=== PATIENT | male | born 1955 | race Caucasian/White ===

== ENCOUNTER 2019-10-02 09:57 | Outpatient (CLI) | payer OTHER, SELFPAY ==
--- NOTE | 2019-10-06 16:14 | WPDHOLTEREM ---
Holter/Event Monitor Holter/Event Monitor Date of procedure: 10/02/19 Procedure Type: 24 hour holter monitor Indications: PVC Conclusion: 1. 24 hour holter monitor on 10/02/19. 2. Predominant rhythtm is sinus rhythm. HR range 48-132 bpm; average HR 75 bpm. 3. There are 2,954 premature supraventricular complexes, 9 supraventricular couplets, 3 supraventricular bigeminy and 177 supraventricular trigeminy. There are 4 short runs of atrial tachycardia, fastest at 152 bpm and longest lasting 6 beats. 4. There are 272 premature ventricular complexes, 1 ventricular couplet and 12 ventricular bigeminy. No ventricular tachycardia. 5. No sinoatrial or atrioventricular blocks. No significant pauses greater than 2 seconds. 6. No symptoms available for correlation.
== END 2019-10-02 09:58 | disposition home or self-care (01) ==
LOC: ANHCARD 09:58
PROVIDERS: PCP Family Medicine; Visit Provider Nurse Practitioner Family
DX: I49.3 Ventricular premature depolarization (principal); I49.9 Cardiac arrhythmia, unspecified
CPT/HCPCS: 93225; 93226

== ENCOUNTER 2021-08-23 08:05 | Emergency (ER) | payer MEDICARE, SELFPAY ==
[2021-08-23 08:15] VITALS: BP 141/82; PULSE 77; RESP 18; TEMP 36.4; O2SAT 99
[2021-08-23 08:20] VITALS: BP 141/82; PULSE 77; RESP 18; TEMP 36.4; O2SAT 99
--- NOTE | 2021-08-23 08:38 | ED.GENADULT ---
HPI - General Adult General Chief complaint: Upper Respiratory Infection Stated complaint: cough/congestion/fever Source: patient Mode of arrival: ambulatory Limitations: no limitations History of Present Illness HPI narrative: Patient is a 65-year-old male who presents to the [facility] via POV for evaluation of upper respiratory symptoms that have been present for approximately 1 week. Additionally, he reports cough, fever, and congestion. Maximum temperature was 101.0. Symptoms improved with azithromycin, DayQuil, NyQuil. Nothing worsens symptoms. He states he is fully vaccinated against Covid and has also received the booster. His PCP called him out a Z-Jose Juan approximately 5 days ago. Today will be his last dose. He reports having a fever of 100.7 prompting today's visit. Related Data Home Medications Medication Instructions Recorded Confirmed aspirin 81 mg chewable tablet 81 mg PO DAILY 07/24/19 08/23/21 multivitamin 1 tablet PO DAILY 07/26/21 08/23/21 Allergies Allergy/AdvReac Type Severity Reaction Status Date / Time No Known Allergies Allergy Verified 08/23/21 08:14 Review of Systems Review of Systems: Denies history of COPD, bronchitis, asthma, and pneumonia. Denies current/past tobacco use. Pertinent negatives: sweats, chills, change in appetite, fatigue, skin color changes, headache, nasal discharge, dizziness, lymphadenopathy, sinus problems, ear pain/drainage, chest pain, heart murmurs, heart palpitations, shortness of breath, wheezing, cyanosis, hemoptysis, hoarseness, orthopnea, pleuritic pain, nausea, vomiting, diarrhea, and myalgias. REPLACED BY [facility] Past Medical History Medical History BMI 29.0-29.9,adult Rotator cuff injury Sleep apnea Surgical History Surgical History Hx of rotator cuff surgery Family History Family History Mother Hypertension Father Family history of coronary artery disease Family history of throat cancer Other Family history of malignant neoplasm Social History Social History Smoking status: Never smoker Alcohol intake: current Substance use: never Substance use type: does not use Exam Narrative: GENERAL: Well-appearing, well-nourished, and in no acute distress. HEAD: Normocephalic, atraumatic. No sinus tenderness or facial swelling appreciated. EYES: PERRLA and EOMI. No evidence of erythema, swelling, or drainage. ENT: Bilateral external ears and ear canals normal. Bilateral TMs are normal.No TM perforation. Nares clear, no rhinorrhea or epistaxis. Bilateral turbinates without erythema/ swelling. Mucous membranes moist and pink. Uvula is midline without erythema and swelling. No evidence of petechial rash, cobblestoning, lesions, ulcers, erythema, swelling, exudates, peritonsillar abscess, tenting, or drooling. Breath odor and voice normal. NECK: Supple. No Lymphadenopathy or nuchal rigidity appreciated. CHEST: Bilateral lung otero are clear to auscultation. No respiratory distress. No evidence of cough or pleuritic cp upon examination. HEART: Regular rate and rhythm. No murmur, gallop, or rub heard. EXTREMITIES: Normal range of motion. No edema. SKIN: Warm, dry, no rash. NEURO: No focal deficits. Alert and oriented x3. Special observations: Smiles. Laughs. Complaints out of proportion to exam findings. Course Vital Signs Vital signs: Vital Signs Temperature 97.5 F L 08/23/21 08:15 Pulse Rate 77 08/23/21 08:15 Respiratory Rate 18 08/23/21 08:15 Blood Pressure 141/82 H 08/23/21 08:15 Pulse Oximetry 99 08/23/21 08:15 Temperature 97.5 F L 08/23/21 08:20 Pulse Rate 77 08/23/21 08:20 Respiratory Rate 18 08/23/21 08:20 Blood Pressure 141/82 H 08/23/21 08:20 Pulse Oximetry 99
== END 2021-08-23 09:03 | disposition home or self-care (01) ==
PROVIDERS: Emergency Provider Nurse Practitioner Family; PCP Family Medicine
DX: J06.9 Acute upper respiratory infection, unspecified (principal); G47.30 Sleep apnea, unspecified
CPT/HCPCS: 87804; 99213; G0463

== ENCOUNTER 2022-06-12 11:24 | Emergency (ER) | payer MEDICARE, SELFPAY ==
--- NOTE | ~2022-06-12 | XR_ITS ---
EXAMINATION: XR wrist LT min 3V DATE: 06/12/2022 11:47 INDICATION: Left wrist pain TECHNIQUE: Posteroanterior, ulnar deviation, oblique, and lateral views of the left wrist were obtain ed. COMPARISON: 09/01/2008 FINDINGS: Bone alignment is normal. There is an acute, nondisplaced fracture at the lateral aspect of the radial styloid. Soft tissue swelling is seen near the fracture. 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 IMPRESSION: 1. Acute nondisplaced fracture at the lateral aspect of the radial styloid. Reviewed, dictated and finalized at location A.
[2022-06-12 11:31] VITALS: BP 145/78; PULSE 70; RESP 16; TEMP 36.2; O2SAT 100
[2022-06-12 11:38] VITALS: BP 145/78; PULSE 70; RESP 16; TEMP 36.2; O2SAT 100
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
== END 2022-06-12 12:30 | disposition home or self-care (01) ==
PROVIDERS: Emergency Provider Nurse Practitioner Family; PCP Family Medicine
DX: S52.515A Nondisplaced fracture of left radial styloid process, initial encounter for closed fracture (principal); V86.95XA Unspecified occupant of 3- or 4- wheeled all-terrain vehicle (ATV) injured in nontraffic accident, initial encounter; G57.30 Lesion of lateral popliteal nerve, unspecified lower limb; Z79.82 Long term (current) use of aspirin
CPT/HCPCS: 29125; 73110; 99214; G0463

== ENCOUNTER 2022-07-06 13:34 | Outpatient (CLI) | payer MEDICARE, SELFPAY ==
--- NOTE | ~2022-07-06 | XR_ITS ---
XR wrist LT min 3V DATE: 07/06/2022 13:52 INDICATION: Fracture of radial styloid process 2 weeks ago TECHNIQUE: 4 views COMPARISON: 06/12/2022 left wrist FINDINGS: The fracture line at the radial styloid process is less apparent on the current examination consistent with some interval healing. Chondrocalcinosis of the triangular cartilage. Prominent osteophytic change at triscaphe and first carpometacarpal joints. IMPRESSION: Healing virtually nondisplaced radial styloid process fracture Reviewed, dictated and finalized at location A.
== END 2022-07-06 13:35 | disposition home or self-care (01) ==
PROVIDERS: PCP Family Medicine; Visit Provider Orthopaedic Surgery
DX: S52.515D Nondisplaced fracture of left radial styloid process, subsequent encounter for closed fracture with routine healing (principal)
CPT/HCPCS: 73110

== ENCOUNTER 2022-12-15 14:39 | Outpatient (CLI) | payer MEDICARE, SELFPAY ==
--- NOTE | ~2022-12-15 | CT_ITS ---
EXAMINATION:CT diagnostic chest wo con DATE: 12/15/2022 14:58 INDICATION: Lung nodule. TECHNIQUE: Computed tomography (CT) of the chest was performed without intravenous contrast. Automate d exposure control and iterative reconstruction technique were employed. The dose-length product (DLP ) was 217.58 mGy-cm. COMPARISON: Chest CT 06/14/2018 FINDINGS: There is mild scarring in paraspinal right lower lobe. There is mild atelectasis bilaterall y. Calcified bilateral lung nodules and calcified right hilar and mediastinal lymph nodes are consist ent with old granulomatous disease. There is a 2 mm nodule in right lower lobe. There is a 2 mm nodul e in left upper lobe. No pleural effusion. The heart size is normal. There are coronary artery calcif ications. No pericardial effusion. There is a total left shoulder arthroplasty. There is a suture anc hor in right humeral head. There is thoracic kyphosis with mild chronic anterior wedging of multiple vertebral bodies. There is mild thoracic spondylosis. There are old healed left rib fractures. IMPRESSION: 1. Small pulmonary nodules, likely benign. Reviewed, dictated and finalized at location A.
== END 2022-12-15 14:40 | disposition home or self-care (01) ==
PROVIDERS: PCP Family Medicine; Visit Provider Nurse Practitioner Family
DX: R91.8 Other nonspecific abnormal finding of lung field (principal)
CPT/HCPCS: 71250

== ENCOUNTER 2023-06-07 09:11 | Emergency (ER) | payer MEDICARE, SELFPAY ==
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
[2023-06-07 09:22] VITALS: BP 143/80; PULSE 66; RESP 18; TEMP 36.5; O2SAT 98
== END 2023-06-07 10:19 | disposition home or self-care (01) ==
PROVIDERS: Emergency Provider Nurse Practitioner Family; PCP Family Medicine
DX: S60.132A Contusion of left middle finger with damage to nail, initial encounter (principal); S62.663B Nondisplaced fracture of distal phalanx of left middle finger, initial encounter for open fracture; T14.90XA Injury, unspecified, initial encounter; W27.8XXA Contact with other nonpowered hand tool, initial encounter
CPT/HCPCS: 11740; 73140; 99213; G0463

== ENCOUNTER → 2023-06-07 10:57 | Outpatient (CLI) | payer MEDICARE, SELFPAY ==
--- NOTE | ~2023-06-07 | MR_ITS ---
EXAMINATION: MR pelvis wo/w con DATE: 06/07/2023 12:30 INDICATION: Prostate cancer. TECHNIQUE: Magnetic resonance imaging (MRI) of the pelvis was performed without and with 20 mL MultiH ance intravenous contrast. COMPARISON: None. FINDINGS: The prostate is mildly enlarged. There is diverticulosis of the colon without evidence of diverticuli tis. There are no pathologically enlarged lymph nodes. There is no free intraperitoneal fluid. IMPRESSION: 1. Mildly enlarged prostate. No evidence of metastatic disease. Reviewed, dictated and finalized at location E.
== END ==
PROVIDERS: PCP Radiology Radiation Oncology; Visit Provider Urology
DX: C61 Malignant neoplasm of prostate (principal); N40.0 Benign prostatic hyperplasia without lower urinary tract symptoms
CPT/HCPCS: 72197; A9577

== ENCOUNTER 2023-09-03 10:51 | Emergency (ER) | payer MEDICARE, SELFPAY ==
[2023-09-03 11:03] VITALS: BP 142/80; PULSE 68; RESP 16; TEMP 36.9; O2SAT 99
--- NOTE | 2023-09-03 12:03 | ED.UPPEXIN ---
HPI - Extremity Injury (Upper) General Chief Complaint: Extremity Injury, Upper Stated Complaint: Left Hand Finger Pain Time Seen by Provider: 09/03/23 12:03 Source: patient Mode of arrival: ambulatory Limitations: no limitations History of Present Illness HPI narrative: 67-year-old male presented for complaint of left finger pain surrounding the nail bed. Patient endorses this nail fell off after injury in June of 2023, he states the nail has been growing back without difficulty. He followed with the hand specialist as directed. Related Data Home Medications Medication Instructions Recorded Confirmed multivitamin 1 tablet PO DAILY 07/26/21 07/09/23 loratadine 10 mg tablet (Claritin) 10 mg PO DAILY 05/04/23 07/09/23 Allergies Allergy/AdvReac Type Severity Reaction Status Date / Time No Known Allergies Allergy Verified 07/09/23 13:40 Review of Systems Review of Systems: CONSTITUTIONAL: Denies body aches, fever, chills EYES: Denies visual changes ENT: Denies rhinorrhea, congestion CARDIOVASCULAR: Denies chest pain, palpitations, or edema. RESPIRATORY: Denies cough or dyspnea. GASTROINTESTINAL: Denies abdominal pain, nausea, vomiting, or diarrhea. SKIN: Denies rash, itching, or wounds. MUSCULOSKELETAL: Reports redness, swelling, pain around the fingernail the left 3rd digit Denies back pain, joint pain, or myalgia. NEUROLOGIC: Denies headache, numbness, tingling, or weakness. PSYCH: Denies depression or anxiety. All systems reviewed & are unremarkable except as noted in HPI and below PMFSH Past Medical History Medical History BMI 29.0-29.9,adult BMI 31.0-31.9,adult History of stress test Rotator cuff injury Sleep apnea Surgical History Surgical History History of right knee joint replacement Hx of rotator cuff surgery Family History Family History Mother Hypertension Father Family history of coronary artery disease Family history of throat cancer Sibling , colon cancer No problems noted. Sibling No problems noted. Other Family history of malignant neoplasm Social History Social History Smoking status: Never smoker Second hand tobacco smoke exposure: Yes Alcohol intake: current Drinks per week: 2 Substance use: never Substance use type: does not use Lack of Transportation: No Lack of Food: Never True Current Housing: I Have Housing Concerned About Future Housing: No Difficulty Paying Gas/Electric Bills: No Difficulty Paying for Meds: No Currently Unemployed: No Education: Associate Degree Difficulty w/ Childcare or Family Care: No Living arrangements: with family Occupation/Education: retired Additional occupation/education comments: [employer] Gender identity (if verbalized by the patient): Male Comments At time of signature, I have reviewed and agree with nursing past medical, surgical, social and family history unless otherwise noted. Please see nursing chart for further information. There is no relevant family history pertinent to the presenting complaint Exam Narrative: GENERAL: Well-appearing CHEST: Speaks in full sentences. No respiratory distress. HEART: Regular rate and rhythm. Normal and equal peripheral pulses. EXTREMITIES: Left 3rd digit distal phalanx with mild erythema and swelling surrounding the nailbed, nail appears to have purulent drainage under the nail; no active drainage. Tenderness to the site of the distal nail meeting the skin. Nail appears to be curving down into the skin. No felon, no fluctuance, no streaking or extension of swelling. Hand has normal strength and sensation, normal range of motion to 3rd digit. No open wounds, or obvious deformity; pu
== END 2023-09-03 12:24 | disposition home or self-care (01) ==
PROVIDERS: Emergency Provider Nurse Practitioner Family; PCP Family Medicine
DX: L03.012 Cellulitis of left finger (principal)
CPT/HCPCS: 99213; G0463

== ENCOUNTER 2023-12-10 08:40 | Outpatient (CLI) | payer MEDICARE, SELFPAY ==
--- NOTE | ~2023-12-10 | CT_ITS ---
CT Scan of the Chest without Contrast: Clinical Indication: Pulmonary nodule Technique: Contiguous sections were acquired throughout the chest without intravenous contrast. Dose reduction technique was used on this scan by utilizing automated exposure control and iterative recon struction technique. The dose-length product (DLP) was 311.44 mGy-cm. COMPARISON: Report from prior exam dated 12/15/2022 Findings: There is no evidence of any significant mediastinal, hilar or axillary lymphadenopathy. Coronary eric ry calcifications are present. There is no evidence of pleural or pericardial effusion. The lungs are clear, aside from calcified right basilar granuloma. Images through the upper abdomen reveal no abnormalities. Impression: Calcified right basilar granuloma, benign. Reviewed, dictated and finalized at location . Impression: Calcified right basilar granuloma, benign.
== END 2023-12-10 08:41 | disposition home or self-care (01) ==
PROVIDERS: PCP Family Medicine; Visit Provider Physician Assistant
DX: R91.1 Solitary pulmonary nodule (principal); J84.10 Pulmonary fibrosis, unspecified; R91.8 Other nonspecific abnormal finding of lung field
CPT/HCPCS: 71250

== ENCOUNTER 2024-02-28 09:44 | Outpatient (CLI) | payer MEDICARE, SELFPAY ==
--- NOTE | ~2024-02-28 | CT_ITS ---
EXAMINATION: CT soft tissue neck w con DATE: 02/28/2024 10:10 INDICATION: Otalgia, left ear. TECHNIQUE: Computed tomography (CT) of the neck was performed with 75 mL Omnipaque-350 intravenous co ntrast. Automated exposure control and iterative reconstruction technique were employed. The dose-roldan gth product was 490.32 mGy-cm. COMPARISON: None FINDINGS: There are no pathologically enlarged lymph nodes. There is 0% stenosis of the proximal estevez tid arteries relative to normal distal artery lumen diameters. The parotid glands are normal. There i s mild mucosal thickening in right maxillary sinus. The tympanic cavities are normal. The mastoid air cells are normal. There is mild cervical spondylosis. IMPRESSION: 1. No etiology for the patient's symptoms. Reviewed, dictated and finalized at location A.
[2024-02-28 10:00] LABS: Estimated Glomerular Filt Rate > 60
== END 2024-02-28 09:45 ==
LOC: MICIMG 09:45
PROVIDERS: PCP Family Medicine; Visit Provider Otolaryngology
DX: H92.02 Otalgia, left ear (principal)
CPT/HCPCS: 70491; Q9967

== ENCOUNTER 2024-09-11 09:06 | Outpatient (CLI) | payer MEDICARE, SELFPAY ==
--- NOTE | ~2024-09-11 | XR_ITS ---
EXAM: XR elbow RT 2V DATE: 09/11/2024 09:18 HISTORY: M25.521 - Pain in right elbow . COMPARISON: None available. FINDINGS: Normal mineralization. No fracture or dislocation. No lytic or blastic lesion. Olecranon a nd lateral epicondylar enthesopathy. Mild degenerative change at the elbow joint. No erosion or perio steal change. Soft tissues within normal limits. IMPRESSION: No acute osseous finding in the right elbow. Reviewed, dictated and finalized at location K. [employer]ER
== END 2024-09-11 09:07 | disposition home or self-care (01) ==
LOC: MICIMG 09:08
PROVIDERS: PCP Family Medicine; Visit Provider Nurse Practitioner Family
DX: M25.521 Pain in right elbow (principal)
CPT/HCPCS: 73070

== ENCOUNTER 2024-11-12 13:38 | Outpatient (CLI) | payer MEDICARE, SELFPAY ==
--- NOTE | ~2024-11-12 | XR_ITS ---
3 VIEWS LUMBAR SPINE Ordering provider: Shyann Warren APRN History: . M54.50 - Low back pain, unspecified . Comparison: None. FINDINGS: VERTEBRAL BODIES: No visible fracture or subluxation. Degenerative changes of the spine. DISK SPACES: Normal. Facet joint disease at the level of L3-L4, L4-L5 and L5-S1. SOFT TISSUES: Normal. Aortic calcifications. Bilateral mild to moderate osteoarthritic changes. IMPRESSION: No acute osseous abnormality lumbar spine. Multilevel facet joint disease. Bilateral hip osteoarthritic changes. Reviewed, dictated and finalized at location A.
== END 2024-11-12 13:39 | disposition home or self-care (01) ==
LOC: MICIMG 13:40
PROVIDERS: PCP Family Medicine; Visit Provider Nurse Practitioner Family
DX: M47.816 Spondylosis without myelopathy or radiculopathy, lumbar region (principal); M47.817 Spondylosis without myelopathy or radiculopathy, lumbosacral region; M16.0 Bilateral primary osteoarthritis of hip; M54.50 Low back pain, unspecified
CPT/HCPCS: 72100

== ENCOUNTER 2024-12-02 11:07 | Outpatient (CLI) | payer MEDICARE, SELFPAY ==
--- NOTE | ~2024-12-02 | CT_ITS ---
CT Scan of the Chest without Contrast: Clinical Indication: Pulmonary nodule Technique: Contiguous sections were acquired throughout the chest without intravenous contrast. Dose reduction technique was used on this scan by utilizing automated exposure control and iterative recon struction technique. The dose-length product (DLP) was 161.73 mGy-cm. COMPARISON: 12/10/2023 Findings: There is no evidence of any significant mediastinal, hilar or axillary lymphadenopathy. Coronary eric ry calcifications present. There is no evidence of pleural or pericardial effusion. Stable 2 mm left apical pulmonary nodule. Stable calcified right middle lobe granuloma inferiorly. Images through the upper abdomen reveal no abnormalities. Impression: Stable 2 mm left apical pulmonary nodule. Reviewed, dictated and finalized at location . Impression: Stable 2 mm left apical pulmonary nodule.
--- OUTSIDE RECORDS SUMMARY | 2024-12-02 12:26 | XMS_ITS | Referral Summary ---
Author Organization [facility] Address [address] [facility] [place] [address] Care Team Providers Care Lead Instructor/Flight Attendant Name Role Phone August Garrett MD Primary Care Provider [phone] Encounters Date Type Department Care Team Description 10/06/2024 7:58 AM COFFERDAM CONSTRUCTION SUPERVISOR - 10/06/2024 11:59 PM COFFERDAM CONSTRUCTION SUPERVISOR Hospital Encounter [facility] [address] [place] [id number] Status post total shoulder arthroplasty, left Discharge Disposition: Discharge to home or self care 10/06/2024 7:50 AM COFFERDAM CONSTRUCTION SUPERVISOR Office Visit [facility] Orthopaedic Surgery [address] [place] [address] 2nd [address] [place] [address] Miguel A Carbone MD Status post total shoulder arthroplasty, left (Primary Dx) from Last 3 Months Allergies No known active allergies Medications citalopram (CeleXA) 40 mg tabletIndicatio ns:Anxiety with Depression Take 1 tablet (40 mg total) by mouth nightly 02/15/2018 Active atorvastatin (LIPITOR) 40 mg tabletIndicatio ns:hyperlipidem ia Take 1 tablet (40 mg total) by mouth every morning Active multivitamin with minerals tabletIndicatio ns:Vitamin Deficiency Prevention Take 1 tablet by mouth every morning Active famotidine (PEPCID) 20 mg tabletIndicatio ns:Heartburn Take 1 tablet (20 mg total) by mouth every morning 02/03/2020 Active acetaminophen 500 mg capsuleIndicati ons:Pain Take 2 capsules (1,000 mg total) by mouth every 6 (six) hours 90 tablet 08/08/2022 Active aspirin 81 mg enteric coated tabletIndicatio ns:Deep Vein Thrombosis Prevention Take 1 tablet (81 mg total) by mouth 2 (two) times a day for 14 days 28 tablet 08/08/2022 Active docusate sodium (COLACE) 100 mg capsuleIndicati ons:constipatio n Take 1 capsule (100 mg total) by mouth 2 (two) times a day for 14 days 30 capsule 08/08/2022 Active amoxicillin-cla vulanate (AUGMENTIN) 875-125 mg per tablet Take 1 tablet by mouth every 12 (twelve) hours for 10 days 01/01/2024 Active ciprofloxacin-d exAMETHasone (CIPRODEX) otic suspension SHAKE LIQUID AND INSTILL 5 DROPS INTO LEFT EAR EVERY 12 HOURS FOR 7 DAYS 02/15/2024 Active meloxicam (MOBIC) 15 mg tablet TAKE 1 TABLET(15 MG) BY MOUTH DAILY 30 tablet 2 07/02/2024 Active Active Problems Problem Noted Date Diagnosed Date Glenohumeral arthritis, left 08/08/2022 Anxiety 07/25/2022 Shoulder arthritis 05/24/2022 Overview (05/24/2022): Added automatically from request for surgery [id number] Localized, primary osteoarthritis of hand 2020 Pain in joint of right shoulder 01/03/2021 Overview (01/03/2021): Added automatically from request for surgery [id number] Biceps tendinitis of right upper extremity 01/03 Overview (01/03/2021): Added automatically from request for surgery [id number] Hyperlipidemia LDL goal <100 10/10/2019 KAREEN on CPAP 10/10/2019 PAT (paroxysmal atrial tachycardia) 10/10/2019 PVC (premature ventricular contraction) 10/10/19 20 PAC (premature atrial contraction) 10/10/2019 Holter monitor, abnormal 10/10/2019 Aftercare following right knee joint replacement surgery 04/03/2018 Nausea & vomiting 04/12/2017 Need for prophylactic antibiotic 01/26/2017 Aftercare following right knee joint replacement surgery 01/19/2017 Knee pain 09/28/2016 Complete tear of rotator cuff 05/02/2011 Rotator cuff tendonitis 05/02/2011 Immunizations Immunization Administration Dates Next Due Influenza, Trivalent, IM (MDV) 08/15/2014,2011 Influenza, Trivalent, Preservative Free, Intramu scular 07/10/2017 Influenza, Unspecified 06/12/2022 ZOSTER Recombinant 10/07/2018,06/17/2018 Social History Tobacco Use Types Packs/Day Years Used Date Smoking Tobacco: Never Smokeless Tobacco: Never Tobacco Cessation:Counseling Given: Not Answered Alcohol Use Standard Drinks/Week Comments Yes 2 (1 standard drink = 0.6 oz pur e alcohol) AUDIT-C Answer Date Recorded Q1: How often do you have a drink containing alc ohol? 2-3 times a week 08/08/2022 Average Number of Drinks Not on file 022 Frequency of Binge Drinking Not on file 02/2022 Sex and Gender Information Value Date Recorded Sex Assigned at Not on file Legal Sex Male 12:44 AM COFFERDAM CONSTRUCTION SUPERVISOR Gender Identity Not on file Sexual Orientation Not on file Last Filed Vital Signs Vital Sign Reading Time Taken Comments Blood Pressure 120/70 11/19/2023 7:56 AM CDT Pulse 74 11/19/2023 7:56 AM CDT Temperature 36.3 C (97.4 F) 08/09/2022 8:06 AM COFFERDAM CONSTRUCTION SUPERVISOR Respiratory Rate 15 08/09/2022 8:06 AM COFFERDAM CONSTRUCTION SUPERVISOR Oxygen Saturation 95% 11/19/2023 7:56 AM CDT Inhaled Oxygen Concentration - - Weight 113.4 kg (250 lb) 10/06/2024 7:50 AM COFFERDAM CONSTRUCTION SUPERVISOR Height 190.5 cm (6' 3 ) 10/06/2024 7:50 AM COFFERDAM CONSTRUCTION SUPERVISOR Body Mass Index 31.25 10/06/2024 7:50 AM COFFERDAM CONSTRUCTION SUPERVISOR Plan of Treatment Not on file Medical Devices Implanted Type Area Group Sales Coordinator Device Identifier Shelf Expiration Date Model / Serial / Lot Rt Knee Knee [employer] Ar-2324 Bcm Swivelock 4.75mm 24.5mm Self Punch Vent Shoulder [place] Suture - [id number] Implanted:Qty: 1 on 03/03/2021 by Jayy Long MD at [facility] Right: Shoulder [employer] 12/01/2024 [id number] / / [id number] [employer] Ar-3670 Set Implant Arthrex Fibertak Biceps Sterile Latex Free - [id number] Implanted:Qty: 1 on 03/03/2021 by Jayy Long MD at [facility] Right: Shoulder [employer] 06/02/2025 AR-3670 / / [id number] [employer] Simplex P Radiopaque Full Dose Cement Bone Sterile 6191-1-010 - [id number] Implanted:Qty: 1 on 08/08/2022 by Jayy Long MD at [facility] [employer] 12/31/2024 6191-1-010 / / [id number] [employer] [place] 2 Peg Monoblock Shoulder 4 Component Glenoid Sterile [id number] - [id number] Implanted:Qty: 1 on 08/08/2022 by Jayy Long MD at [facility] [employer] 01/01/2028 [id number] / / [id number] [employer] Humeral [place] Shoulder Sidus [id number] 0 [id number] - [id number] Implanted:Qty: 1 on 08/08/2022 by Jayy Long MD at [facility] Left: Acromial Process [employer] 2031 [id number] / / [id number] [employer] Sidus Od48 Mm H17 Mm Stem Free Shoulder Head Humeral Sterile Latex Free [id number] - [id number] Implanted:Qty: 1 on 08/08/2022 by Jayy Long MD at [facility] Left: Shoulder [employer] 09/22/2031 [id number] / / [id number] Procedures Procedure Name Priority Date/Time Associated Diagnosis Comments XR SHOULDER LEFT 2 OR MORE VIEWS Schedule Routine, Read Routine (OP Routine) 10/06/2024 8:03 AM COFFERDAM CONSTRUCTION SUPERVISOR Status post total shoulder arthroplasty, left from Last 3 Months Results * XR Shoulder Left 2+ View (10/06/2024 8:03 AM COFFERDAM CONSTRUCTION SUPERVISOR) Anatomical Region Laterality Modality Upper Extremities, Shoulder Left Comp uted Radiography 10/06/2024 8:12 AM COFFERDAM CONSTRUCTION SUPERVISOR Impressions 10/06/2024 8:12 AM COFFERDAM CONSTRUCTION SUPERVISOR Unchanged total left shoulder arthroplasty in near anatomic position. Electronically signed by: Miguel A Garcia MD Narrative 10/06/2024 8:12 AM COFFERDAM CONSTRUCTION SUPERVISOR EXAMINATION: XR SHOULDER LEFT 2 OR MORE VIEWS HISTORY: Left shoulder osteoarthritis FINDINGS: Comparison dated 08/06/2023. Unchanged total left shoulder arthroplasty in near anatomic position. No periprosthetic fracture. Moderate left acromioclavicular osteoarthritis. No soft tissue abnormalities. Procedure Note Miguel A Garcia MD - 10/06/2024 EXAMINATION: XR SHOULDER LEFT 2 OR MORE VIEWS HISTORY: Left shoulder osteoarthritis FINDINGS: Comparison dated 08/06/2023. Unchanged total left shoulder arthroplasty in near anatomic position. No periprosthetic fracture. Moderate left acromioclavicular osteoarthritis. No soft tissue abnormalities. IMPRESSION: Unchanged total left shoulder arthroplasty in near anatomic position. Electronically signed by: Miguel A Garcia MD Miguel A Carbone MD IMG XR PROCEDURES Final Result from Last 3 [place] [address] [facility] MEDICARE [facility] MEDICARE [facility] Advance Directives For more information, please contact: [phone] * Full Code (Latest Code Status on File) Date Activated Date Inactivated Comments 08/08/2022 1:46 PM 08/09/2022 3:11 PM Care Teams Lead Instructor/Flight Attendant Relationship Specialty Start Date End Date Aguust Garrett MD PCP - General 12/01/15
--- OUTSIDE RECORDS SUMMARY | 2024-12-02 12:26 | XMS_ITS | Encounter Summary ---
Author Organization [facility] Address [address] [place] [address] Care Team Providers Care Medical Observer Name Role Phone Brian Bautista MD Unavailable [phone] August Garrett MD Primary Care Provider [phone] August Garrett MD Primary Care Provider [phone] Encounter Details Date Type Department Care Team (Late st Contact Info) Description 08/12/2020 Lab Requisition [facility] DermPath Lab [address] [facility], [place] [phone] Anju Lyle MD [address] [facility] 3 [place] [address] Social History Tobacco Use Types Packs/Day Years Used Date Smoking Tobacco: Never Alcohol Use Standard Drinks/Week Comments Yes 0 (1 standard drink = 0.6 oz pur e alcohol) Sex and Gender Information Value Date Recorded Sex Assigned at Not on file Gender Identity Not on file Sexual Orientation Not on file documented as of this encounter Plan of Treatment Not on file documented as of this encounter Procedures Procedure Name Priority Date/Time Associated Diagnosis Comments DERMATOPATHOLOGY Routine 08/12/2020 12:0 0 AM ART HISTORIAN documented in this encounter Results * DERMATOPATHOLOGY (08/12/2020 12:00 AM ART HISTORIAN) Case Report Dermatopathology Report Case: [id number] Authorizing Provider: Anju Lyle MD Collected: 08/12/2020 12:00 AM Ordering Location: [facility] Derm[facility] Lab Received: 08/12/2020 11:24 AM Pathologist: Tom Correa MD Specimen: Skin, right FH scalp 0 4:02 PM ART HISTORIAN DERMATOPATHOLOGY LABORATORY Final Diagnosis Specimen A. SKIN, right FH scalp: ACTINIC KERATOSIS, LICHENOID (L57.0) POST-INFLAMMATORY PIGMENT ALTERATION (L81.9) 0 4:02 PM ART HISTORIAN DERMATOPATHOLOGY LABORATORY Clinical History R/O pig BCC, irregular color. 0 4:02 PM ART HISTORIAN DERMATOPATHOLOGY LABORATORY Gross Description Specimen A: Received is one formalin filled container labeled with the patient's name and designated right FH scalp. The specimen consists of a shave measuring [id number]. Jar 0. 0 4:02 PM ART HISTORIAN DERMATOPATHOLOGY LABORATORY Microscopic Description Specimen A. SKIN, right FH scalp: There is focal parakeratosis. The lower half of the epidermis shows disorderly maturation of keratinocytes with nuclear pleomorphism. The dermis shows a band-like, chronic inflammatory infiltrate with occasional apoptotic keratinocytes and some basal vacuolar alteration. Sections show abundant melanin within melanophages around the superficial vascular plexus. 0 4:02 PM ART HISTORIAN DERMATOPATHOLOGY LABORATORY Disclaimer An external and internal positive and negative controls are appropriate for the histochemical, immunohistochemical and immunofluorescence stain(s) in this case (if any), except where stated explicitly. The performance characteristics of the stain(s) cited in this report were developed and its performance characteristic determined by the Dermatopathology Laboratory at [facility], directed by Dr. Hunter Correa. These tests need not be, and therefore are not, approved by the [place] Food and Drug Administration. The tests are used for clinical purposes. Billing Codes Specimen Charges Stain Charges 46517 1 0 4:02 PM ART HISTORIAN DERMATOPATHOLOGY LABORATORY Embedded Images 0 4:02 PM ART HISTORIAN DERMATOPATHOLOGY LABORATORY Pathology/Cytolog y TISSUE SPECIMEN FROM SKIN / Unknown 08/12/2020 08/12/2020 11:24 AM ART HISTORIAN Anju Lyle MD LAB - PATHOLOGY/CYT OLOGY ORDERABLES DERMATOPATHOLOGY LABORATORY [facility] - Department of Dermatology [address] Floor [address] [phone] documented in this encounter Visit Diagnoses Not on filedocumented in this encounter Care Teams Medical Observer Relationship Specialty Start Date End Date August Garrett MD [address] [place] [phone] PCP - General Family Medicine 08/10/16 04/03/24 August Garrett MD [address] [place] [address] PCP - General Family Medicine 04/04/24 [place] [address] [address] Orthopedic Surgery 08/10/16 documented as of this encounter
--- OUTSIDE RECORDS SUMMARY | 2024-12-02 12:26 | XMS_ITS | Encounter Summary ---
Author Organization [facility] Address [address] [facility] [facility] [place] [address] Care Team Providers Care Retail Loan Originator Assistant Name Role Phone Brian Bautista MD Unavailable [phone] August Garrett MD Primary Care Provider [phone] August Garrett MD Primary Care Provider [phone] Encounter Details Date Type Department Care Team (Late st Contact Info) Description 07/04/2019 Lab Requisition [facility] DermPath Lab [address] [facility], [place] [address] [phone] Anju Lyle MD [address] [facility] 3 [place] [address] Social History Tobacco Use Types Packs/Day Years [...] Procedure Name Priority Date/Time Associated Diagnosis Comments DERMATOPATH TECHNICAL REPORT Routine 07/04/2019 12:00 AM CDT documented in this encounter Results * DERMATOPATH TECHNICAL REPORT (07/04/2019 12:00 AM CDT) Case Report Dermatopathology Report Case: [id number] Authorizing Provider: Anju Lyle MD Collected: 07/04/2019 12:00 AM Ordering Location: [facility] DermPath Lab Received: 07/04/2019 11:45 AM Pathologist: Tom Correa MD Specimen: Skin, right anterior shoulder 12:57 PM CDT DERMATOPATHOLOGY LABORATORY Clinical History R/O BCC, irritated. 12:57 PM CDT DERMATOPATHOLOGY LABORATORY Gross Description Specimen A: Received is one formalin filled container labeled with the patient's name and designated right anterior shoulder. The specimen consists of a shave measuring [id number]. Jar 0. [facility] Dermatopathology Laboratory performed the technical component only. 12:57 PM CDT DERMATOPATHOLOGY LABORATORY Embedded Images 12:57 PM CDT DERMATOPATHOLOGY LABORATORY DISCLAIMER An external and internal positive and negative controls are appropriate for the histochemical, immunohistochemical and immunofluorescence stain(s) in this case (if any), except where stated explicitly. The performance characteristics of the stain(s) cited in this report were developed and its performance characteristic determined by the Dermatopathology Laboratory at [facility], directed by Dr. Hunter Correa. These tests need not be, and therefore are not, approved by the [place] Food and Drug Administration. The tests are used for clinical purposes. 12:57 PM CDT DERMATOPATHOLOGY LABORATORY Pathology/Cytolog y TISSUE SPECIMEN FROM SKIN / Unknown 07/04/2019 07/04/2019 11:45 AM CDT Anju Lyle MD LAB - PATHOLOGY/CYT OLOGY ORDERABLES Performing Organization Address City/State/[facility] Co de Phone Number DERMATOPATHOLOGY LABORATORY [facility] - Department of Dermatology [address] [place] [address], 5th Floor Lab [address] [phone] documented in this encounter Visit Diagnoses Not on filedocumented in this encounter Care Teams Retail Loan Originator Assistant Relationship Specialty Start Date End Date August Garrett MD [address] [place] [address] PCP - General Family Medicine 08/10/16 04/03/24 August Garrett MD [address] [place] [address] PCP - General Family Medicine 04/04/24 [place] [address] [address] Orthopedic Surgery 08/10/16 documented as of this encounter
--- OUTSIDE RECORDS SUMMARY | 2024-12-02 12:26 | XMS_ITS | Encounter Summary ---
Author Organization [facility] Address [address] [facility] [place] [address] Care Team Providers Care Lead Principal Technical Architect Name Role Phone Brian Bautista MD Unavailable [phone] August Garrett MD Primary Care Provider [phone] August Garrett MD Primary Care Provider [phone] Encounter Details Date Type Department Care Team (Late st Contact Info) Description 02/10/2020 Lab Requisition [facility] DermPath Lab [address] [facility], [place] [address] [phone] Anju Lyle MD [address] [facility] 3 DEPT [place] [address] Social History Tobacco Use Types Packs/Day Years [...] Priority Date/Time Associated Diagnosis Comments DERMATOPATHOLOGY Routine 02/10/2020 12:0 0 AM CDT documented in this encounter Results * DERMATOPATHOLOGY (02/10/2020 12:00 AM CDT) Case Report Dermatopathology Report Case: [id number] Authorizing Provider: Anju Lyle MD Collected: 02/10/2020 12:00 AM Ordering Location: [facility] DermPath Lab Received: 02/10/2020 11:22 AM Pathologist: Marva Rodriguez MD Specimen: Skin, left anti helix 0 1:52 PM CDT DERMATOPATHOLOGY LABORATORY Final Diagnosis Specimen A. SKIN, left anti helix: BASAL CELL CARCINOMA (C44.219) (see microscopic description and comment) 0 1:52 PM CDT DERMATOPATHOLOGY LABORATORY Clinical History R/O BCC, irritated, non-healing 0 1:52 PM CDT DERMATOPATHOLOGY LABORATORY Gross Description Specimen A: Received is one formalin filled container labeled with the patient's name and designated left anti helix. The specimen consists of a shave biopsy measuring 7x4x1 mm. Jar 0. 0 1:52 PM CDT DERMATOPATHOLOGY LABORATORY Microscopic Description Specimen A. SKIN, left anti helix: The specimen consists of aggregates of basaloid cells, located within the superficial dermis, with high nuclear to cytoplasmic ratio and peripheral palisading. COMMENT: The small size of the specimen limits subtyping of the lesion. 0 1:52 PM CDT DERMATOPATHOLOGY LABORATORY Disclaimer An external and internal positive and negative controls are appropriate for the histochemical, immunohistochemical and immunofluorescence stain(s) in this case (if any), except where stated explicitly. The performance characteristics of the stain(s) cited in this report were developed and its performance characteristic determined by the Dermatopathology Laboratory at [facility], directed by Dr. Hunter Correa. These tests need not be, and therefore are not, approved by the [place] Food and Drug Administration. The tests are used for clinical purposes. Billing Codes Specimen Charges Stain Charges 78987 1 0 1:52 PM CDT DERMATOPATHOLOGY LABORATORY Embedded Images 0 1:52 PM CDT DERMATOPATHOLOGY LABORATORY Pathology/Cytolog y TISSUE SPECIMEN FROM SKIN / Unknown 02/10/2020 02/10/2020 11:22 AM CDT Anju Lyle MD LAB - PATHOLOGY/CYT OLOGY ORDERABLES DERMATOPATHOLOGY LABORATORY [facility] - Department of Dermatology Skates Operator [place]/[address] [phone] documented in this encounter Visit Diagnoses Not on filedocumented in this encounter Care Teams Lead Principal Technical Architect Relationship Specialty Start Date End Date August Garrett MD [address] [place] [address] PCP - General Family Medicine 08/10/16 04/03/24 August Garrett MD [address] [place] [address] PCP - General Family Medicine 04/04/24 [place] [address] [address] Orthopedic Surgery 08/10/16 documented as of this encounter
--- OUTSIDE RECORDS SUMMARY | 2024-12-02 12:26 | XMS_ITS | Encounter Summary ---
Author Organization [facility] Address [address] [place] [address] Care Team Providers Care Epic Professional Name Role Phone August Garrett MD Primary Care Provider [phone] Encounter Details Date Type Department Care Team (Late st Contact Info) Description 07/24/2022 Treatment [facility] PATHOLOGY [address] [facility] [address]rd [place] [address] Manish Dejesus MD [facility] [address] [facility] [phone] [place] [address] Social History Tobacco Use Types Packs/Day Years Used Date Smoking Tobacco: Never Smokeless Tobacco: Never Alcohol Use Standard Drinks/Week Comments Yes 2 (1 standard drink = 0.6 oz pur e alcohol) AUDIT-C Answer Date Recorded Q1: How often do you have a drink containing alc ohol? 2-3 times a week 07/20/2022 Q2: How many drinks containi ng alcohol do you have on a typical day when you are drinking? 3 or 4 07/20/2022 Q3: How often do you have si x or more drinks on one occasion? Never 07/20/2022 Sex and Gender Information Value Date Recorded Sex Assigned at Not on file Legal Sex Male 12:44 AM HEALTH CARE COORDINATOR Gender Identity Not on file Sexual Orientation Not on file documented as of this encounter Progress Notes * Manish Dejesus MD - 07/24/2022 2:22 PM CST Transfusion Medicine Blood Bank Note Patient Information: ABO/Rh: O positive Antibody screen: Positive Previous antibodies: No known antibodies Antibodies identified: anti-M Additional testing performed: Red blood cell phenotype: M negative. Relevant Patient History: Milton Alejandro is a 66 y.o. man who is being evaluated for left total shoulder arthroplasty. Testing Information: The antibody screen was positive. Antibody identification demonstrated antibodies against the M antigen in the patient???s plasma. Additional testing was performed. Phenotyping showed that the patient's red blood cells are M antigen negative. All other common, clinically significant antibodies have been ruled out. Clinical Relevance: Anti-M antibodies have not been implicated in hemolytic transfusion reactions with extravascular hemolysis.Therefore, anti-M antibodies are not generally considered to be clinically significant. Presence of this antibody requires that additional testing be performed and this may result in additional time for blood product selection when ordered for transfusion. Therapeutic Relevance: ABO/Rh and crossmatch compatible red blood cell units will be provided for future transfusions. When these are unavailable, units negative for the M antigen will be provided. Approximately 22% ABO/Rh compatible units from the donor population are expected to be compatible. Approximately 4-5 units will need to be screened to find one compatible unit for this patient. Contact Information: Please contact the [facility] Blood Bank with any questions. This report has been prepared by: Manish Dejesus MD Cosigned by Leslie Beebe MD PhD at 07/26/2022 4:21 PM HEALTH CARE COORDINATOR TH CARE COORDINATOR TH CARE COORDINATOR TH CARE COORDINATOR TH CARE COORDINATOR Associated attestation - Leslie Beebe MD PhD - 07/26/2022 4:21 PM HEALTH CARE COORDINATOR Attestation: I have personally reviewed the antibody result and agree with the interpretation contained in this written blood bank report. Leslie Beebe MD PhD documented in this encounter Plan of Treatment Not on file documented as of this encounter Visit Diagnoses Not on filedocumented in this encounter Care Teams Epic Professional Relationship Specialty Start Date End Date August Garrett MD PCP - General 12/01/15 documented as of this encounter
--- OUTSIDE RECORDS SUMMARY | 2024-12-02 12:26 | XMS_ITS | Clinical Summary ---
Author Organization [facility] Address Formerly [facility], later [facility] [place] [address] Care Team Providers Care Acid Retort Operator Name Role Phone Unavailable Primary Care Provider Unavailabl e Social History Tobacco Use Types Packs/Day Years Used Date Smoking Tobacco: Never Assessed Sex and Gender Information Value Date Recorded Sex Assigned at Not on file Legal Sex Male 5:27 PM CDT Gender Identity Not on file Sexual Orientation Not on file Plan of Treatment Health Maintenance Due Date Last Done Comments Colorectal Cancer Screening Colonoscopy (10 Years) 1955 Hepatitis C 1973 DTaP, Tdap and Td Vaccines ( 1 - Tdap) 1974 Zoster Vaccines (1 of 2) 2005 Pneumococcal Vaccine: 65+ Ye ars (1 of 1 - PCV) 2020 COVID-19 Vaccine ( - 2023-2 5 season) 2024 Influenza Adult (#1) 2024 RSV Immunization or 60+ Years (1 - 1-dose 75+ series) 2030 Meningococcal B Vaccine Aged Out No l onger eligible based on patient's age to complete this topic Meningococcal Vaccine Aged Out No garcia mk eligible based on patient's age to complete this topic RSV Immunizations Under 20 Months Aged Out No longer eligible based on patient's age to complete this topic
--- OUTSIDE RECORDS SUMMARY | 2024-12-02 12:26 | XMS_ITS | Encounter Summary ---
Author Organization [facility] Address [address] [place] [address] Care Team Providers Care Workers' Compensation Magistrate Name Role Phone Brian Bautista MD Unavailable August Garrett MD Primary Care Provider [phone] August Garrett MD Primary Care Provider [phone] Encounter Details Date Type Department Care Team (Late Contact [facility]) Description 10/08/2023 Lab Requisition [facility] - DermPath Lab [address] [facility], [place] [address] Anju Lyle MD [address] [facility] [address] [place] [address] Social History Tobacco Use Types Packs/Day Years [...] Priority Date/Time Associated Diagnosis Comments DERMATOPATHOLOGY Routine 10/08/2023 8:28 AM BIOINFORMATICS SUPPORT SPECIALIST documented in this encounter Results * DERMATOPATHOLOGY (10/08/2023 8:28 AM BIOINFORMATICS SUPPORT SPECIALIST) Case Report Dermatopathology Report Case: [id number] Authorizing Provider: Anju Lyle MD Collected: 10/08/2023 08:28 AM Ordering Location: [facility] DermPath Lab Received: 10/09/2023 09:12 AM Pathologist: Yessica Figueroa MD Specimens: A) - Skin, central chest B) - Skin, right upper cheek C) - Skin, left sideburn 1:47 PM [facility] DERMATOPATHOLOGY [facility]ORATORY Final Diagnosis Specimen A. SKIN, central chest: BASAL CELL CARCINOMA, NODULAR TYPE (C44.519) Specimen B. SKIN, right upper cheek: BASAL CELL CARCINOMA, NODULAR TYPE (C44.319) Specimen C. SKIN, left sideburn: SEBORRHEIC KERATOSIS, INFLAMED (L82.0) 1:47 PM [facility] DERMATOPATHOLOGY [facility]ORAT[facility] Clinical History A-C: BCC 1:47 PM [facility] DERMATOPATHOLOGY [facility] Gross Description Specimen A: Received is one formalin filled container labeled with the patient's name and designated central chest. The specimen consists of a shave biopsy measuring 7x4x1 mm. Jar 0. Specimen B: Received is one formalin filled container labeled with the patient's name and designated right upper cheek. The specimen consists of a shave biopsy measuring 4x3x2 mm. Jar 0. Specimen C: Received is one formalin filled container labeled with the patient's name and designated left sideburn. The specimen consists of a shave biopsy measuring 8x6x1 mm. Jar 0. 1:47 PM [facility] DERMATOPATH[facility] Microscopic Description Specimen A. SKIN, central chest: Within the dermis there are aggregates of basaloid cells with a high nuclear to cytoplasmic ratio and peripheral palisading. Specimen B. SKIN, right upper cheek: Within the dermis there are aggregates of basaloid cells with a high nuclear to cytoplasmic ratio and peripheral palisading. Specimen C. SKIN, left sideburn: There is hyperkeratosis, parakeratosis, papillomatosis, and acanthosis of the epidermis. There is a lymphohistiocytic infiltrate within the papillary dermis that is focally lichenoid. 1:47 PM [facility] DERMATOPATH[facility]Y [facility]OR[facility] Disclaimer An external and internal positive and negative controls are appropriate for the histochemical, immunohistochemical and immunofluorescence stain(s) in this case (if any), except where stated explicitly. The performance characteristics of the stain(s) cited in this report were developed and its performance characteristic determined by the Dermatopathology Laboratory at [facility], directed by Dr. Hunter Correa. These tests need not be, and therefore are not, approved by the [place] Food and Drug Administration. The tests are used for clinical purposes. Billing Codes Specimen Charges Stain Charges 32684 36456 16215 1 1 1 4 1:47 PM BIOINFORMATICS SUPPORT SPECIALIST DERMATOPATHOLOGY LABORATORY Embedded Images 4 1:47 PM BIOINFORMATICS SUPPORT SPECIALIST DERMATOPATHOLOGY LABORATORY Pathology/Cytology TISSUE SPECIMEN FROM SKIN / Unknown 10/08/2023 8:28 AM BIOINFORMATICS SUPPORT SPECIALIST 10/09/2023 9:12 AM BIOINFORMATICS SUPPORT SPECIALIST Miscellaneous samples (specimen) TISSUE SPECIMEN FROM SKIN / Unknown 10/08/2023 8:28 AM BIOINFORMATICS SUPPORT SPECIALIST 10/09/2023 9:12 AM BIOINFORMATICS SUPPORT SPECIALIST Miscellaneous samples (specimen) TISSUE SPECIMEN FROM SKIN / Unknown 10/08/2023 8:28 AM BIOINFORMATICS SUPPORT SPECIALIST 10/09/2023 9:12 AM BIOINFORMATICS SUPPORT SPECIALIST Anju Lyle MD LAB - PATHOLOGY/CYT OLOGY ORDERABLES DERMATOPATHOLOGY LABORATORY [facility] - Department of Dermatology [facility] Medicine [address] [place] [address], [address] [phone] documented in this encounter Visit Diagnoses Not on filedocumented in this encounter Care Teams Workers' Compensation Magistrate Relationship Specialty Start Date End Date August Garrett MD [address] [place] [address] PCP - General Family Medicine 08/10/16 04/03/24 August Garrett MD [address] [place] [address] PCP - General Family Medicine 04/04/24 [place] [address] [place] [address] Orthopedic Surgery 08/10/16 documented as of this encounter
--- OUTSIDE RECORDS SUMMARY | 2024-12-02 12:26 | XMS_ITS | Encounter Summary ---
Author Organization [facility] Address [address] [place] [address] Care Team Providers Care Tare Man Name Role Phone Brian Bautista MD Unavailable [phone] August Garrett MD Primary Care Provider [phone] August Garrett MD Primary Care Provider [phone] Encounter Details Date Type Department Care Team (Late st Contact Info) Description 10/01/2019 Lab Requisition [facility] DermPath Lab [address] [place] [address] [phone] Anju Lyle MD [address] [facility] 3 DE[place] [address] Social History Tobacco Use Types Packs/Day Years [...] Priority Date/Time Associated Diagnosis Comments DERMATOPATHOLOGY Routine 09/30/2019 12:0 0 AM EDGER LINER documented in this encounter Results * DERMATOPATHOLOGY (09/30/2019 12:00 AM EDGER LINER) Case Report Dermatopathology Report Case: [id number] Authorizing Provider: Anju Lyle MD Collected: 09/30/2019 12:00 AM Ordering Location: [facility] DermPath Lab Received: 10/01/2019 08:10 AM Pathologist: Tom Correa MD Specimen: Skin, left ant shoulder 0 4:12 PM EDGER LINER DERMATOPATHOLOGY LABORATORY Amended Report Changed site from left ant shoulder to right ant shoulder. 0 4:12 PM [facility] DERMATOPATHOLOGY LABORATORY Final Diagnosis Specimen A. SKIN, right ant shoulder: DERMAL SCAR RESIDUAL BASAL CELL CARCINOMA NOT IDENTIFIED (L90.5) 0 4:12 PM [facility] DERMATOPATHOLOGY LABORATORY Amendment electronically signed by Tom Correa MD on 10/06/2019 at 4:12 PM Clinical History R/O BCC, biopsy proven. 0 4:12 PM [facility] DERMATOPATHOLOGY LABORATORY Gross Description Specimen A: Received is one formalin filled container labeled with the patient's name and designated right ant shoulder. The specimen consists of a non-oriented ellipse of skin measuring [id number]. The epidermal surface consists of a centrally located 5x5mm previous biopsy site. The margin is inked green. The 12 o'clock and 6 o'clock tips are submitted in cassette 1. The remainder of the ellipse is serially sectioned and submitted in cassettes 2-4. Jar 0. 0 4:12 PM [facility] DERMATOPATHOLOGY LABORATORY Microscopic Description Specimen A. SKIN, right ant shoulder: There are fibroblasts and collagen bundles oriented parallel to the skin surface. There are elongated blood vessels, some of which are oriented perpendicular to the skin surface. No basal cell carcinoma is identified. 0 4:12 PM [facility] DERMATOPATHOLOGY LABORATORY Disclaimer An external and internal positive and negative controls are appropriate for the histochemical, immunohistochemical and immunofluorescence stain(s) in this case (if any), except where stated explicitly. The performance characteristics of the stain(s) cited in this report were developed and its performance characteristic determined by the Dermatopathology Laboratory at [facility], directed by Dr. Hunter Correa. These tests need not be, and therefore are not, approved by the [place] Food and Drug Administration. The tests are used for clinical purposes. Billing Codes Specimen Charges Stain Charges 67794 1 0 4:12 PM [facility] DERMATOPATHOLOGY LABORATORY Embedded Images 0 4:12 PM [facility] DERMATOPATHOLOGY LABORATORY Pathology/Cytolog y TISSUE SPECIMEN FROM SKIN / Unknown 09/30/2019 10/01/2019 8:10 AM EDGER LINER Anju Lyle MD LAB - PATHOLOGY/CYT OLOGY ORDERABLES DERMATOPATHOLOGY LABORATORY [facility] - Department of Dermatology [address], [address] Lab [address] [phone] documented in this encounter Visit Diagnoses Not on filedocumented in this encounter Care Teams Tare Man Relationship Specialty Start Date End Date August Garrett MD [address] [place] [phone] PCP - General Family Medicine 08/10/16 04/03/24 August Garrett MD [address] [place] [address] PCP - General Family Medicine 04/04/24 [place] [address] [address] Orthopedic Surgery 08/10/16 documented as of this encounter
--- OUTSIDE RECORDS SUMMARY | 2024-12-02 12:26 | XMS_ITS | CONTINUITY OF CARE DOCUMENT ---
Author Name maxx lilly Address Unknown Organization [facility] Address [address] [facility] [address] [place] [address] Phone [phone] Care Team Providers Care Interface Developer Name Role Phone maxx lilly Unavailable Unavailable
--- OUTSIDE RECORDS SUMMARY | 2024-12-02 12:26 | XMS_ITS | Encounter Summary ---
Author Organization [facility] Address [address] [place] [address] Phone Care Team Providers Care Mold Tooling Technician Name Role Phone August Garrett MD Primary Care Provider [phone] Encounter Details Date Type Department Care Team (Latest Contact Info) Description 08/08/2023 Orders Only [facility] Scanning, Provider Social History Tobacco Use Types Packs/Day Years [...] on file Legal Sex Male 12:44 AM AIRPLANE DISPATCH CLERK Gender Identity Not on file Sexual Orientation Not on file documented as of this encounter Plan of Treatment Not on file documented as of this encounter Procedures Procedure Name Priority Date/Time Associated Diagnosis Comments SCAN - RADIOLOGY/IMAGING 08/08/2023 8:02 AM AIRPLANE DISPATCH CLERK documented in this encounter Results * SCAN - RADIOLOGY/IMAGING (08/08/2023 8:02 AM AIRPLANE DISPATCH CLERK) Anatomical Region Laterality Modality Other us Provider Scanning Final Result documented in this encounter Visit Diagnoses Not on filedocumented in this encounter Care Teams Mold Tooling Technician Relationship Specialty Start Date End Date August Garrett MD PCP - General 12/01/15 documented as of this encounter
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
--- OUTSIDE RECORDS SUMMARY | 2024-12-02 12:26 | XMS_ITS | Clinical Summary ---
Author Organization [facility] Address [address] [place] [address] Care Team Providers Care Construction Analyst Name Role Phone August Garrett MD Primary Care Provider [phone] Allergies No known active allergies Medications citalopram [...] (05/24/2022): Added automatically from request for surgery [id number] Localized, primary osteoarthritis of hand 2020 Pain in joint of right shoulder 01/03/2021 Overview (01/03/2021): Added automatically from request for surgery [id number] Biceps tendinitis of right upper extremity 01/03 Overview (01/03/2021): Added automatically from request for surgery [id number] Hyperlipidemia LDL goal <100 10/10/2019 KAREEN on [...] rotator cuff 05/02/2011 Rotator cuff tendonitis 05/02/2011 Encounters Date Type Department Care Team Description 10/06/2024 7:58 AM HOME ECONOMICS EXPERT - 10/06/2024 11:59 PM HOME ECONOMICS EXPERT Hospital Encounter [facility] [address] [place] [id number] Status post total shoulder arthroplasty, left Discharge Disposition: Discharge to home or self care 10/06/2024 7:50 AM HOME ECONOMICS EXPERT Office Visit [facility] Orthopaedic Surgery [address] [place] [address] 2nd Floor [address] [place] [id number] Miguel A Carbone MD Status post total shoulder arthroplasty, left (Primary Dx) from Last 3 Months Immunizations Immunization Administration Dates Next Due Influenza, Trivalent, IM (MDV) 08/15/2014,2011 Influenza, Trivalent, Preservative Free, Intramu scular 07/10/2017 Influenza, Unspecified 06/12/2022 ZOSTER Recombinant 10/07/2018,06/17/2018 Surgical History Surgery Date Site/Laterality Comments FLUORO GUIDED INJECTION SHOULDER LEFT 08/20/2018 Lef t REPLACEMENT TOTAL KNEE Right FLUORO GUIDED INJECTION SHOU LDER RIGHT 06/08/2020 Right KNEE ARTHROSCOPY Bilateral SKIN CANCER EXCISION Right shoulder FLUORO GUIDED INJECTION SHOULDER LEFT 03/21/2021 Lef t FLUORO GUIDED INJECTION SHOULDER LEFT 10/12/2021 Lef t SHOULDER ARTHROSCOPY 03/03/2021 - 04/02/2021 Right Medical History Medical History Date Comments Depression Depression Gastroesophageal reflux disease GERD Hyperlipidemia Acid indigestion well controlled Sleep apnea CPAP Arthritis PVC (premature ventricular contraction) & PAC PRN decreased after reduced caffine Family History Medical History Relation Name Comments Cancer Father Heart failure Mother Cancer Sister Anesthesia problems Neg Hx Relation Name Status Comments Brother Alive Father (Age 69) Mother (Age 98) Sister (Age 72) Social History Tobacco Use Types Packs/Day Years [...] on file Legal Sex Male 12:44 AM HOME ECONOMICS EXPERT Gender Identity Not on file Sexual Orientation Not on file Obstetrics History Last Filed Vital Signs Vital Sign Reading Time Taken Comments Blood Pressure 120/70 11/19/2023 7:56 AM CDT Pulse 74 11/19/2023 7:56 AM CDT Temperature 36.3 C (97.4 F) 08/09/2022 8:06 AM HOME ECONOMICS EXPERT Respiratory Rate 15 08/09/2022 8:06 AM HOME ECONOMICS EXPERT Oxygen Saturation 95% 11/19/2023 7:56 AM CDT Inhaled Oxygen Concentration - - Weight 113.4 kg (250 lb) 10/06/2024 7:50 AM HOME ECONOMICS EXPERT Height 190.5 cm (6' 3 ) 10/06/2024 7:50 AM HOME ECONOMICS EXPERT Body Mass Index 31.25 10/06/2024 7:50 AM HOME ECONOMICS EXPERT Plan of Treatment Health Maintenance Due Date Last Done Comments Colon Cancer Screening-Colonoscopy 1955 Depression Screening 1955 Hepatitis C Screening 1955 Prostate Cancer Screening-PSA 1955 DTaP/Tdap/Td Vaccine (1 - Tdap) 1966 Hepatitis B Screening 1973 Pneumococcal vaccine 65+ (1 of 1 - PCV) 2005 Well Visit 65+ 2020 Fall Risk Assessment 08/09/2023 08/09/2022 Influenza Vaccine (Season Ended) 2025 06/12/2022, 07/10/2017, 08/15/2014, Additional history exists Zoster Vaccine Completed 10/07/2018, 06/17/2018 Medical Devices Implanted Type Area District Sales Manager Device Identifier Shelf Expiration Date Model / Serial / Lot Rt Knee Knee Ar[employer]rex [employer] Ar-2324 Bcm Swivelock 4.75mm 24.5mm Self Punch Vent Shoulder [place] Suture - [id number] Implanted:Qty: 1 on 03/03/2021 by Jayy Long MD at [facility] [place] Right: Shoulder [employer] Inc 12/01/2024 [id number] / / [id number] Ar[employer] Ar-3670 Set Implant Arthrex Fibertak Biceps Sterile Latex Free - [id number] Implanted:Qty: 1 on 03/03/2021 by Jayy Long MD at [facility] [place] Right: Shoulder [employer] 06/02/2025 [id number]-[id number] / / [id number] [employer] Simplex P Radiopaque Full Dose Cement Bone Sterile 6191-1-010 - [id number] Implanted:Qty: 1 on 08/08/2022 by Jayy Long MD at [facility] [employer] 12/31/2024 6191-1-010 / / [id number] [employer] [place] 2 Peg Monoblock Shoulder 4 Component Glenoid Sterile [id number] - [id number] Implanted:Qty: 1 on 08/08/2022 by Jayy Long MD at [facility] [employer] 01/01/2028 [id number] / / [id number] [employer] Humeral [place] Shoulder Sidus [id number] - [id number] Implanted:Qty: 1 on 08/08/2022 by Jayy Long MD at [facility] Left: Acromial Process [employer] 2031 [id number] / / [id number] [employer] Sidus Od48 Mm H17 Mm Stem Free Shoulder Head Humeral Sterile Latex Free [id number] - [id number] Implanted:Qty: 1 on 08/08/2022 by Jayy Long MD at [facility] Left: Shoulder [employer] 09/22/2031 [id number] / / [id number] Procedures Procedure Name Priority Date/Time Associated Diagnosis Comments XR SHOULDER LEFT 2 OR MORE VIEWS Schedule Routine, Read Routine (OP Routine) 10/06/2024 8:03 AM HOME ECONOMICS EXPERT Status post total shoulder arthroplasty, left from Last 3 Months Results * XR Shoulder Left 2+ View (10/06/2024 8:03 AM HOME ECONOMICS EXPERT) Anatomical Region Laterality Modality Upper Extremities, Shoulder Left Comp uted Radiography 10/06/2024 8:12 AM HOME ECONOMICS EXPERT Impressions 10/06/2024 8:12 AM HOME ECONOMICS EXPERT Unchanged total left shoulder arthroplasty in near anatomic position. Electronically signed by: Miguel A Garcia MD Narrative 10/06/2024 8:12 AM HOME ECONOMICS EXPERT EXAMINATION: XR SHOULDER LEFT 2 OR MORE [...] Final Result from Last 3 Months Insurance [facility] Advance Directives For more information, please contact: [phone] * Full Code (Latest Code Status on File) Date Activated Date Inactivated Comments 08/08/2022 1:46 PM 08/09/2022 3:11 PM Care Teams Construction Analyst Relationship Specialty Start Date End Date August Garrett MD [facility] - General 12/01/15
--- OUTSIDE RECORDS SUMMARY | 2024-12-02 12:26 | XMS_ITS | Clinical Summary ---
Author Organization [facility] Address [address] [place] [address] Care Team Providers Care Software Support Engineer Name Role Phone Brian Bautista MD Unavailable [phone] August Garrett MD Primary Care Provider [phone] Source Comments [facility],non-owned Affiliates and Associated Physician Practices is amultiple site organization consisting of ambulatory clinics and hospital sitesin [place], [place], [place] and [place]. This disclosure is being madepursuant to the Care Everywhere program and may not contain all information available regarding this patient. Last updated 18.[facility] Allergies No known active allergies Medications * Be aware that medications may not be up to date on this document. Alwaysverify current medications with the patient. Medication Sig Dispensed Refills Start Date End Date Status citalopram (CELEXA) 40 MG tablet Take 40 mg by mouth once daily 05/22/2016 Active raNITIdine (ZANTAC) 300 MG tablet Take 300 mg by mouth once daily Active atorvastatin (LIPITOR) 40 MG tablet Take 40 mg by mouth at bedtime Active aspirin (ASPIRIN) 81 MG tablet Take 81 mg by mouth once daily Active multivitamin daily (THERAGRAN) tablet Take 1 Tab by mouth daily with food Active Social History Tobacco Use Types Packs/Day Years Used Date Smoking Tobacco: Never Tobacco Cessation:Counseling Given: Not Answered Alcohol Use Standard Drinks/Week Comments Yes 0 (1 standard drink = 0.6 oz pur e alcohol) social Sex and Gender Information Value Date Recorded Sex Assigned at Not on file Gender Identity Not on file Sexual Orientation Not on file Last Filed Vital Signs Vital Sign Reading Time Taken Comments Blood Pressure - - Pulse - - Temperature - - Respiratory Rate - - Oxygen Saturation - - Inhaled Oxygen Concentration - - Weight 111.1 kg (245 lb) 05/16/2024 2:49 PM CDT Height 190.5 cm (6' 3 ) 05/16/2024 2:49 PM CDT Body Mass Index 30.62 05/16/2024 2:49 PM CDT Plan of Treatment Health Maintenance Due Date Last Done Comments COLOGUARD (AGES 45-75) - COLON CA SCREENING 1955 COLON MONITORING 1955 COLONOSCOPY - COLON CA SCREENING 1955 CT COLONOGRAPHY - COLON CA SCREENING 1955 Colorectal Cancer Screening 1955 FIT - COLON CA SCREENING 1955 FLEX SIG - COLON CA SCREENING 1955 MEDICARE AWV 12 MONTHS 1955 HEPATITIS C SCREENING 10/13/1973 DTAP/TDAP/TD VACCINES (1 - Tdap) 1974 PNEUMOCOCCAL VACCINE 50+ (1 of 1 - PCV) 2005 ZOSTER VACCINE (1 of 2) 2005 COVID-19 VACCINE (1 - season) 2024 INFLUENZA VACCINE (#1) 2024 2, 07/10/2017, 08/15/2014, Additional history exists SCREENING FOR DIABETES 05/16/2024 DEPRESSION SCREENING 09/03/2024 Respiratory Syncytial Virus (RSV) Vaccine Pt: or over 60 yrs (1 - 1-dose 75+ series) 2030 HEPATITIS B VACCINE Aged Out No longe r eligible based on patient's age to complete this topic HIB VACCINE Aged Out No longer eligi ble based on patient's age to complete this topic HPV VACCINE Aged Out No longer eligi ble based on patient's age to complete this topic MENINGOCOCCAL (Group B) VACCINE SHARED DECISION-MAKING Aged Out No longer eligible based on patient's age to complete this topic MENINGOCOCCAL GROUPS A/C/Y/W VACCINE Aged Out No longer eligible based on patient's age to complete this topic Care Teams Software Support Engineer Relationship Specialty Start Date End Date August Garrett MD [address] [place] [address] PCP - General Family Medicine 04/04/24 [place] [address] [address] Orthopedic Surgery 08/10/16
== END 2024-12-02 11:08 | disposition home or self-care (01) ==
PROVIDERS: PCP Family Medicine; Visit Provider Physician Assistant
DX: R91.1 Solitary pulmonary nodule (principal)
CPT/HCPCS: 71250

== ENCOUNTER 2024-12-22 10:40 | Outpatient (CLI) | payer MEDICARE, SELFPAY ==
--- NOTE | ~2024-12-22 | XR_ITS ---
Right wrist Technique: PA, oblique, lateral, and ulnar deviation views were obtained. Clinical History: Pain Findings: No acute fracture or dislocation is seen. Osseous alignment is anatomic. 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 Soft tissues are unremarkable. Impression: Degenerative changes, as detailed above. Reviewed, dictated and finalized at location M. Impression: Degenerative changes, as detailed above.
--- OUTSIDE RECORDS SUMMARY | 2024-12-22 12:16 | XMS_ITS | Encounter Summary ---
Author Organization [facility] Address [address] [place] [address] Phone Care Team Providers Care Security Operations Manager Name Role Phone August Garrett MD Primary Care Provider [phone] Encounter Details Date Type Department Care Team [...] on file Legal Sex Male 12:44 AM INTERNAL COMBUSTION ENGINE INSPECTOR Gender Identity Not on file Sexual Orientation Not on file documented as of this encounter Plan of Treatment Not on file documented as of this encounter Procedures Procedure Name Priority Date/Time Associated Diagnosis Comments SCAN - RADIOLOGY/IMAGING 08/08/2023 8:02 AM INTERNAL COMBUSTION ENGINE INSPECTOR documented in this encounter Results * SCAN - RADIOLOGY/IMAGING (08/08/2023 8:02 AM INTERNAL COMBUSTION ENGINE INSPECTOR) Anatomical Region Laterality Modality Other us Provider Scanning Final Result documented in this encounter Visit Diagnoses Not on filedocumented in this encounter Care Teams Security Operations Manager Relationship Specialty Start Date End Date August Garrett MD PCP - General 12/01/15 documented as of this encounter
--- OUTSIDE RECORDS SUMMARY | 2024-12-22 12:16 | XMS_ITS | Encounter Summary ---
Author Organization [facility] Address [address] [place] [address] Care Team Providers Care Cake Winder Name Role Phone Brian Bautista MD Unavailable [phone] August Garrett MD Primary Care Provider [phone] August Garrett MD Primary Care Provider [phone] Encounter Details Date Type Department Care Team (Late st Contact Info) Description 07/04/2019 Lab Requisition [facility] DermPath Lab [address] [place] [address] Anju Lyle MD [address] [facility] [address] [place] [address] Social History Tobacco Use Types Packs/Day Years Used Date Smoking Tobacco: Never Alcohol Use Standard Drinks/Week Comments Yes 0 (1 standard drink = 0.6 oz pur e alcohol) Sex and Gender Information Value Date Recorded Sex Assigned at Not on file Legal Sex Male 5:01 AM GREASE REFINING SUPERVISOR Gender Identity Not on file Sexual Orientation Not on file documented as of this encounter Plan of Treatment Not on file documented as of this encounter Procedures Procedure Name Priority Date/Time Associated Diagnosis Comments DERMATOPATH TECHNICAL REPORT Routine 07/04/2019 12:00 AM CDT documented in this encounter Results * DERMATOPATH TECHNICAL REPORT (07/04/2019 12:00 AM CDT) Case Report Dermatopathology Report Case: [id number] Authorizing Provider: Anju Lyle MD Collected: 07/04/2019 12:00 AM Ordering Location: [facility] Derm[facility] Lab Received: 07/04/2019 11:45 AM Pathologist: Tom Correa MD Specimen: Skin, right anterior shoulder 12:57 PM CDT DERMATOPATHOLOGY LABORATORY Clinical History R/O BCC, irritated. 12:57 PM CDT DERMATOPATHOLOGY LABORATORY Gross Description Specimen A: Received is one formalin filled container labeled with the patient's name and designated right anterior shoulder. The specimen consists of a shave measuring [id number]. Jar 0. [facility] Dermatopathology Laboratory performed the technical component [...] characteristic determined by the Dermatopathology Laboratory at [facility], directed by Dr. Hunter Correa. These tests need not be, and therefore are not, approved by the [place] Food and Drug Administration. The tests are used for clinical purposes. 12:57 PM CDT DERMATOPATHOLOGY LABORATORY Pathology/Cytolog y TISSUE SPECIMEN FROM SKIN / Unknown 07/04/2019 07/04/2019 11:45 AM CDT Anju Lyle MD LAB - PATHOLOGY/CYTOLOGY OR DERABLES Final Result DERMATOPATHOLOGY LABORATORY [facility] - Department of Dermatology [facility] [facility], 5th [place] [address], [facility] [phone] documented in this encounter Visit Diagnoses Not on filedocumented in this encounter Care Teams Cake Winder Relationship Specialty Start Date End Date August Garrett MD [address] [place] [phone] PCP - General Family Medicine 08/10/16 04/03/24 August Garrett MD [address] [place] [phone] PCP - General Family Medicine 04/04/24 [place] [address] [address] Orthopedic Surgery 08/10/16 documented as of this encounter
--- OUTSIDE RECORDS SUMMARY | 2024-12-22 12:16 | XMS_ITS | Referral Summary ---
Author Organization [facility] Address [address] [place] [address] Care Team Providers Care Flowers Salesperson Name Role Phone August Garrett MD Primary Care Provider [phone] Encounters Date Type Department Care Team Description 12/02/2024 2:45 PM CDT Office Visit [facility] Cardiology [address] [place] [address] Yusuf Benson MD PVC (premature ventricular contraction) (Primary Dx); PAT (paroxysmal atrial tachycardia); PAC (premature atrial contraction); Hyperlipidemia LDL goal <100; KAREEN on CPAP; Numbness of right hand; LVH (left ventricular hypertrophy) 10/06/2024 7:58 AM CNA GNA - 10/06/2024 11:59 PM CNA GNA Hospital Encounter [facility] Radiology at the [facility] [address] [place] [address] Status post total shoulder arthroplasty, left Discharge Disposition: Discharge to home or self care 10/06/2024 7:50 AM CNA GNA Office Visit [facility] Orthopaedic Surgery [address] 2[address] Floor [address] [place] [address] Miguel A Carbone MD Status post total [...] Active Problems Problem Noted Date Diagnosed Date Numbness of right hand 12/02/2024 LVH (left ventricular hypertrophy) 12/02/2024 Glenohumeral arthritis, left 08/08/2022 Anxiety 07/25/2022 Shoulder arthritis 05/24/2022 Overview (05/24/2022): Added automatically from request for surgery [id number] Localized, primary osteoarthritis of hand 2020 Pain in joint of right shoulder 01/03/2021 Overview (01/03/2021): Added automatically from request for surgery [id number] Biceps tendinitis of right upper extremity 01/03 Overview (01/03/2021): Added automatically from request for surgery [id number] Hyperlipidemia LDL goal <100 10/10/2019 KAREEN on [...] on file Legal Sex Male 12:44 AM CNA GNA Gender Identity Not on file Sexual Orientation Not on file Last Filed Vital Signs Vital Sign Reading Time Taken Comments Blood Pressure 120/74 12/02/2024 3:04 PM CDT Pulse 90 12/02/2024 3:04 PM CDT Temperature 36.3 C (97.4 F) 08/09/2022 8:06 AM CNA GNA Respiratory Rate 15 08/09/2022 8:06 AM CNA GNA Oxygen Saturation 92% 12/02/2024 3:04 PM CDT Inhaled Oxygen Concentration - - Weight 113.4 kg (250 lb) 12/02/2024 3:04 PM CDT Height 190.5 cm (6' 3 ) 12/02/2024 3:04 PM CDT Body Mass Index 31.25 12/02/2024 3:04 PM CDT Plan of Treatment Not on file Medical Devices Implanted Type Area Tennis Professional Device Identifier Shelf Expiration Date Model / Serial / Lot Rt Knee Knee [employer] Ar-2324 Bcm Swivelock 4.75mm 24.5mm Self Punch Vent Shoulder [place] Suture - [id number] Implanted:Qty: 1 on 03/03/2021 by Jayy Long MD at [facility] [place] Right: Shoulder [employer] 12/01/2024 AR-2324BCM / / [id number] [employer] Ar-3670 Set Implant Ar[employer]rex Fibertak Biceps Sterile Latex Free - [id number] Implanted:Qty: 1 on 03/03/2021 by Jayy Long MD at [facility] Right: Shoulder [employer] 06/02/2025 AR-3670 / / [id number] [employer] Simplex P Radiopaque Full Dose Cement Bone Sterile 6191-1-010 - [id number] Implanted:Qty: 1 on 08/08/2022 by Jayy Long MD at [facility] 12/31/2024 6191-1-010 / / [id number] [employer] [place] 2 Peg Monoblock Shoulder 4 Component Glenoid Sterile [id number] - [id number] Implanted:Qty: 1 on 08/08/2022 by Jayy Long MD at [facility] [employer] 01/01/2028 [id number] / / [id number] [employer] Humeral [place] Shoulder Sidus [id number] - [id number] Implanted:Qty: 1 on 08/08/2022 by Jayy Long MD at [facility] Left: Acromial Process [employer] 2031 [id number] / / [id number] [employer] Sidus Od48 Mm H17 Mm Stem Free Shoulder Head Humeral Sterile Latex Free [id number] - [id number] Implanted:Qty: 1 on 08/08/2022 by Jayy Long MD at [facility] Left: Shoulder [employer] 09/22/2031 [id number] / / [id number] Procedures Procedure Name Priority Date/Time Associated Diagnosis Comments POCT LIPID PANEL Routine 12/02/2024 3:06 PM CDT Hyperlipidemia LDL goal <100 XR SHOULDER LEFT 2 OR MORE VIEWS Schedule Routine, Read Routine (OP Routine) 10/06/2024 8:03 AM CNA GNA Status post total shoulder arthroplasty, left from Last 3 Months Results * POCT lipid panel (12/02/2024 3:06 PM CDT) Cholesterol, POC 164 mg/dL HDL, POC 37 mg/dL Triglycerides, POC 312 mg/dL LDL Cholesterol POC 65 mg/dL Chol/HDL Ratio, POC 1.8 Non-HDL Cholesterol, POC 127 mg/dL Cholesterol Total, POC 164 mg/dL Capillary blood 12/02/2024 3 :06 PM CDT us Yusuf Benson MD POINT OF CARE TEST ORDERA BLES Final Result * XR Shoulder Left 2+ View (10/06/2024 8:03 AM CNA GNA) Anatomical Region Laterality Modality Upper Extremities, Shoulder Left Comp uted Radiography 10/06/2024 8:12 AM CNA GNA Impressions 10/06/2024 8:12 AM CNA GNA Unchanged total left shoulder arthroplasty in near anatomic position. Electronically signed by: Miguel A Garcia MD Narrative 10/06/2024 8:12 AM CNA GNA EXAMINATION: XR SHOULDER LEFT 2 OR MORE [...] Result from Last 3 Months Insurance MEDICARE [facility] MEDICARE [facility] MEDICARE [facility] Advance Directives For more information, please contact: [phone] * Full Code (Latest Code Status on File) Date Activated Date Inactivated Comments 08/08/2022 1:46 PM 08/09/2022 3:11 PM Care Teams Flowers Salesperson Relationship Specialty Start Date End Date August Garrett MD PCP - General 12/01/15
--- OUTSIDE RECORDS SUMMARY | 2024-12-22 12:16 | XMS_ITS | Encounter Summary ---
Author Organization [facility] Address [address] [place] [address] Care Team Providers Care Info Print Press Operator Name Role Phone Brian Bautista MD Unavailable [phone] August Garrett MD Primary Care Provider [phone] August Garrett MD Primary Care Provider [phone] Encounter Details Date Type Department Care Team (Late st Contact [facility]) Description 08/12/2020 Lab Requisition [facility] Lab [address] [facility], [place] [address] Anju Lyle MD [address] [facility] 3 [place] [address] Social History Tobacco Use Types Packs/Day Years Used Date Smoking Tobacco: Never Alcohol Use Standard Drinks/Week Comments Yes 0 (1 standard drink = 0.6 oz pur e alcohol) Sex and Gender Information Value Date Recorded Sex Assigned at Not on file Legal Sex Male 5:01 AM DATA ENTRY CLERK Gender Identity Not on file Sexual Orientation Not on file documented as of this encounter Plan of Treatment Not on file documented as of this encounter Procedures Procedure Name Priority Date/Time Associated Diagnosis Comments DERMATOPATHOLOGY Routine 08/12/2020 12:0 0 AM DATA ENTRY CLERK documented in this encounter Results * DERMATOPATHOLOGY (08/12/2020 12:00 AM DATA ENTRY CLERK) Case Report Dermatopathology Report Case: [id number] Authorizing Provider: Anju Lyle MD Collected: 08/12/2020 12:00 AM Ordering Location: [facility] Received: 08/12/2020 11:24 AM Pathologist: Tom Correa MD Specimen: Skin, right FH scalp 0 4:02 PM DATA ENTRY CLERK DERMATOPATHOLOGY LABORATORY Final Diagnosis Specimen A. SKIN, right FH scalp: ACTINIC KERATOSIS, LICHENOID (L57.0) POST-INFLAMMATORY PIGMENT ALTERATION (L81.9) 0 4:02 PM DATA ENTRY CLERK DERMATOPATHOLOGY LABORATORY Clinical History R/O pig BCC, irregular color. 0 4:02 PM DATA ENTRY CLERK DERMATOPATHOLOGY LABORATORY Gross Description Specimen A: Received is one formalin filled container labeled with the patient's name and designated right FH scalp. The specimen consists of a shave measuring [id number]. Jar 0. 0 4:02 PM DATA ENTRY CLERK DERMATOPATHOLOGY LABORATORY Microscopic Description Specimen A. SKIN, right FH scalp: There is focal parakeratosis. The lower half of the epidermis shows disorderly maturation of keratinocytes with nuclear pleomorphism. The dermis shows a band-like, chronic inflammatory infiltrate with occasional apoptotic keratinocytes and some basal vacuolar alteration. Sections show abundant melanin within melanophages around the superficial vascular plexus. 0 4:02 PM DATA ENTRY CLERK DERMATOPATHOLOGY LABORATORY Disclaimer An external and internal positive and negative controls are appropriate for the histochemical, immunohistochemical and immunofluorescence stain(s) in this case (if any), except where stated explicitly. The performance characteristics of the stain(s) cited in this report were developed and its performance characteristic determined by the Dermatopathology Laboratory at [facility], directed by Dr. Hunter Correa. These tests need not be, and therefore are not, approved by the [place] Food and Drug Administration. The tests are used for clinical purposes. Billing Codes Specimen Charges Stain Charges 38354 1 0 4:02 PM DATA ENTRY CLERK DERMATOPATHOLOGY LABORATORY Embedded Images 0 4:02 PM [facility] DERMATOPATHOLOGY LABORATORY Pathology/Cytolog y TISSUE SPECIMEN FROM SKIN / Unknown 08/12/2020 08/12/2020 11:24 AM DATA ENTRY CLERK Anju Lyle MD LAB - PATHOLOGY/CYTOLOGY OR DERABLES Final Result DERMATOPATHOLOGY LABORATORY [facility] - Department of Dermatology [facility] Medicine [address] [facility], 3rd Floor [address] [phone] documented in this encounter Visit Diagnoses Not on filedocumented in this encounter Care Teams Info Print Press Operator Relationship Specialty Start Date End Date Augsut Garrett MD [address] [place] [address] PCP - General Family Medicine 08/10/16 04/03/24 August Garrett MD [address] [place] [address] PCP - General Family Medicine 04/04/24 [place] [address] [address] Orthopedic Surgery 08/10/16 documented as of this encounter
--- OUTSIDE RECORDS SUMMARY | 2024-12-22 12:16 | XMS_ITS | Encounter Summary ---
Author Organization [facility] Healthcare Address [address] [place] [address] Care Team Providers Care Personal Health Coach Name Role Phone August Garrett MD Primary Care Provider [phone] Encounter Details Date Type Department Care Team (Late st Contact Info) Description 07/24/2022 Treatment [facility] PATHOLOGY [address] [facility] [address]rd [place] [address] Manish Dejesus MD [facility] [address] [facility] [phone] [place] [address] Social History Tobacco Use Types Packs/Day Years [...] on file Legal Sex Male 12:44 AM COUNTRY PRINTER Gender Identity Not on file Sexual Orientation [...] this patient. Contact Information: Please contact the [facility] Blood Bank with any questions. This report has been prepared by: Manish Dejesus MD Cosigned by Leslie Beebe MD PhD at 07/26/2022 4:21 PM COUNTRY PRINTER TRY PRINTER TRY PRINTER TRY PRINTER TRY PRINTER Associated attestation - Leslie Beebe MD PhD - 07/26/2022 4:21 PM COUNTRY PRINTER Attestation: I have personally reviewed the antibody result and agree with the interpretation contained in this written blood bank report. Leslie Bebee MD PhD documented in this encounter Plan of Treatment Not on file documented as of this encounter Visit Diagnoses Not on filedocumented in this encounter Care Teams Personal Health Coach Relationship Specialty Start Date End Date August Garrett MD PCP - General 12/01/15 documented as of this encounter
--- OUTSIDE RECORDS SUMMARY | 2024-12-22 12:16 | XMS_ITS | Clinical Summary ---
Author Organization [facility] Address [address] [place] [address] Care Team Providers Care Special Education Kindergarten Teacher Name Role Phone Brian Bautista MD Unavailable [phone] August Garrett MD Primary Care Provider [phone] Source Comments [facility],non-owned Affiliates and Associated Physician Practices is amultiple site organization consisting of ambulatory clinics and hospital sitesin [place], [place], [place] and [place]. This disclosure is being madepursuant to the Care Everywhere program and may not contain all information available regarding this patient. Last updated 18.[facility] Allergies No known active allergies Medications * Be aware that medications may not be up to date on this document. Alwaysverify current medications with the patient. 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 NURSE PRACTITIONER Gender Identity Not on file Sexual Orientation [...] 2005 COVID-19 VACCINE (1 - season) 2024 SCREENING FOR DIABETES 05/16/2024 DEPRESSION SCREENING 09/03/2024 INFLUENZA VACCINE (Season Ended) 2025 06/12/2022, 07/10/2017, 08/15/2014, Additional history exists Respiratory Syncytial Virus (RSV) Vaccine Pt: or [...] on patient's age to complete this topic [place] [id number] MEDICARE [facility] MEDICARE [facility] Care Teams Special Education Kindergarten Teacher Relationship Specialty Start Date End Date August Garrett MD [address] [place] [address] PCP - General Family Medicine 04/04/24 [place] [address] [place] [address] Orthopedic Surgery 08/10/16
--- OUTSIDE RECORDS SUMMARY | 2024-12-22 12:16 | XMS_ITS | Encounter Summary ---
Author Organization [facility] Address [address] [place] [address] Care Team Providers Care Alodize Machine Helper Name Role Phone Brian Bautista MD Unavailable [phone] August Garrett MD Primary Care Provider [phone] August Garrett MD Primary Care Provider [phone] Encounter Details Date Type Department Care Team (Late st Contact Info) Description 10/01/2019 Lab Requisition [facility] DermPath Lab [address] [facility] [place] [address] Anju Lyle MD [address] [facility] [address] [place] [address] Social History Tobacco Use Types Packs/Day Years Used Date Smoking Tobacco: Never Alcohol Use Standard Drinks/Week Comments Yes 0 (1 standard drink = 0.6 oz pur e alcohol) Sex and Gender Information Value Date Recorded Sex Assigned at Not on file Legal Sex Male 5:01 AM ENERGY SALES CONSULTANT Gender Identity Not on file Sexual Orientation Not on file documented as of this encounter Plan of Treatment Not on file documented as of this encounter Procedures Procedure Name Priority Date/Time Associated Diagnosis Comments DERMATOPATHOLOGY Routine 09/30/2019 12:0 0 AM ENERGY SALES CONSULTANT documented in this encounter Results * DERMATOPATHOLOGY (09/30/2019 12:00 AM ENERGY SALES CONSULTANT) Case Report Dermatopathology Report Case: [id number] Authorizing Provider: Anju Lyle MD Collected: 09/30/2019 12:00 AM Ordering Location: [facility]erm[facility] Lab Received: 10/01/2019 08:10 AM Pathologist: Tom Correa MD Specimen: Skin, left ant shoulder 0 4:12 PM [facility] DERMATOPATHOLOGY LABORATORY Amended Report Changed site from left ant shoulder to right ant shoulder. 0 4:12 PM [facility] DERMATOPATHOLOGY LABORATORY Final Diagnosis Specimen A. SKIN, right ant shoulder: DERMAL SCAR RESIDUAL BASAL CELL CARCINOMA NOT IDENTIFIED (L90.5) 0 4:12 PM [facility] DERMATOPATHOLOGY LABORATORY Amendment electronically signed by Tom Correa MD on 10/06/2019 at 4:12 PM Clinical History R/O BCC, biopsy proven. 0 4:12 PM [facility] DERMATOPATHOLOGY LABORATORY Gross Description Specimen A: Received is one formalin filled container labeled with the patient's name and designated right ant shoulder. The specimen consists of a non-oriented ellipse of skin measuring [id number]. The epidermal surface consists of a centrally located 5x5mm previous biopsy site. The margin is inked green. The 12 o'clock and 6 o'clock tips are submitted in cassette 1. The remainder of the ellipse is serially sectioned and submitted in cassettes 2-4. Jar 0. 0 4:12 PM [facility] DERMATOPATHOLOGY LABORATORY Microscopic Description Specimen A. SKIN, right ant shoulder: There are fibroblasts and collagen bundles oriented parallel to the skin surface. There are elongated blood vessels, some of which are oriented perpendicular to the skin surface. No basal cell carcinoma is identified. 0 4:12 PM [facility] DERMATOPATHOLOGY LABORATORY Disclaimer An external and internal positive and negative controls are appropriate for the histochemical, immunohistochemical and immunofluorescence stain(s) in this case (if any), except where stated explicitly. The performance characteristics of the stain(s) cited in this report were developed and its performance characteristic determined by the Dermatopathology Laboratory at [facility], directed by Dr. Hunter Correa. These tests need not be, and therefore are not, approved by the [place] Food and Drug Administration. The tests are used for clinical purposes. Billing Codes Specimen Charges Stain Charges 20044 1 0 4:12 PM [facility] DERMATOPATHOLOGY LABORATORY Embedded Images 0 4:12 PM ENERGY SALES CONSULTANT DERMATOPATHOLOGY LABORATORY Pathology/Cytolog y TISSUE SPECIMEN FROM SKIN / Unknown 09/30/2019 10/01/2019 8:10 AM ENERGY SALES CONSULTANT Anju Lyle MD LAB - PATHOLOGY/CYTOLOGY OR DERABLES Edited Result - Final DERMATOPATHOLOGY LABORATORY [facility] - Department of Dermatology [address] [place] [address] [address] [phone] documented in this encounter Visit Diagnoses Not on filedocumented in this encounter Care Teams Alodize Machine Helper Relationship Specialty Start Date End Date August Garrett MD [address] [place] [address] PCP - General Family Medicine 08/10/16 04/03/24 August Garrett MD [address] [place] [address] PCP - General Family Medicine 04/04/24 [place] [address] [address] [address] Orthopedic Surgery 08/10/16 documented as of this encounter
--- OUTSIDE RECORDS SUMMARY | 2024-12-22 12:16 | XMS_ITS | Clinical Summary ---
Author Organization [facility] Address [address] [facility] [place] [address] Care Team Providers Care Phosphatic Fertilizer Supervisor Name Role Phone August Garrett MD Primary Care Provider [phone] Allergies No known active allergies Medications citalopram [...] (05/24/2022): Added automatically from request for surgery [id number] Localized, primary osteoarthritis of hand 2020 Pain in joint of right shoulder 01/03/2021 Overview (01/03/2021): Added automatically from request for surgery [id number] Biceps tendinitis of right upper extremity 01/03 Overview (01/03/2021): Added automatically from request for surgery [id number] Hyperlipidemia LDL goal <100 10/10/2019 KAREEN on [...] Description 12/02/2024 2:45 PM CDT Office Visit [facility] Cardiology [address] [place] [address] Yusuf Benson MD PVC (premature ventricular contraction) (Primary Dx); PAT (paroxysmal atrial tachycardia); PAC (premature atrial contraction); Hyperlipidemia LDL goal <100; KAREEN on CPAP; Numbness of right hand; LVH (left ventricular hypertrophy) 10/06/2024 7:58 AM YARDAGE CONTROL CLERK - 10/06/2024 11:59 PM YARDAGE CONTROL CLERK Hospital Encounter [facility] [address] [place] [address] Status post total shoulder arthroplasty, left Discharge Disposition: Discharge to home or self care 10/06/2024 7:50 AM YARDAGE CONTROL CLERK Office Visit [facility] Orthopaedic Surgery [id number] [place] [address] 2nd Floor [address] [place] [phone] Miguel A Carbone MD Status post total [...] on file Legal Sex Male 12:44 AM YARDAGE CONTROL CLERK Gender Identity Not on file Sexual Orientation Not on file Obstetrics History Last Filed Vital Signs Vital Sign Reading Time Taken Comments Blood Pressure 120/74 12/02/2024 3:04 PM CDT Pulse 90 12/02/2024 3:04 PM CDT Temperature 36.3 C (97.4 F) 08/09/2022 8:06 AM YARDAGE CONTROL CLERK Respiratory Rate 15 08/09/2022 8:06 AM YARDAGE CONTROL CLERK Oxygen Saturation 92% 12/02/2024 3:04 PM CDT Inhaled Oxygen Concentration - - Weight 113.4 kg (250 lb) 12/02/2024 3:04 PM CDT Height 190.5 cm (6' 3 ) 12/02/2024 3:04 PM CDT Body Mass Index 31.25 12/02/2024 3:04 PM CDT Plan of Treatment Health Maintenance [...] 10/07/2018, 06/17/2018 Medical Devices Implanted Type Area Well Head Pumper Device Identifier Shelf Expiration Date Model / Serial / Lot Rt Knee Knee [employer] Ar-2324 Bcm Swivelock 4.75mm 24.5mm Self Punch Vent Shoulder [place] Suture - [id number] Implanted:Qty: 1 on 03/03/2021 by Jayy Long MD at [facility] Right: Shoulder [employer] 12/01/2024 [id number] / / [id number] [employer] Ar-3670 Set Implant Arthrex Fibertak Biceps Sterile Latex Free - [id number] Implanted:Qty: 1 on 03/03/2021 by Jayy Long MD at [facility] Right: Shoulder [employer] 06/02/2025 AR-3670 / / [id number] [employer] Simplex P Radiopaque Full Dose Cement Bone Sterile 6191-1-010 - [id number] Implanted:Qty: 1 on 08/08/2022 by Jayy Long MD at [facility] [employer] 12/31/2024 6191-1-010 / / [id number] [employer] [place] 2 Peg Monoblock Shoulder 4 Component Glenoid Sterile [id number] - [id number] Implanted:Qty: 1 on 08/08/2022 by Jayy Long MD at [facility] [employer] 01/01/2028 [id number] / / [id number] [employer] Humeral [place] Shoulder Sidus [id number] 0 [id number] - [id number] Implanted:Qty: 1 on 08/08/2022 by Jayy Long MD at [facility] Left: Acromial Process [employer] 2031 [id number] / / [id number] [employer] Sidus Od48 Mm H17 Mm Stem Free Shoulder Head Humeral Sterile Latex Free [id number] - [id number] Implanted:Qty: 1 on 08/08/2022 by Jayy Long MD at [facility] Left: Shoulder [employer] 09/22/2031 [id number] / / [id number] Procedures Procedure Name Priority Date/Time Associated Diagnosis Comments POCT LIPID PANEL Routine 12/02/2024 3:06 PM CDT Hyperlipidemia LDL goal <100 XR SHOULDER LEFT 2 OR MORE VIEWS Schedule Routine, Read Routine (OP Routine) 10/06/2024 8:03 AM YARDAGE CONTROL CLERK Status post total shoulder arthroplasty, left from Last 3 Months Results * POCT lipid panel (12/02/2024 3:06 PM CDT) Cholesterol, POC 164 mg/dL HDL, POC 37 mg/dL Triglycerides, POC 312 mg/dL LDL Cholesterol POC 65 mg/dL Chol/HDL Ratio, POC 1.8 Non-HDL Cholesterol, POC 127 mg/dL Cholesterol Total, POC 164 mg/dL Capillary blood 12/02/2024 3 :06 PM CDT Yusuf Benson MD POINT OF CARE TEST ORDERA BLES Final Result * XR Shoulder Left 2+ View (10/06/2024 8:03 AM YARDAGE CONTROL CLERK) Anatomical Region Laterality Modality Upper Extremities, Shoulder Left Comp uted Radiography 10/06/2024 8:12 AM YARDAGE CONTROL CLERK Impressions 10/06/2024 8:12 AM YARDAGE CONTROL CLERK Unchanged total left shoulder arthroplasty in near anatomic position. Electronically signed by: Miguel A Garcia MD Narrative 10/06/2024 8:12 AM YARDAGE CONTROL CLERK EXAMINATION: XR SHOULDER LEFT 2 OR MORE [...] Result from Last 3 Months Insurance MEDICARE [facility] MEDICARE [facility] MEDICARE [facility] Advance Directives For more information, please contact: [phone] * Full Code (Latest Code Status on File) Date Activated Date Inactivated Comments 08/08/2022 1:46 PM 08/09/2022 3:11 PM Care Teams Phosphatic Fertilizer Supervisor Relationship Specialty Start Date End Date August Garrett MD PCP - General 12/01/15
--- OUTSIDE RECORDS SUMMARY | 2024-12-22 12:16 | XMS_ITS | Encounter Summary ---
Author Organization [facility] Address [address] [facility] [place] [address] Care Team Providers Care Music Composition Teacher Name Role Phone Brian Bautista MD Unavailable [phone] August Garrett MD Primary Care Provider [phone] August Garrett MD Primary Care Provider [phone] Encounter Details Date Type Department Care Team (Late st Contact Info) Description 02/10/2020 Lab Requisition [facility] DermPath Lab [address] [facility] [place] [address] Anju Lyle MD [address] [facility] [address] [place] [address] Social History Tobacco Use Types Packs/Day Years Used Date Smoking Tobacco: Never Alcohol Use Standard Drinks/Week Comments Yes 0 (1 standard drink = 0.6 oz pur e alcohol) Sex and Gender Information Value Date Recorded Sex Assigned at Not on file Legal Sex Male 5:01 AM CREW DIRECTOR Gender Identity Not on file Sexual Orientation Not on file documented as of this encounter Plan of Treatment Not on file documented as of this encounter Procedures Procedure Name Priority Date/Time Associated Diagnosis Comments DERMATOPATHOLOGY Routine 02/10/2020 12:0 0 AM CDT documented in this encounter Results * DERMATOPATHOLOGY (02/10/2020 12:00 AM CDT) Case Report Dermatopathology Report Case: [id number] Authorizing Provider: Anju Lyle MD Collected: 02/10/2020 12:00 AM Ordering Location: [facility] DermPath Lab Received: 02/10/2020 11:22 AM [...] characteristic determined by the Dermatopathology Laboratory at [facility], directed by Dr. Hunter Correa. These tests need not be, and therefore are not, approved by the [place] Food and Drug Administration. The tests are used for clinical purposes. Billing Codes Specimen Charges Stain Charges 73411 1 0 1:52 PM CDT DERMATOPATHOLOGY LABORATORY Embedded Images 0 1:52 PM CDT DERMATOPATHOLOGY LABORATORY Pathology/Cytolog y TISSUE SPECIMEN FROM SKIN / Unknown 02/10/2020 02/10/2020 11:22 AM CDT us Anju Lyle MD LAB - PATHOLOGY/CYTOLOGY OR DERABLES Final Result DERMATOPATHOLOGY LABORATORY [facility] - Department of Dermatology [employer] [place]/[address] [phone] documented in this encounter Visit Diagnoses Not on filedocumented in this encounter Care Teams Music Composition Teacher Relationship Specialty Start Date End Date August Garrett MD [address] [place] [address] PCP - General Family Medicine 08/10/16 04/03/24 August Garrett MD [address] [place] [address] PCP - General Family Medicine 04/04/24 [place] [address] [address] Orthopedic Surgery 08/10/16 documented as of this encounter
--- OUTSIDE RECORDS SUMMARY | 2024-12-22 12:16 | XMS_ITS | Encounter Summary ---
Author Organization [facility] Address [address] [place] [address] Care Team Providers Care Manager Golf Name Role Phone Brian Bautista MD Unavailable August Garrett MD Primary Care Provider [phone] August Garrett MD Primary Care Provider [phone] Encounter Details Date Type Department Care Team (Late Contact [facility]) Description 10/08/2023 Lab Requisition [facility] - DermPath Lab [address] [facility] [place] [address] Anju Lyle MD [address] [facility] [address] [place] [address] Social History Tobacco Use Types Packs/Day Years Used Date Smoking Tobacco: Never Alcohol Use Standard Drinks/Week Comments Yes 0 (1 standard drink = 0.6 oz pur e alcohol) Sex and Gender Information Value Date Recorded Sex Assigned at Not on file Legal Sex Male 5:01 AM CLEARING TUB WORKER Gender Identity Not on file Sexual Orientation Not on file documented as of this encounter Plan of Treatment Not on file documented as of this encounter Procedures Procedure Name Priority Date/Time Associated Diagnosis Comments DERMATOPATHOLOGY Routine 10/08/2023 8:28 AM CLEARING TUB WORKER documented in this encounter Results * DERMATOPATHOLOGY (10/08/2023 8:28 AM CLEARING TUB WORKER) Case Report Dermatopathology Report Case: [id number] Authorizing Provider: Anju Lyle MD Collected: 10/08/2023 08:28 AM Ordering Location: [facility] DermPath Lab Received: 10/09/2023 09:12 AM Pathologist: Yessica Figueroa MD Specimens: A) - Skin, central chest B) - Skin, right upper cheek C) - Skin, left sideburn 1:47 PM [facility] DERMATOPATHOLOGY LABORATORY Final Diagnosis Specimen A. SKIN, central chest: BASAL CELL CARCINOMA, NODULAR TYPE (C44.519) Specimen B. SKIN, right upper cheek: BASAL CELL CARCINOMA, NODULAR TYPE (C44.319) Specimen C. SKIN, left sideburn: SEBORRHEIC KERATOSIS, INFLAMED (L82.0) 1:47 PM [facility] DERMATOPATHOLOGY LABORATORY Clinical History A-C: BCC 1:47 PM [facility] DERMATOPATHOLOGY LABORATORY Gross Description Specimen A: [...] measuring 8x6x1 mm. Jar 0. 1:47 PM [facility] DERMATOPATHOLOGY LABORATORY Microscopic Description Specimen A. [...] dermis that is focally lichenoid. 1:47 PM [facility] DERMATOPATHOLOGY LABORATORY Disclaimer An external and internal positive and negative controls are appropriate for the histochemical, immunohistochemical and immunofluorescence stain(s) in this case (if any), except where stated explicitly. The performance characteristics of the stain(s) cited in this report were developed and its performance characteristic determined by the Dermatopathology Laboratory at [facility], directed by Dr. Hunter Correa. These tests need not be, and therefore are not, approved by the [place] Food and Drug Administration. The tests are used for clinical purposes. Billing Codes Specimen Charges Stain Charges 77619 [id number] 45304 1 1 1 4 1:47 PM CLEARING TUB WORKER DERMATOPATHOLOGY LABORATORY Embedded Images 4 1:47 PM CLEARING TUB WORKER DERMATOPATHOLOGY LABORATORY Pathology/Cytology TISSUE SPECIMEN FROM SKIN / Unknown 10/08/2023 8:28 AM CLEARING TUB WORKER 10/09/2023 9:12 AM CLEARING TUB WORKER Miscellaneous samples (specimen) TISSUE SPECIMEN FROM SKIN / Unknown 10/08/2023 8:28 AM CLEARING TUB WORKER 10/09/2023 9:12 AM CLEARING TUB WORKER Miscellaneous samples (specimen) TISSUE SPECIMEN FROM SKIN / Unknown 10/08/2023 8:28 AM CLEARING TUB WORKER 10/09/2023 9:12 AM CLEARING TUB WORKER Anju Lyle MD LAB - PATHOLOGY/CYTOLOGY OR DERABLES Final Result DERMATOPATHOLOGY LABORATORY [facility] - Department of Dermatology [facility] Medicine [address] [place] [address], [address] [phone] documented in this encounter Visit Diagnoses Not on filedocumented in this encounter Care Teams Manager Golf Relationship Specialty Start Date End Date August Garrett MD [address] [place] [address] PCP - General Family Medicine 08/10/16 04/03/24 August Garrett MD [address] [place] [id number] PCP - General Family Medicine 04/04/24 [place] [address] [address] [address] Orthopedic Surgery 08/10/16 documented as of this encounter
--- OUTSIDE RECORDS SUMMARY | 2024-12-22 12:16 | XMS_ITS | Clinical Summary ---
Author Organization [facility] Address [facility] [place] [address] Care Team Providers Care Back Shoe Worker Name Role Phone Unavailable Primary Care Provider [...] Td Vaccines ( 1 - Tdap) 1974 Pneumococcal Vaccine: 50+ Ye ars (1 of 1 - PCV) 2005 Zoster Vaccines (1 of 2) 2005 COVID-19 Vaccine ( - 2023-2 5 season) 2024 RSV Immunization or 60+ Years (1 - 1-dose 75+ series) 2030 Meningococcal B Vaccine Aged Out No l onger eligible based on patient's age to complete this topic Meningococcal Vaccine Aged Out No gracia mk eligible based on patient's age to complete this topic RSV Immunizations Under 20 Months Aged Out No longer eligible based on patient's age to complete this topic
== END 2024-12-22 10:41 | disposition home or self-care (01) ==
PROVIDERS: PCP Family Medicine; Visit Provider Nurse Practitioner Family
DX: M19.031 Primary osteoarthritis, right wrist (principal)
CPT/HCPCS: 73110

== ENCOUNTER 2025-03-10 09:07 | Outpatient (CLI) | payer MEDICARE, SELFPAY ==
--- OUTSIDE RECORDS SUMMARY | 2025-03-10 09:15 | XMS_ITS | Encounter Summary ---
Author Organization [facility] Address [address] [place] [address] Care Team Providers Care Title Manager Name Role Phone August Garrett MD Primary Care Provider [phone] Encounter Details Date Type Department Care Team (Latest Contact Info) Description 01/08/2025 Results Follow-Up [facility] Cardiology [address] [facility] [address] [address] Yusuf Benson MD [address] [facility] [address] [place] [address] [place], [place] [id number] Transthoracic Echo (TTE) Complete W Doppler/CF Social History Tobacco Use Types Packs/Day Years [...] on file Legal Sex Male 12:44 AM CHART CHANGER Gender Identity Not on file Sexual Orientation Not on file documented as of this encounter Plan of Treatment Not on file documented as of this encounter Visit Diagnoses Not on filedocumented in this encounter Care Teams Title Manager Relationship Specialty Start Date End Date August Garrett MD PCP - General 12/01/15 documented as of this encounter
--- OUTSIDE RECORDS SUMMARY | 2025-03-10 09:15 | XMS_ITS | Clinical Summary ---
Author Organization [facility] Address [address] [place] [address] Care Team Providers Care Consumer Sales Representative Name Role Phone Brian Bautista MD Unavailable [phone] August Garrett MD Primary Care Provider [phone] Source Comments [facility],non-owned Affiliates and Associated Physician Practices is amultiple site organization consisting of ambulatory clinics and hospital sitesin [place], [place], [place] and [place]. This disclosure is being madepursuant to the Care Everywhere program and may not contain all information available regarding this patient. Last updated 18.[facility] Allergies No known active allergies Medications * [...] on file Legal Sex Male 5:01 AM SALES OPERATIONS ANALYST Gender Identity Not on file Sexual Orientation Not on file Last Filed Vital Signs Vital Sign Reading Time Taken Comments Blood Pressure - - Pulse - - Temperature - - Respiratory Rate - - Oxygen Saturation - - Inhaled Oxygen Concentration - - Weight 111.1 kg (245 lb) 05/16/2024 2:49 PM CDT Height 190.5 cm (6' 3) 05/16/2024 2:49 PM CDT Body Mass Index [...] DIABETES 05/16/2024 DEPRESSION SCREENING 09/03/2024 INFLUENZA VACCINE (#1) 2025 2, 07/10/2017, 08/15/2014, Additional history exists Respiratory Syncytial [...] patient's age to complete this topic [id number] [facility] [place] [address] [facility] Care Teams Consumer Sales Representative Relationship Specialty Start Date End Date August Garrett MD [address] [place] [address] PCP - General Family Medicine 04/04/24 [place] [address] [place] [id number] Orthopedic Surgery 08/10/16
--- OUTSIDE RECORDS SUMMARY | 2025-03-10 09:15 | XMS_ITS | Clinical Summary ---
Author Organization [facility] Address [address] [facility] [place] [address] Care Team Providers Care Park Recreation Manager Name Role Phone August Garrett MD Primary Care Provider + [phone] Allergies No known active allergies Medications citalopram [...] for 14 days 30 capsule 08/08/2022 Active ciprofloxacin-d exAMETHasone (CIPRODEX) otic suspension SHAKE LIQUID AND INSTILL 5 DROPS INTO LEFT EAR EVERY 12 HOURS FOR 7 DAYS 02/15/2024 Active predniSONE (DELTASONE) 10 mg tablet Active cyclobenzaprine (FLEXERIL) 10 mg tablet Take 1 tablet (10 mg total) by mouth 3 (three) times a day as needed for muscle spasms 11/13/2024 Active amoxicillin 500 mg tablet TAKE FOUR TS PO 1 HOUR B DAPP 12/02/2024 Active gabapentin (NEURONTIN) 300 mg capsule TAKE 1 CAPSULE BY MOUTH EVERY DAY AT BEDTIME 12/19/2024 Active meloxicam (MOBIC) 15 mg tablet Take 1 tablet (15 mg total) by mouth daily 30 tablet 2 01/20/2025 04/20/20 25 Active meloxicam (MOBIC) 15 mg tablet Take 1 tablet (15 mg total) by mouth daily 30 tablet 2 01/20/2025 Active Active Problems Problem Noted Date Diagnosed Date Numbness of right hand 12/02/2024 LVH (left ventricular hypertrophy) 12/02/2024 Glenohumeral arthritis, left 08/08/2022 Anxiety 07/25/2022 Shoulder arthritis 05/24/2022 Overview (05/24/2022): Added automatically from request for surgery [id number] Localized, primary osteoarthritis of hand 2020 Pain in joint of right shoulder 01/03/2021 Overview (01/03/2021): Added automatically from request for surgery [id number] Biceps tendinitis of right upper extremity 01/03 Overview (01/03/2021): Added automatically from request for surgery [id number] Hyperlipidemia LDL goal <100 10/10/2019 KAREEN on [...] Encounters Date Type Department Care Team Description 01/20/2025 8:15 AM CDT Office Visit [facility] Orthopaedic Surgery [address] [facility] Medical Office Building [address] [place] [address] Thai Childress MD Unilateral primary osteoarthritis, left knee (Primary Dx) 01/20/2025 7:45 AM CDT - 01/20/2025 11:59 PM CDT Hospital Encounter [facility] Radiology [address] [facility] [address] [place] [address] Unilateral primary osteoarthritis, left knee Discharge Disposition: Discharge to home or self care 01/08/2025 Results Follow-Up [facility] Cardiology [address] [facility] [address] [place] [address] Gume Lim MD Transthoracic Echo (TTE) Complete W Doppler/CF 01/06/2025 8:15 AM CDT Ancillary Procedure [facility] Cardiology [address] [place] [address] PAT (paroxysmal atrial tachycardia); LVH (left ventricular hypertrophy) from Last 3 Months Immunizations Immunization Administration [...] on file Legal Sex Male 12:44 AM COOK RELIEF Gender Identity Not on file Sexual Orientation Not on file Obstetrics History Last Filed Vital Signs Vital Sign Reading Time Taken Comments Blood Pressure 120/74 12/02/2024 3:04 PM CDT Pulse 90 12/02/2024 3:04 PM CDT Temperature 36.3 C (97.4 F) 08/09/2022 8:06 AM COOK RELIEF Respiratory Rate 15 08/09/2022 8:06 AM COOK RELIEF Oxygen Saturation 92% 12/02/2024 3:04 PM CDT Inhaled Oxygen Concentration - - Weight 113.4 kg (250 lb) 12/02/2024 3:04 PM CDT Height 190.5 cm (6' 3) 12/02/2024 3:04 PM CDT Body Mass Index [...] 10/07/2018, 06/17/2018 Medical Devices Implanted Type Area Engineering Technical Specialist Device Identifier Shelf Expiration Date Model / Serial / Lot Rt Knee Knee [employer] Inc Ar-2324 Bcm Swivelock 4.75mm 24.5mm Self Punch Vent Shoulder [place] Suture - [id number] Implanted:Qty: 1 on 03/03/2021 by Jayy Long MD at [facility] Right: Shoulder [employer] Inc 12/01/2024 [id number]-[id number] / / [id number] Ar[employer]rex Inc Ar-3670 Set Implant Arthrex Fibertak Biceps Sterile Latex Free - [id number] Implanted:Qty: 1 on 03/03/2021 by Jayy Long MD at [facility] Right: Shoulder [employer] Inc 06/02/2025 AR-3670 / / [id number] [place] [facility] Simplex P Radiopaque Full Dose Cement Bone Sterile 6191-1-010 - [id number] Implanted:Qty: 1 on 08/08/2022 by Jayy Long MD at [facility] [place] [facility] 12/31/2024 6191-1-010 / / [id number] [employer] Banner 2 Peg Monoblock Shoulder 4 Component Glenoid Sterile [id number] - [id number] Implanted:Qty: 1 on 08/08/2022 by Jayy Long MD at [facility] [employer] 01/01/2028 [id number] / / [id number] [employer] Humeral [place] Shoulder Sidus [id number] 0 [id number] - [id number] Implanted:Qty: 1 on 08/08/2022 by Jayy Long MD at [facility] Left: Acromial Process [employer] 2031 [id number] / / [id number] [employer] Sidus Od48 Mm H17 Mm Stem Free Shoulder Head Humeral Sterile Latex Free [id number] - [id number] Implanted:Qty: 1 on 08/08/2022 by Jayy Long MD at [facility] Left: Shoulder [employer] 09/22/2031 [id number] / / [id number] Procedures Procedure Name Priority Date/Time Associated Diagnosis Comments SC ARTHROCENTESIS ASPIR&/INJ MAJOR JT/BURSA W/O US Routine 01/20/2025 8:15 AM CDT Unilateral primary osteoarthritis, left knee XR KNEE LEFT 4 OR MORE VIEWS Schedule Routine, Read Routine (OP Routine) 01/20/2025 8:05 AM CDT Unilateral primary osteoarthritis, left knee TRANSTHORACIC ECHO (TTE) COMPLETE W DOPPLER/CF WO CONTRAST Routine 01/06/2025 8:24 AM CDT PAT (paroxysmal atrial tachycardia) LVH (left ventricular hypertrophy) from Last 3 Months Results * SC ARTHROCENTESIS ASPIR&/INJ MAJOR JT/BURSA W/O US (01/20/2025 8:15 AM CDT) Narrative Thai Childress MD - 01/20/2025 8:15 AM CDT Thai Childress MD 01/20/2025 4:43 PM Large Joint Injection: L knee Performed by: Thai Childress MD Authorized by: Thai Childress MD Large Joint Injection/Aspiration: Consent Given by: Patient Site marked: the procedure site was marked Verbal consent obtained: Yes Supporting Documentation: Indications: Pain and joint swelling Procedure Details: Location: Knee Site: L knee Prep: patient was prepped using a clean technique Needle Size: 22 G Approach: Superior lateral Ultrasound guided: No Medications: 6 mL BUPivacaine 0.5 % (5 mg/mL); 80 mg methylPREDNISolone acetate 40 mg/mL Patient tolerance: Patient tolerated the procedure well with no immediate complications Thai Childress MD IN CLINIC/BEDSIDE ORDERABLE S Final Result * XR Knee Left 4 or More Views (01/20/2025 8:05 AM CDT) Anatomical Region Laterality Modality Lower Extremities, Knee Left Computed Radiography 01/20/2025 8:44 AM CDT Impressions 01/20/2025 9:29 AM CDT Unchanged moderate medial compartment predominant tricompartmental left knee osteoarthritis with small unchanged right effusion. Dictated by: Víctor Garcia M.D. The radiology attending physician has personally reviewed this study, and had reviewed and/or edited this written report and agrees with it. Electronically signed by: Alonso Fair D.O. Narrative 01/20/2025 9:29 AM CDT EXAMINATION: XR KNEE LEFT 4 OR MORE VIEWS HISTORY: Knee pain FINDINGS: 4 radiographs of the knees are submitted for evaluation. Comparison is made to prior radiographs dated 03/11/2024. Unchanged moderate medial compartment predominant tricompartmental left knee osteoarthritis. Unchanged small left knee joint effusion. Chondrocalcinosis of the medial and lateral compartments. 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 Right total knee arthroplasty is noted. Procedure Note Alonso Fair Hughes, DO - 01/20/2025 EXAMINATION: XR KNEE LEFT 4 OR MORE VIEWS HISTORY: Knee pain FINDINGS: 4 radiographs of the knees are submitted for evaluation. Comparison is made to prior radiographs dated 03/11/2024. Unchanged moderate medial compartment predominant tricompartmental left knee osteoarthritis. Unchanged small left knee joint effusion. Chondrocalcinosis of the medial and lateral compartments. 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 Right total knee arthroplasty is noted. IMPRESSION: Unchanged moderate medial compartment predominant tricompartmental left knee osteoarthritis with small unchanged right effusion. Dictated by: Víctor Garcia M.D. The radiology attending physician has personally reviewed this study, and had reviewed and/or edited this written report and agrees with it. Electronically signed by: Alonso Fair D.O. us Thai Childress MD IMG XR PROCEDURES Final Res ult * TRANSTHORACIC ECHO (TTE) COMPLETE W DOPPLER/CF WO CONTRAST (01/06/2025 8:24 AM CDT) Estimated EF 70-75 % CONS SCIMAGE EF Mod BP 65 % CONS SCIMAGE Anatomical Region Laterality Modality Ultrasound 01/06/2025 8:08 AM CDT Narrative 01/06/2025 4:31 PM CDT [facility] Cardiology [address], [place] [address] [address] [facility] [address], [place] [address] P:[phone] P:[phone] Echocardiographic Report Patient Name: ELVIA ALEJANDRO W : 1955 Study Date: 01/06/2025 8:08:22 AM Gender: M Tech: Ref Provider: GUME LIM Height(Cm): 190 BSA: 2.45 Weight(Kg): 113.4 Heart Rate: 90 BP: 120 / 74 Quality: Good Order Provider: GUME LIM PROCEDURES: Echocardiographic Report: Transthoracic echocardiogram with complete 2D, M-Mode, and color Doppler examination. With Strain Analysis. INDICATIONS: PAT, LVH. MEASUREMENTS: 2D/MM Value Range Doppler Value Range EF Mod BP 65 % [ 52 - 72 ] AV Mean PG 5 mmHg EF Teich MM 73 % [ 52 - 72 ] AV Peak Breezy 1.46 m/s [ 1.00 - 1.70 ] Estimated EF 70-75 % AV Peak PG 9 mmHg LVIDd 2D 4.34 cm [ 4.20 - 5.80 ] AV VTI 26.60 cm LVIDd MM 4.51 cm [ 4.20 - 5.80 ] LVOT Peak Breezy 1.25 m/s [ 0.70 - 1.10 ] LVIDs 2D 2.69 cm [ 2.50 - 4.00 ] LVOT VTI 22.86 cm LVIDs MM 2.63 cm [ 2.50 - 4.00 ] MV E Peak Breezy 0.71 m/s [ 0.60 - 1.30 ] LVPWd MM 1.17 cm [ 0.60 - 1.00 ] MV A Peak Breezy 0.69 m/s [ 1.00 - 1.20 ] IVSd 2D 1.43 cm [ 0.60 - 1.00 ] MV Decel Time 252 msec [ 104 - 258 ] IVSd MM 1.10 cm [ 0.60 - 1.00 ] PV Peak Breezy 1.18 m/s [ 0.40 - 0.80 ] LA Dimension MM 4.18 cm [ 3.00 - 4.00 ] Lateral E` 0.11 m/s [ 0.10 - 0.15 ] AoR Diam MM 3.86 cm [ 3.10 - 3.70 ] E` 0.07 m/s LA Volume Index 19 cc/m2 [ 16 - 34 ] E/E` 7 ACS MM 2.76 cm [ 1.50 - 2.60 ] 2D/MM Value Range Doppler Value Range - FINDINGS: Interpretation Site: Exam was interpreted at [facility]. Left Ventricle: Normal left ventricular systolic function. No focal wall motion abnormalities. Normal left ventricular size. Moderate concentric left ventricular hypertrophy. Impaired diastolic relaxation Grade I. Ejection fraction is measured at 65 %. Ejection Fraction is visually estimated to be 70-75 %. Global Longitudinal Strain is -18 %. GLS is borderline. Right Ventricle: Normal right ventricular size. Normal right ventricular systolic function. Left Atrium: There is mild enlargement of left atrium. Right Atrium: The right atrium is normal in size. Atrial Septum: Thin and hypermobile atrial septum. Mitral Valve: Normal appearance of the mitral valve. Trivial regurgitation of the mitral valve. There is no hemodynamically significant mitral stenosis by Doppler. Aortic Valve: Normal appearance of the aortic valve. No evidence of hemodynamically significant aortic stenosis by Doppler. Trileaflet aortic valve. Trace aortic valve regurgitation. Tricuspid Valve: Normal appearance of the tricuspid valve. Right ventricular systolic pressure could not be estimated due to inadequate visualization of the tricuspid regurgitation jet. Trivial regurgitation in the tricuspid valve. Pulmonic Valve: Normal appearance of the pulmonic valve. No pulmonic stenosis. Trivial regurgitation in the pulmonic valve. Pericardium: Normal pericardium with no significant pericardial effusion. Aorta: Sinus of Valsalva 3.9 cm. Aortic root is mildly dilated. IVC: Normal size and normal respiratory collapse consistent with normal right atrial pressure (<5 mmHg). CONCLUSIONS: Normal left ventricular systolic function. No focal wall motion abnormalities. Normal left ventricular size. Moderate concentric left ventricular hypertrophy. Impaired diastolic relaxation Grade I. Ejection fraction is measured at 65 %. Ejection Fraction is visually estimated to be 70-75 %. Global Longitudinal Strain is -18 %. GLS is borderline. There is mild enlargement of left atrium. Sinus of Valsalva 3.9 cm. Aortic root is mildly dilated. Normal Doppler with normal valvular structure and function. Normal sinus rhythm. Electronically Signed By: Gume Lim MD 01/06/2025 4:31:16 PM CDT Procedure Note Gume Lim MD - 01/06/2025 [facility] Cardiology [address] [facility] [address], [place] [address] [address] [facility] [address] [place] [address] P:[phone] P:[phone] Echocardiographic Report Patient Name: ELVIA ALEJANDRO W : 1955 Study Date: 01/06/2025 8:08:22 AM Gender: M Tech: Ref Provider: GUME LIM Height(Cm): 190 BSA: 2.45 Weight(Kg): 113.4 Heart Rate: 90 BP: 120 / 74 Quality: Good Order Provider: GUME LIM PROCEDURES: Echocardiographic Report: Transthoracic echocardiogram with complete 2D, M-Mode, and color Dopplerexamination. With Strain Analysis. INDICATIONS: PAT, LVH. MEASUREMENTS: 2D/MM Value Range Doppler ValueRange EF Mod BP 65 % [ 52 - 72 ] AV Mean PG 5mmHg EF Teich MM 73 % [ 52 - 72 ] AV Peak Breezy 1.46m/s [ 1.00 - 1.70 ] Estimated EF 70-75 % AV Peak PG 9mmHg LVIDd 2D 4.34 cm [ 4.20 - 5.80 ] AV VTI 26.60cm LVIDd MM 4.51 cm [ 4.20 - 5.80 ] LVOT Peak Breezy 1.25m/s [ 0.70 - 1.10 ] LVIDs 2D 2.69 cm [ 2.50 - 4.00 ] LVOT VTI 22.86cm LVIDs MM 2.63 cm [ 2.50 - 4.00 ] MV E Peak Breezy 0.71m/s [ 0.60 - 1.30 ] LVPWd MM 1.17 cm [ 0.60 - 1.00 ] MV A Peak Breezy 0.69m/s [ 1.00 - 1.20 ] IVSd 2D 1.43 cm [ 0.60 - 1.00 ] MV Decel Time 252msec [ 104 - 258 ] IVSd MM 1.10 cm [ 0.60 - 1.00 ] PV Peak Breezy 1.18m/s [ 0.40 - 0.80 ] LA Dimension MM 4.18 cm [ 3.00 - 4.00 ] Lateral E` 0.11m/s [ 0.10 - 0.15 ] AoR Diam MM 3.86 cm [ 3.10 - 3.70 ] E` 0.07m/s LA Volume Index 19 cc/m2 [ 16 - 34 ] E/E` 7 ACS MM 2.76 cm [ 1.50 - 2.60 ] 2D/MM Value Range Doppler ValueRange - FINDINGS: Interpretation Site: Exam was interpreted at [facility]. Left Ventricle: Normal left ventricular systolic function. No focal wall motionabnormalities. Normal left ventricular size. Moderate concentric left ventricular hypertrophy.Impaired diastolic relaxation Grade I. Ejection fraction is measured at 65 %.Ejection Fraction is visually estimated to be 70-75 %. Global Longitudinal Strain is -18 %. GLSis borderline. Right Ventricle: Normal right ventricular size. Normal right ventricular systolicfunction. Left Atrium: There is mild enlargement of left atrium. Right Atrium: The right atrium is normal in size. Atrial Septum: Thin and hypermobile atrial septum. Mitral Valve: Normal appearance of the mitral valve. Trivial regurgitation of the mitralvalve. There is no hemodynamically significant mitral stenosis by Doppler. Aortic Valve: Normal appearance of the aortic valve. No evidence of hemodynamicallysignificant aortic stenosis by Doppler. Trileaflet aortic valve. Trace aortic valveregurgitation. Tricuspid Valve: Normal appearance of the tricuspid valve. Right ventricular systolicpressure could not be estimated due to inadequate visualization of the tricuspidregurgitation jet. Trivial regurgitation in the tricuspid valve. Pulmonic Valve: Normal appearance of the pulmonic valve. No pulmonic stenosis. Trivialregurgitation in the pulmonic valve. Pericardium: Normal pericardium with no significant pericardial effusion. Aorta: Sinus of Valsalva 3.9 cm. Aortic root is mildly dilated. IVC: Normal size and normal respiratory collapse consistent with normal rightatrial pressure (<5 mmHg). CONCLUSIONS: Normal left ventricular systolic function. No focal wall motionabnormalities. Normal left ventricular size. Moderate concentric left ventricular hypertrophy.Impaired diastolic relaxation Grade I. Ejection fraction is measured at 65 %.Ejection Fraction is visually estimated to be 70-75 %. Global Longitudinal Strain is -18 %. GLSis borderline. There is mild enlargement of left atrium. Sinus of Valsalva 3.9 cm. Aortic root is mildly dilated. Normal Doppler with normal valvular structure and function. Normal sinus rhythm. Electronically Signed By: Gume Lim MD 01/06/2025 4:31:16 PM CDT Gume Lim MD CV ECHO PROCEDURES Final Result from Last 3 Months Insurance MEDICARE [facility] Address: [facility] [id number] [place] [id number] [facility] MEDICARE [facility] MEDICARE [facility] Advance Directives For more information, please contact: [phone] * Full Code (Latest Code Status on File) Date Activated Date Inactivated Comments 08/08/2022 1:46 PM 08/09/2022 3:11 PM Care Teams Park Recreation Manager Relationship Specialty Start Date End Date August Garrett MD PCP - General 12/01/15
--- OUTSIDE RECORDS SUMMARY | 2025-03-10 09:15 | XMS_ITS | Referral Summary ---
Author Organization [facility] Address [address] [facility] [place] [address] Care Team Providers Care Account Services Associate Name Role Phone August Garrett MD Primary Care Provider Encounters Date Type Department Care Team Description 01/20/2025 7:45 AM CDT - 01/20/2025 11:59 PM CDT Hospital Encounter [facility] Radiology [address] [facility] [address] [place] [address] Unilateral primary osteoarthritis, left knee Discharge Disposition: Discharge to home or self care 01/20/2025 8:15 AM CDT Office Visit [facility] Orthopaedic Surgery [address] [facility] Medical [address] [place] [address] Thai Childress MD Unilateral primary osteoarthritis, left knee (Primary Dx) 01/08/2025 Results Follow-Up [facility] Cardiology [address] [facility] [address] [place] [phone] Gume Lim MD Transthoracic Echo (TTE) Complete W Doppler/CF 01/06/2025 8:15 AM CDT Ancillary Procedure [facility] Cardiology [address] [facility] [address] [place] [address] PAT (paroxysmal atrial tachycardia); LVH (left ventricular hypertrophy) from Last 3 Months Allergies No known [...] (05/24/2022): Added automatically from request for surgery [id number] Localized, primary osteoarthritis of hand 2020 Pain in joint of right shoulder 01/03/2021 Overview (01/03/2021): Added automatically from request for surgery [id number] Biceps tendinitis of right upper extremity 01/03 Overview (01/03/2021): Added automatically from request for surgery [id number] Hyperlipidemia LDL goal <100 10/10/2019 KAREEN on [...] on file Legal Sex Male 12:44 AM 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 CONTROL LAB TECH Gender Identity Not on file Sexual Orientation Not on file Last Filed Vital Signs Vital Sign Reading Time Taken Comments Blood Pressure 120/74 12/02/2024 3:04 PM CDT Pulse 90 12/02/2024 3:04 PM CDT Temperature 36.3 C (97.4 F) 08/09/2022 8:06 AM QUALITY CONTROL LAB TECH Respiratory Rate 15 08/09/2022 8:06 AM QUALITY CONTROL LAB TECH Oxygen Saturation 92% 12/02/2024 3:04 PM CDT Inhaled Oxygen Concentration - - Weight 113.4 kg (250 lb) 12/02/2024 3:04 PM CDT Height 190.5 cm (6' 3) 12/02/2024 3:04 PM CDT Body Mass Index 31.25 12/02/2024 3:04 PM CDT Plan of Treatment Not on file Medical Devices Implanted Type Area Beef Cattle Specialist Device Identifier Shelf Expiration Date Model / Serial / Lot Rt Knee Knee [employer] Ar-2324 Bcm Swivelock 4.75mm 24.5mm Self Punch Vent Shoulder Ideal Suture - [id number] Implanted:Qty: 1 on 03/03/2021 by Jayy Long MD at [facility] [place] Right: Shoulder [employer] 12/01/2024 AR-2324BCM / / [id number] [employer] Ar-3670 Set Implant Ar[employer]rex Fibertak Biceps Sterile Latex Free - [id number] Implanted:Qty: 1 on 03/03/2021 by Jayy Long MD at [facility] Right: Shoulder [employer] 06/02/2025 AR-3670 / / [id number] [employer] [facility] Simplex P Radiopaque Full Dose Cement Bone Sterile 6191-1-010 - [id number] Implanted:Qty: 1 on 08/08/2022 by Jayy Long MD at [facility] [employer] 12/31/2024 6191-1-010 / / [id number] [employer] Sprague 2 Peg Monoblock Shoulder 4 Component Glenoid Sterile [id number] - [id number] Implanted:Qty: 1 on 08/08/2022 by Jayy Long MD at [facility] [employer] 01/01/2028 [id number] / / [id number] [employer] Humeral Ideal Shoulder Sidus [id number] 0 [id number] - [id number] Implanted:Qty: 1 on 08/08/2022 by Jayy Long MD at [facility] Left: Acromial Process [employer] 2031 [id number] / / [id number] [employer] Sidus Od48 Mm H17 Mm Stem Free Shoulder Head Humeral Sterile Latex Free [id number] - [id number] Implanted:Qty: 1 on 08/08/2022 by Jayy Long MD at [facility] Left: Shoulder [employer] 09/22/2031 [id number] / / [id number] Procedures Procedure Name Priority Date/Time Associated Diagnosis Comments DE ARTHROCENTESIS ASPIR&/INJ MAJOR JT/BURSA W/O US Routine [...] hypertrophy) from Last 3 Months Results * DE ARTHROCENTESIS ASPIR&/INJ MAJOR JT/BURSA W/O US (01/20/2025 [...] small unchanged right effusion. Dictated by: Víctor Gacria M.D. The radiology attending physician has personally [...] knee arthroplasty is noted. Procedure Note Alonso Fair, DO - 01/20/2025 EXAMINATION: XR KNEE LEFT [...] it. Electronically signed by: Alonso Fair D.O. Thai Childress MD IMG XR PROCEDURES Final Res ult * TRANSTHORACIC ECHO (TTE) COMPLETE W DOPPLER/CF WO CONTRAST (01/06/2025 8:24 AM CDT) Estimated EF 70-75 % CONS SCIMAGE EF Mod BP 65 % CONS SCIMAGE Anatomical Region Laterality Modality Ultrasound 01/06/2025 8:08 AM CDT Narrative 01/06/2025 4:31 PM CDT [facility] Cardiology [address] [facility] [address], [place] [address] [address] [facility] [address], [place] [address] P:[phone] P:[phone] Echocardiographic Report Patient Name: ELVIA ALEJANDRO W : 1955 Study Date: 01/06/2025 8:08:22 AM Gender: M Tech: SW Ref Provider: GUME LIM Height(Cm): 190 BSA: [...] FINDINGS: Interpretation Site: Exam was interpreted at [facility]. Left Ventricle: Normal left ventricular systolic [...] Procedure Note Gume Lim MD - 01/06/2025 [facility] Cardiology [address] [facility] [address] [id number] [address] [facility] [address], [place], [place] [address] P:[phone] P:[phone] Echocardiographic Report Patient Name: ELVIA ALEJANDRO W [...] FINDINGS: Interpretation Site: Exam was interpreted at [facility]. Left Ventricle: Normal left ventricular systolic [...] Gume Lim MD 01/06/2025 4:31:16 PM CDT us Gume Lim MD CV ECHO PROCEDURES Final Result from Last 3 Months Insurance MEDICARE [facility] MEDICARE [facility] MEDICARE [facility] Advance Directives For more information, please contact: [phone] * Full Code (Latest Code Status on File) Date Activated Date Inactivated Comments 08/08/2022 1:46 PM 08/09/2022 3:11 PM Care Teams Account Services Associate Relationship Specialty Start Date End Date August Garrett MD PCP - General 12/01/15
--- OUTSIDE RECORDS SUMMARY | 2025-03-10 09:15 | XMS_ITS | Clinical Summary ---
Author Organization [facility] Address [facility] [place] [address] Care Team Providers Care Stitcher Around Name Role Phone Unavailable Primary Care Provider [...]
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
--- OUTSIDE RECORDS SUMMARY | 2025-03-10 09:16 | XMS_ITS | Encounter Summary ---
Author Organization [facility] Address [address] [place] [address] Care Team Providers Care Bar Waiter/Waitress Name Role Phone Brian Bautista MD Unavailable [phone] August Garrett MD Primary Care Provider [phone] August Garrett MD Primary Care Provider [phone] Encounter Details Date Type Department Care Team (Late st Contact Info) Description 07/04/2019 Lab Requisition [facility] DermPath Lab [address] [facility], [place] [address] Anju Lyle MD [address] [facility] 3 [place] [address] Social History Tobacco Use Types Packs/Day Years Used Date Smoking Tobacco: Never Alcohol Use Standard Drinks/Week Comments Yes 0 (1 standard drink = 0.6 oz pur e alcohol) Sex and Gender Information Value Date Recorded Sex Assigned at Not on file Legal Sex Male 5:01 AM ACCOUNTING GENERALIST Gender Identity Not on file Sexual Orientation Not on file documented as of this encounter Plan of Treatment Not on file documented as of this encounter Procedures Procedure Name Priority Date/Time Associated Diagnosis Comments DERMATOPATH TECHNICAL REPORT Routine 07/04/2019 12:00 AM CDT documented in this encounter Results * DERMATOPATH TECHNICAL REPORT (07/04/2019 12:00 AM CDT) Case Report Dermatopathology Report Case: [id number] Authorizing Provider: Anju Lyle MD Collected: 07/04/2019 12:00 AM Ordering Location: [facility] DermPath Lab Received: 07/04/2019 11:45 AM Pathologist: Tom Correa MD Specimen: Skin, right anterior shoulder 12:57 PM CDT DERMATOPATHOLOGY LABORATORY Clinical History R/O BCC, irritated. 12:57 PM CDT DERMATOPATHOLOGY LABORATORY Gross Description Specimen A: Received is one formalin filled container labeled with the patient's name and designated right anterior shoulder. The specimen consists of a shave measuring [id number]. Jar 0. [facility] Dermatopathology Laboratory performed the technical component only. [...] determined by the Dermatopathology Laboratory at [facility], directed by Dr. Hunter Correa. These tests need not be, and therefore are not, approved by the [place] Food and Drug Administration. The tests are used for clinical purposes. 12:57 PM CDT DERMATOPATHOLOGY LABORATORY at [address] [place] [address] Pathology/Cytolog y TISSUE SPECIMEN FROM SKIN / Unknown 07/04/2019 07/04/2019 11:45 AM CDT Anju Lyle MD LAB - PATHOLOGY/CYTOLOGY OR DERABLES Final Result DERMATOPATHOLOGY LABORATORY [facility] - Department of Dermatology [facility] [facility], 5th [place] [address], [facility] [phone] documented in this encounter Visit Diagnoses Not on filedocumented in this encounter Care Teams Bar Waiter/Waitress Relationship Specialty Start Date End Date August Garrett MD [address] [place] [address] PCP - General Family Medicine 08/10/16 04/03/24 August Garrett MD [address] [place] [address] PCP - General Family Medicine 04/04/24 [place] [address] [address] Orthopedic Surgery 08/10/16 documented as of this encounter
--- OUTSIDE RECORDS SUMMARY | 2025-03-10 09:16 | XMS_ITS | Encounter Summary ---
Author Organization [facility] Address [address] [facility] [place] [address] Care Team Providers Care Fur Blower Name Role Phone Brian Bautista MD Unavailable [phone] August Garrett MD Primary Care Provider [phone] August Garrett MD Primary Care Provider [phone] Encounter Details Date Type Department Care Team (Late st Contact Info) Description 08/12/2020 Lab Requisition [facility] DermPath Lab [address] [facility], [place] [address] Anju Lyle MD [address] [facility] 3 [place] [address] Social History Tobacco Use Types Packs/Day Years Used Date Smoking Tobacco: Never Alcohol Use Standard Drinks/Week Comments Yes 0 (1 standard drink = 0.6 oz pur e alcohol) Sex and Gender Information Value Date Recorded Sex Assigned at Not on file Legal Sex Male 5:01 AM FIELD SALES SPECIALIST Gender Identity Not on file Sexual Orientation Not on file documented as of this encounter Plan of Treatment Not on file documented as of this encounter Procedures Procedure Name Priority Date/Time Associated Diagnosis Comments DERMATOPATHOLOGY Routine 08/12/2020 12:0 0 AM FIELD SALES SPECIALIST documented in this encounter Results * DERMATOPATHOLOGY (08/12/2020 12:00 AM FIELD SALES SPECIALIST) Case Report Dermatopathology Report Case: [id number] Authorizing Provider: Anju Lyle MD Collected: 08/12/2020 12:00 AM Ordering Location: [facility] DermPath Lab Received: 08/12/2020 11:24 AM Pathologist: Tom Correa MD Specimen: Skin, right FH scalp 0 4:02 PM FIELD SALES SPECIALIST DERMATOPATHOLOGY LABORATORY Final Diagnosis Specimen A. SKIN, right FH scalp: ACTINIC KERATOSIS, LICHENOID (L57.0) POST-INFLAMMATORY PIGMENT ALTERATION (L81.9) 0 4:02 PM [facility] DERMATOPATHOLOGY LABORATORY at [address] FIELD SALES SPECIALIST Clinical History R/O pig BCC, irregular color. 0 4:02 PM [facility] DERMATOPATHOLOGY LABORATORY Gross Description Specimen A: Received is one formalin filled container labeled with the patient's name and designated right FH scalp. The specimen consists of a shave measuring 8v2z4km. Jar 0. 0 4:02 PM [facility] DERMATOPATHOLOGY LABORATORY Microscopic Description Specimen A. SKIN, right FH scalp: There is focal parakeratosis. The lower half of the epidermis shows disorderly maturation of keratinocytes with nuclear pleomorphism. The dermis shows a band-like, chronic inflammatory infiltrate with occasional apoptotic keratinocytes and some basal vacuolar alteration. Sections show abundant melanin within melanophages around the superficial vascular plexus. 0 4:02 PM [facility] DERMATOPATHOLOGY LABORATORY Disclaimer An external and internal [...] purposes. Billing Codes Specimen Charges Stain Charges 25987 1 0 4:02 PM FIELD SALES SPECIALIST DERMATOPATHOLOGY LABORATORY Embedded Images 0 4:02 PM [facility] DERMATOPATHOLOGY LABORATORY Pathology/Cytolog y TISSUE SPECIMEN FROM SKIN / Unknown 08/12/2020 08/12/2020 11:24 AM FIELD SALES SPECIALIST Anju Lyle MD LAB - PATHOLOGY/CYTOLOGY OR DERABLES Final Result DERMATOPATHOLOGY LABORATORY [facility] - Department of Dermatology [facility] Medicine [address] [facility], 3rd Floor [address] [phone] documented in this encounter Visit Diagnoses Not on filedocumented in this encounter Care Teams Fur Blower Relationship Specialty Start Date End Date August Garrett MD [address] [place] [address] PCP - General Family Medicine 08/10/16 04/03/24 August Garrett MD [address] [place] [address] PCP - General Family Medicine 04/04/24 [place] [address] [address] [address] Orthopedic Surgery 08/10/16 documented as of this encounter
--- OUTSIDE RECORDS SUMMARY | 2025-03-10 09:16 | XMS_ITS | Encounter Summary ---
Author Organization [facility] Address [address] [place] [address] Care Team Providers Care Microchip Specialist Name Role Phone August Garrett MD Primary Care Provider [phone] Encounter Details Date Type Department Care Team (Late st Contact Info) Description 07/24/2022 Treatment [facility] PATHOLOGY [address] [facility] [address] [place] [address] Manish Dejesus MD [facility] [address] [facility] 9399-3070-36 [place] [address] Social History Tobacco Use Types Packs/Day Years [...] on file Legal Sex Male 12:44 AM RADIO CONTROL CRANE OPERATOR Gender Identity Not on file Sexual Orientation [...] this patient. Contact Information: Please contact the [facility] Blood Bank with any questions. This report has been prepared by: Manish Dejesus MD Cosigned by Leslie Beebe MD PhD at 07/26/2022 4:21 PM RADIO CONTROL CRANE OPERATOR O CONTROL CRANE OPERATOR O CONTROL CRANE OPERATOR O CONTROL CRANE OPERATOR O CONTROL CRANE OPERATOR Associated attestation - Leslie Beebe MD PhD - 07/26/2022 4:21 PM RADIO CONTROL CRANE OPERATOR Attestation: I have personally reviewed the antibody result and agree with the interpretation contained in this written blood bank report. Leslie Beebe MD PhD documented in this encounter Plan of Treatment Not on file documented as of this encounter Visit Diagnoses Not on filedocumented in this encounter Care Teams Microchip Specialist Relationship Specialty Start Date End Date August Garrett MD PCP - General 12/01/15 documented as of this encounter
--- OUTSIDE RECORDS SUMMARY | 2025-03-10 09:16 | XMS_ITS | Encounter Summary ---
Author Organization [facility] Address [address] [facility] [place] [address] Care Team Providers Care Offal Icer Poultry Name Role Phone Brian Bautista MD Unavailable [phone] August Garrett MD Primary Care Provider [phone] August Garrett MD Primary Care Provider [phone] Encounter Details Date Type Department Care Team (Late st Contact Info) Description 02/10/2020 Lab Requisition [facility] DermPath Lab [address] [facility], [place] [address] Anju Lyle MD [address] [facility] 3 [place] [address] Social History Tobacco Use Types Packs/Day Years Used Date Smoking Tobacco: Never Alcohol Use Standard Drinks/Week Comments Yes 0 (1 standard drink = 0.6 oz pur e alcohol) Sex and Gender Information Value Date Recorded Sex Assigned at Not on file Legal Sex Male 5:01 AM FOUNDRY METALLURGIST Gender Identity Not on file Sexual Orientation Not on file documented as of this encounter Plan of Treatment Not on file documented as of this encounter Procedures Procedure Name Priority Date/Time Associated Diagnosis Comments DERMATOPATHOLOGY Routine 02/10/2020 12:0 0 AM CDT documented in this encounter Results * DERMATOPATHOLOGY (02/10/2020 12:00 AM CDT) Case Report Dermatopathology Report Case: [id number] Authorizing Provider: Anju Lyle MD Collected: 02/10/2020 12:00 AM Ordering Location: [facility] DermPath Lab Received: 02/10/2020 11:22 AM Pathologist: Marva Rodriguez MD Specimen: Skin, left anti helix 0 1:52 PM CDT DERMATOPATHOLOGY LABORATORY Final Diagnosis Specimen A. SKIN, left anti helix: BASAL CELL CARCINOMA (C44.219) (see microscopic description and comment) 0 1:52 PM CDT DERMATOPATHOLOGY LABORATORY at 1352 CDT Clinical History R/O BCC, irritated, non-healing 0 [...] characteristic determined by the Dermatopathology Laboratory at [facility], directed by Dr. Hunter Correa. These tests need not be, and therefore are not, approved by the [place] Food and Drug Administration. The tests are used for clinical purposes. Billing Codes Specimen Charges Stain Charges 95512 1 0 1:52 PM CDT DERMATOPATHOLOGY LABORATORY Embedded Images 0 1:52 PM CDT DERMATOPATHOLOGY LABORATORY Pathology/Cytolog y TISSUE SPECIMEN FROM SKIN / Unknown 02/10/2020 02/10/2020 11:22 AM CDT us Anju Lyle MD LAB - PATHOLOGY/CYTOLOGY OR DERABLES Final Result DERMATOPATHOLOGY LABORATORY [facility] - Department of Dermatology Zoology Teacher [place] [phone] documented in this encounter Visit Diagnoses Not on filedocumented in this encounter Care Teams Offal Icer Poultry Relationship Specialty Start Date End Date August Garrett MD [address] [place] [address] PCP - General Family Medicine 08/10/16 04/03/24 August Garrett MD [address] [place] [address] PCP - General Family Medicine 04/04/24 [place] [address] [address] Orthopedic Surgery 08/10/16 documented as of this encounter
--- OUTSIDE RECORDS SUMMARY | 2025-03-10 09:16 | XMS_ITS | Encounter Summary ---
Author Organization [facility] Address [address] [facility] [place] [address] Care Team Providers Care Assistant Auditor Name Role Phone Brian Bautista MD Unavailable [phone] August Garrett MD Primary Care Provider [phone] August Garrett MD Primary Care Provider [phone] Encounter Details Date Type Department Care Team (Late st Contact Info) Description 10/01/2019 Lab Requisition [facility] DermPath Lab [address] [facility], [place] [address] Anju Lyle MD [address] [facility] 3 [place] [address] Social History Tobacco Use Types Packs/Day Years Used Date Smoking Tobacco: Never Alcohol Use Standard Drinks/Week Comments Yes 0 (1 standard drink = 0.6 oz pur e alcohol) Sex and Gender Information Value Date Recorded Sex Assigned at Not on file Legal Sex Male 5:01 AM SAW CLEANER Gender Identity Not on file Sexual Orientation Not on file documented as of this encounter Plan of Treatment Not on file documented as of this encounter Procedures Procedure Name Priority Date/Time Associated Diagnosis Comments DERMATOPATHOLOGY Routine 09/30/2019 12:0 0 AM SAW CLEANER documented in this encounter Results * DERMATOPATHOLOGY (09/30/2019 12:00 AM SAW CLEANER) Case Report Dermatopathology Report Case: [id number] Authorizing Provider: Anju Lyle MD Collected: 09/30/2019 12:00 AM Ordering Location: [facility] Derm[facility] Lab Received: 10/01/2019 08:10 AM Pathologist: Tom Correa MD Specimen: Skin, left ant shoulder 0 4:12 PM [facility] DERMATOPATHOLOGY LABORATORY Amended Report Changed site from left ant shoulder to right ant shoulder. 0 4:12 PM [facility] DERMATOPATHOLOGY LABORATORY Final Diagnosis Specimen A. SKIN, right ant shoulder: DERMAL SCAR RESIDUAL BASAL CELL CARCINOMA NOT IDENTIFIED (L90.5) 0 4:12 PM [facility] DERMATOPATHOLOGY LABORATORY Amendment electronically signed by Tom Correa MD on 10/06/2019 at 1612 SAW CLEANER at 1329 SAW CLEANER Clinical History R/O BCC, biopsy proven. 0 4:12 PM [facility] DERMATOPATHOLOGY LABORATORY Gross Description Specimen A: Received is one formalin filled container labeled with the patient's name and designated right ant shoulder. The specimen consists of a non-oriented ellipse of skin measuring [id number]. The epidermal surface consists of a centrally located 5x5mm previous biopsy site. The margin is inked green. The 12 o'clock and 6 o'clock tips are submitted in cassette 1. The remainder of the ellipse is serially sectioned and submitted in cassettes 2-4. Jar 0. 0 4:12 PM [facility] DERMATOPATHOLOGY LABORATORY Microscopic Description Specimen A. SKIN, right ant shoulder: There are fibroblasts and collagen bundles oriented parallel to the skin surface. There are elongated blood vessels, some of which are oriented perpendicular to the skin surface. No basal cell carcinoma is identified. 0 4:12 PM [facility] DERMATOPATHOLOGY LABORATORY Disclaimer An external and internal positive and negative controls are appropriate for the histochemical, immunohistochemical and immunofluorescence stain(s) in this case (if any), except where stated explicitly. The performance characteristics of the stain(s) cited in this report were developed and its performance characteristic determined by the Dermatopathology Laboratory at [facility], directed by Dr. Hunter Correa. These tests need not be, and therefore are not, approved by the [place] Food and Drug Administration. The tests are used for clinical purposes. Billing Codes Specimen Charges Stain Charges 02399 1 0 4:12 PM [facility] DERMATOPATHOLOGY LABORATORY Embedded Images 0 4:12 PM [facility] DERMATOPATHOLOGY LABORATORY Pathology/Cytolog y TISSUE SPECIMEN FROM SKIN / Unknown 09/30/2019 10/01/2019 8:10 AM SAW CLEANER Anju Lyle MD LAB - PATHOLOGY/CYTOLOGY OR DERABLES Edited Result - Final DERMATOPATHOLOGY LABORATORY [facility] - Department of Dermatology [address] [place] [address], [address] [phone] documented in this encounter Visit Diagnoses Not on filedocumented in this encounter Care Teams Assistant Auditor Relationship Specialty Start Date End Date August Garrett MD [address] [place] [address] PCP - General Family Medicine 08/10/16 04/03/24 August Garrett MD [address] [place] [address] PCP - General Family Medicine 04/04/24 [place] [address] [address] [address] Orthopedic Surgery 08/10/16 documented as of this encounter
--- OUTSIDE RECORDS SUMMARY | 2025-03-10 09:16 | XMS_ITS | Encounter Summary ---
Author Organization [facility] Address [address] [place] [address] Care Team Providers Care Registered Travel Nurse Name Role Phone Brian Bautista MD Unavailable [phone] August Garrett MD Primary Care Provider [phone] August Garrett MD Primary Care Provider Encounter Details Date Type Department Care Team (Late Contact [facility]) Description 10/08/2023 Lab Requisition [facility] - DermPath Lab [address] [facility], [place] [address] Anju Lyle MD [address] [facility] 3 [place] [address] Social History Tobacco Use Types Packs/Day Years Used Date Smoking Tobacco: Never Alcohol Use Standard Drinks/Week Comments Yes 0 (1 standard drink = 0.6 oz pur e alcohol) Sex and Gender Information Value Date Recorded Sex Assigned at Not on file Legal Sex Male 5:01 AM CLERICAL ASSIGNER Gender Identity Not on file Sexual Orientation Not on file documented as of this encounter Plan of Treatment Not on file documented as of this encounter Procedures Procedure Name Priority Date/Time Associated Diagnosis Comments DERMATOPATHOLOGY Routine 10/08/2023 8:28 AM CLERICAL ASSIGNER documented in this encounter Results * DERMATOPATHOLOGY (10/08/2023 8:28 AM CLERICAL ASSIGNER) Case Report Dermatopathology Report Case: [id number] Authorizing Provider: Anju Lyle MD Collected: 10/08/2023 08:28 AM Ordering Location: [facility] DermPath Lab Received: 10/09/2023 09:12 AM Pathologist: Yessica Figueroa MD Specimens: A) - Skin, central chest B) - Skin, right upper cheek C) - Skin, left sideburn 1:47 PM [facility] DERMATOPATHOLOGY LABORATORY Final Diagnosis Specimen A. SKIN, central chest: BASAL CELL CARCINOMA, NODULAR TYPE (C44.519) Specimen B. SKIN, right upper cheek: BASAL CELL CARCINOMA, NODULAR TYPE (C44.319) Specimen C. SKIN, left sideburn: SEBORRHEIC KERATOSIS, INFLAMED (L82.0) 1:47 PM [facility] DERMATOPATHOLOGY LABORATORY at 1347 CLERICAL ASSIGNER Clinical History A-C: BCC 1:47 PM [facility] DERMATOPATHOLOGY LABORATORY Gross Description [...] measuring 8x6x1 mm. Jar 0. 1:47 PM [facility] DERMATOPATHOLOGY LABORATORY Microscopic Description [...] dermis that is focally lichenoid. 1:47 PM [facility] DERMATOPATHOLOGY LABORATORY Disclaimer An external and internal positive and negative controls are appropriate for the histochemical, immunohistochemical and immunofluorescence stain(s) in this case (if any), except where stated explicitly. The performance characteristics of the stain(s) cited in this report were developed and its performance characteristic determined by the Dermatopathology Laboratory at [facility], directed by Dr. Hunter Correa. These tests need not be, and therefore are not, approved by the [place] Food and Drug Administration. The tests are used for clinical purposes. Billing Codes Specimen Charges Stain Charges 93984 12854 11118 1 1 1 4 1:47 PM CLERICAL ASSIGNER DERMATOPATHOLOGY LABORATORY Embedded Images 4 1:47 PM CLERICAL ASSIGNER DERMATOPATHOLOGY LABORATORY Pathology/Cytology TISSUE SPECIMEN FROM SKIN / Unknown 10/08/2023 8:28 AM CLERICAL ASSIGNER 10/09/2023 9:12 AM CLERICAL ASSIGNER Miscellaneous samples (specimen) TISSUE SPECIMEN FROM SKIN / Unknown 10/08/2023 8:28 AM CLERICAL ASSIGNER 10/09/2023 9:12 AM CLERICAL ASSIGNER Miscellaneous samples (specimen) TISSUE SPECIMEN FROM SKIN / Unknown 10/08/2023 8:28 AM CLERICAL ASSIGNER 10/09/2023 9:12 AM CLERICAL ASSIGNER Anju Lyle MD LAB - PATHOLOGY/CYTOLOGY OR DERABLES Final Result DERMATOPATHOLOGY LABORATORY [facility] - Department of Dermatology [facility] Medicine [address] [place] [address], [address] [phone] documented in this encounter Visit Diagnoses Not on filedocumented in this encounter Care Teams Registered Travel Nurse Relationship Specialty Start Date End Date August Garrett MD [address] [place] [address] PCP - General Family Medicine 08/10/16 04/03/24 August Garrett MD [address] [place] [address] PCP - General Family Medicine 04/04/24 [place] [id number] [address] [address] Orthopedic Surgery 08/10/16 documented as of this encounter
--- OUTSIDE RECORDS SUMMARY | 2025-03-10 09:16 | XMS_ITS | Encounter Summary ---
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 PLANT Gender Identity Not on file Sexual Orientation Not on file documented as of this encounter Plan of Treatment Not on file documented as of this encounter Procedures Procedure Name Priority Date/Time Associated Diagnosis Comments SCAN - RADIOLOGY/IMAGING 08/08/2023 8:02 AM CABLE ENGINEER OUTSIDE PLANT documented in this encounter Results * SCAN - RADIOLOGY/IMAGING (08/08/2023 8:02 AM CABLE ENGINEER OUTSIDE PLANT) Anatomical Region Laterality Modality Other us Provider Scanning Final Result documented in this encounter Visit Diagnoses Not on filedocumented in this encounter Care Teams Customer Care Voice Consultant Relationship Specialty Start Date End Date August Garrett MD PCP - General 12/01/15 documented as of this encounter
--- NOTE | 2025-03-10 11:00 | NEURO_ITS ---
Impression: # Nguyen by profession complains of hand numbness ? # Bilateral Carpal Tunnel Syndrome on the right more than the left ? 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 # Left ulnar to median cross innervation Nerve Conduction Studies ?Stim Site NR Peak (ms) P-T Amp (?V) Site1 Site2 Delta-P (ms) Dist (cm) Breezy (m/s) Left Median Anti Sensory (2-3nd Digit) Wrist ? 4.0 19.3 Wrist 2-3nd Digit 4.0 14.0 35 Wrist ? 4.3 12.8 Wrist 2-3nd Digit 4.0 14.0 35 Right Median Anti Sensory (2-3nd Digit) Wrist ? 6.9 12.3 Wrist 2-3nd Digit 6.9 14.0 20 Wrist ? 5.8 7.0 Wrist 2-3nd Digit 6.9 14.0 20 Left Radial Anti Sensory (Base 1st Digit) Wrist ? 2.0 19.4 Wrist Base 1st Digit 2.0 0.0 Right Radial Anti Sensory (Base 1st Digit) Wrist ? 2.8 7.8 Wrist Base 1st Digit 2.8 0.0 Left Ulnar Anti Sensory (5th Digit) Wrist ? 3.1 36.1 Wrist 5th Digit 3.1 14.0 45 Right Ulnar Anti Sensory (5th Digit) Wrist ? 3.5 34.8 Wrist 5th Digit 3.5 14.0 40 ?Stim Site NR Onset (ms) O-P Amp (mV) Site1 Site2 Delta-0 (ms) Dist (cm) Breezy (m/s) Left Median Motor (Abd Poll Brev) Wrist ? 4.5 1.3 Elbow Wrist 5.3 35.0 66 Elbow ? 9.8 0.8 Right Median Motor (Abd Poll Brev) Wrist ? 4.8 0.5 Elbow Wrist 5.5 33.0 60 Elbow ? 10.3 0.5 Left Ulnar Motor (Abd Dig Minimi) Wrist ? 3.0 7.1 A Elbow Wrist 6.2 33.0 53 A Elbow ? 9.2 5.1 B Elbow Wrist 5.0 27.0 54 B Elbow ? 8.0 4.6 Right Ulnar Motor (Abd Dig Minimi) Wrist ? 3.1 5.3 A Elbow Wrist 6.7 34.0 51 A Elbow ? 9.8 4.0 B Elbow Wrist 5.2 25.0 48 B Elbow ? 8.3 3.2 Electromyography ?Side Muscle Nerve Root Ins Act Fibs Amp Dur Recrt Comment Right 1stDorInt Ulnar C8-T1 Nml Nml Nml Nml Nml Right Ext Indicis Radial (Post Int) C7-8 Nml Nml Nml Nml Nml Right Ext Digitorum Radial (Post Int) C7-8 Nml Nml Nml Nml Nml Right BrachioRad Radial C5-6 Nml Nml Nml Nml Nml Right PronatorTeres Median C6-7 Nml Nml Nml Nml Nml Right Abd Poll Brev Median C8-T1 Nml Nml Nml Nml Nml Right ABD Dig Min Ulnar C8-T1 Nml Nml Nml Nml Nml Right FlexPolLong Median (Ant Int) C7-8 Nml Nml Nml Nml Nml Right Abd Poll Long Radial (Post Int) C7-8 Nml Nml Nml Nml Nml Left 1stDorInt Ulnar C8-T1 Nml Nml Nml Nml Nml Left Ext Indicis Radial (Post Int) C7-8 Nml Nml Nml Nml Nml Left Ext Digitorum Radial (Post Int) C7-8 Nml Nml Nml Nml Nml Left BrachioRad Radial C5-6 Nml Nml Nml Nml Nml Left PronatorTeres Median C6-7 Nml Nml Nml Nml Nml Left Abd Poll Brev Median C8-T1 Nml Nml Nml Nml Nml Left ABD Dig Min Ulnar C8-T1 Nml Nml Nml Nml Nml Left FlexPolLong Median (Ant Int) C7-8 Nml Nml Nml Nml Nml Left Abd Poll Long Radial (Post Int) C7-8 Nml Nml Nml Nml Nml
== END 2025-03-10 09:08 | disposition home or self-care (01) ==
PROVIDERS: PCP Family Medicine; Visit Provider Nurse Practitioner Family
DX: G56.03 Carpal tunnel syndrome, bilateral upper limbs (principal); G56.23 Lesion of ulnar nerve, bilateral upper limbs
CPT/HCPCS: 95886; 95911

== ENCOUNTER 2025-05-05 12:25 | Outpatient (CLI) | payer MEDICARE, SELFPAY ==
--- NOTE | ~2025-05-05 | US_ITS ---
EXAMINATION: US carotid duplex BI DATE: 05/05/2025 13:08 INDICATION: Dizziness and giddiness TECHNIQUE: Grayscale, color Doppler, and pulsed Doppler images of the cervical carotid arteries were obtained. The degree of vessel stenosis is placed in one of the following categories: normal, <50%, 50-69%, >=70% but less than near- occlusion, near-occlusion, or total occlusion. Note that percent stenosis relative to normal distal artery lumen diameter is indirectly measured from velocity measurements as described by Ronn, et al. Radiology 2003; 229:340-346. Notes: Normal: Peak systolic velocity <125 centimeters/sec and no plaque <50%. Peak systolic velocity <125 (EDV <40; ICA/CCA PSV ratio <2.0; used these factors only a tandem lesions or low cardiac output or contralateral disease) 50-69 %: PSV 125-230 (EDV 40-100; ratio 2-4) >= 70% but less than near occlusion: PSV greater than 230 (EDV > 100; ratio> 4.0) Near Occlusion: PSV that is variable; markedly narrowed lumen Occlusion: Absent flow on color/spectral Doppler and no lumen on castillo scale. COMPARISON: None. FINDINGS: RIGHT: The right common carotid artery (CCA) peak systolic velocity (PSV) is 85 cm/s. The right internal carotid artery (ICA) PSV is 81 cm/s. The right ICA end- diastolic velocity (EDV) is 20 cm/s. The right ICA/CCA PSV ratio is 1.0. The external carotid artery (ECA) PSV is 158 cm/s. There is antegrade flow in the right vertebral artery. LEFT: The left CCA PSV is 92 cm/s. The left ICA PSV is 89 cm/s. The left ICA EDV is 18 cm/s. The left ICA/CCA PSV ratio is 1.0. The ECA PSV is 126 cm/s. There is antegrade flow in the left vertebral artery. IMPRESSION: 1. Less than 50% stenosis in the right internal carotid artery by sonographic criteria. 2. Less than 50% stenosis in the left internal carotid artery by sonographic criteria. Reviewed, dictated and finalized at location O. IMPRESSION: 1. Less than 50% stenosis in the right internal carotid artery by sonographic pineda welch. 2. Less than 50% stenosis in the left internal carotid artery by sonographic preet chen.
--- OUTSIDE RECORDS SUMMARY | 2025-05-05 12:28 | XMS_ITS | Clinical Summary ---
Author Organization [facility] Address [address] [facility] [place] [address] Care Team Providers Care Commodities Trader Name Role Phone August Garrett MD Primary Care Provider [phone] Allergies No known active allergies Medications citalopram [...] mouth daily 30 tablet 2 01/20/2025 Active meloxicam (MOBIC) 15 mg tablet Take 1 tablet (15 mg total) by mouth daily 30 tablet 2 01/20/2025 Active Active Problems Problem Noted Date Diagnosed Date Numbness of right hand 12/02/2024 LVH (left ventricular hypertrophy) 12/02/2024 Glenohumeral arthritis, left 08/08/2022 Anxiety 07/25/2022 Shoulder arthritis 05/24/2022 Overview (05/24/2022): Added automatically from request for surgery [id number] Localized, primary osteoarthritis of hand 2020 Pain in joint of right shoulder 01/03/2021 Overview (01/03/2021): Added automatically from request for surgery [id number] Biceps tendinitis of right upper extremity 01/03 Overview (01/03/2021): Added automatically from request for surgery [id number] Hyperlipidemia LDL goal <100 10/10/2019 KAREEN on [...] on file 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 Gender Identity Not on file Sexual Orientation Not on file Obstetrics History Last Filed Vital Signs Vital Sign Reading Time Taken Comments Blood Pressure 120/74 12/02/2024 3:04 PM CDT Pulse 90 12/02/2024 3:04 PM CDT Temperature 36.3 C (97.4 F) 08/09/2022 8:06 AM TOLL TEST DESK WORKER Respiratory Rate 15 08/09/2022 8:06 AM TOLL TEST DESK WORKER Oxygen Saturation 92% 12/02/2024 3:04 PM CDT [...] Fall Risk Assessment 08/09/2023 08/09/2022 Influenza Vaccine (#1) 2025 2, 07/10/2017, 08/15/2014, Additional history exists Zoster Vaccine Completed 10/07/2018, 06/17/2018 Medical Devices Implanted Type Area Master Plumber Device Identifier Shelf Expiration Date Model / Serial / Lot Rt Knee Knee [employer] Ar-2324 Bcm Swivelock 4.75mm 24.5mm Self Punch Vent Shoulder [place] Suture - [id number] Implanted:Qty: 1 on 03/03/2021 by Jayy Long MD at [facility] Right: Shoulder [employer] 12/01/2024 [id number] / / [id number] [employer] Ar-3670 Set Implant Arthrex Fibertak Biceps Sterile Latex Free - [id number] Implanted:Qty: 1 on 03/03/2021 by Jayy Long MD at [facility] Right: Shoulder [employer] 06/02/2025 AR-3670 / / [id number] [employer] Simplex P Radiopaque Full Dose Cement Bone Sterile 6191-1-010 - [id number] Implanted:Qty: 1 on 08/08/2022 by Jayy Long MD at [facility] 12/31/2024 6191-1-010 / / [id number] [employer] [place] 2 Peg Monoblock Shoulder 4 Component Glenoid Sterile [id number] - [id number] Implanted:Qty: 1 on 08/08/2022 by Jayy Long MD at [facility] [employer] 01/01/2028 [id number] / / [id number] [employer] Humeral [place] Shoulder Sidus [id number] 0 [id number] - [id number] Implanted:Qty: 1 on 08/08/2022 by Jayy Long MD at [facility] Left: Acromial Process [employer] 2031 [id number] / / [id number] [employer] Sidus Od48 Mm H17 Mm Stem Free Shoulder Head Humeral Sterile Latex Free [id number] - [id number] Implanted:Qty: 1 on 08/08/2022 by Jayy Long MD at [facility] Left: Shoulder [employer] 09/22/2031 [id number] / / [id number] Insurance MEDICARE [facility] Address: [address] [address] [place] [address] [facility] MEDICARE [facility] MEDICARE [facility] Advance Directives For more information, please contact: [phone] * Full Code (Latest Code Status on File) Date Activated Date Inactivated Comments 08/08/2022 1:46 PM 08/09/2022 3:11 PM Care Teams Commodities Trader Relationship Specialty Start Date End Date August Garrett MD PCP - General 12/01/15
--- OUTSIDE RECORDS SUMMARY | 2025-05-05 12:28 | XMS_ITS | Encounter Summary ---
Author Organization [facility] Address [address] [place] [address] Care Team Providers Care Telecommunications Facility Examiner Name Role Phone Brian Bautista MD Unavailable [phone] August Garrett MD Primary Care Provider [phone] August Garrett MD Primary Care Provider [phone] Encounter Details Date Type Department Care Team (Late st Contact Info) Description 08/12/2020 Lab Requisition [facility] DermPath Lab [address] [facility], [place] [address] Anju Lyle MD [address] [facility] 3 [place] [address] Social History Tobacco Use Types Packs/Day Years Used Date Smoking Tobacco: Never Alcohol Use Standard Drinks/Week Comments Yes 0 (1 standard drink = 0.6 oz pur e alcohol) Sex and Gender Information Value Date Recorded Sex Assigned at Not on file Legal Sex Male 5:01 AM REHABILITATION COUNSELLOR Gender Identity Not on file Sexual Orientation Not on file documented as of this encounter Plan of Treatment Not on file documented as of this encounter Procedures Procedure Name Priority Date/Time Associated Diagnosis Comments DERMATOPATHOLOGY Routine 08/12/2020 12:0 0 AM REHABILITATION COUNSELLOR documented in this encounter Results * DERMATOPATHOLOGY (08/12/2020 12:00 AM REHABILITATION COUNSELLOR) Case Report Dermatopathology Report Case: [id number] Authorizing Provider: Anju Lyle MD Collected: 08/12/2020 12:00 AM Ordering Location: [facility] DermPath Lab Received: 08/12/2020 11:24 AM Pathologist: Tom Correa MD Specimen: Skin, right FH scalp 0 4:02 PM REHABILITATION COUNSELLOR DERMATOPATHOLOGY LABORATORY Final Diagnosis Specimen A. SKIN, right FH scalp: ACTINIC KERATOSIS, LICHENOID (L57.0) POST-INFLAMMATORY PIGMENT ALTERATION (L81.9) 0 4:02 PM [facility] DERMATOPATH[facility]Y LABORATORY at [address]2 REHABILITATION COUNSELLOR Clinical History R/O pig BCC, irregular color. 0 4:02 PM [facility]ERMATOPATH[facility]ORAT[facility] Gross Description Specimen A: Received is one formalin filled container labeled with the patient's name and designated right FH scalp. The specimen consists of a shave measuring [id number]. Jar 0. 0 4:02 PM [facility]ERMATOPATH[facility]ORAT[facility] Microscopic Description Specimen A. SKIN, right FH scalp: There is focal parakeratosis. The lower half of the epidermis shows disorderly maturation of keratinocytes with nuclear pleomorphism. The dermis shows a band-like, chronic inflammatory infiltrate with occasional apoptotic keratinocytes and some basal vacuolar alteration. Sections show abundant melanin within melanophages around the superficial vascular plexus. 0 4:02 PM [facility]ERMATOPATH[facility]ORAT[facility] Disclaimer An external and internal [...] purposes. Billing Codes Specimen Charges Stain Charges 60771 1 0 4:02 PM REHABILITATION COUNSELLOR DERMATOPATHOLOGY LABORATORY Embedded Images 0 4:02 PM [facility]ERMATOPATH[facility] Pathology/Cytolog y TISSUE SPECIMEN FROM SKIN / Unknown 08/12/2020 08/12/2020 11:24 AM REHABILITATION COUNSELLOR Anju Lyle MD LAB - PATHOLOGY/CYTOLOGY OR DERABLES Final Result DERMATOPATHOLOGY LABORATORY [facility] - Department of Dermatology [facility] Medicine [address] [facility], 3rd Floor [address] [phone] documented in this encounter Visit Diagnoses Not on filedocumented in this encounter Care Teams Telecommunications Facility Examiner Relationship Specialty Start Date End Date August Garrett MD [address] [place] [address] PCP - General Family Medicine 08/10/16 04/03/24 August Garrett MD [address] [place] [address] PCP - General Family Medicine 04/04/24 [place] [id number] [address] [address] Orthopedic Surgery 08/10/16 documented as of this encounter
--- OUTSIDE RECORDS SUMMARY | 2025-05-05 12:28 | XMS_ITS | Clinical Summary ---
Author Organization [facility] Address [facility] [place] [address] Care Team Providers Care Seafood Service Team Member Name Role Phone Unavailable Primary Care Provider [...] Vaccines (1 of 2) 2005 COVID-19 Vaccine (1 - 2023-2 5 season) 2025 RSV Immunization or 60+ Years (1 - [...]
--- OUTSIDE RECORDS SUMMARY | 2025-05-05 12:28 | XMS_ITS | Encounter Summary ---
Author Organization [facility] Address [address] [facility] [place] [address] Care Team Providers Care Marine Pipefitter Name Role Phone Brian Bautista MD Unavailable [phone] August Garrett MD Primary Care Provider [phone] August Garrett MD Primary Care Provider [phone] Encounter Details Date Type Department Care Team (Late Contact [facility]) Description 10/08/2023 Lab Requisition [facility] - DermPath Lab [address] [facility] [place] [facility], [place] [address] Anju Lyle MD [address] [facility] 3 [place] [address] Social History Tobacco Use Types Packs/Day Years Used Date Smoking Tobacco: Never Alcohol Use Standard Drinks/Week Comments Yes 0 (1 standard drink = 0.6 oz pur e alcohol) Sex and Gender Information Value Date Recorded Sex Assigned at Not on file Legal Sex Male 5:01 AM SALVATIONIST Gender Identity Not on file Sexual Orientation Not on file documented as of this encounter Plan of Treatment Not on file documented as of this encounter Procedures Procedure Name Priority Date/Time Associated Diagnosis Comments DERMATOPATHOLOGY Routine 10/08/2023 8:28 AM SALVATIONIST documented in this encounter Results * DERMATOPATHOLOGY (10/08/2023 8:28 AM SALVATIONIST) Case Report Dermatopathology Report Case: [id number] Authorizing Provider: Anju Lyle MD Collected: 10/08/2023 08:28 AM Ordering Location: [facility] DermPath Lab Received: 10/09/2023 09:12 AM Pathologist: Yessica Figueroa MD Specimens: A) - Skin, central chest B) - Skin, right upper cheek C) - Skin, left sideburn 1:47 PM [facility] DERMATOPATHOLOGY LABORATORY Final Diagnosis Specimen A. SKIN, central chest: BASAL CELL CARCINOMA, NODULAR TYPE (C44.519) Specimen B. SKIN, right upper cheek: BASAL CELL CARCINOMA, NODULAR TYPE (C44.319) Specimen C. SKIN, left sideburn: SEBORRHEIC KERATOSIS, INFLAMED (L82.0) 1:47 PM [facility] DERMATOPATHOLOGY LABORATORY at 1347 SALVATIONIST Clinical History A-C: BCC 1:47 PM [facility] DERMATOPATHOLOGY LABORATORY Gross Description Specimen A: Received [...] measuring 8x6x1 mm. Jar 0. 1:47 PM [facility] DERMATOPATHOLOGY LABORATORY Microscopic Description Specimen A. SKIN, [...] dermis that is focally lichenoid. 1:47 PM [facility] DERMATOPATHOLOGY LABORATORY Disclaimer An external and internal positive and negative controls are appropriate for the histochemical, immunohistochemical and immunofluorescence stain(s) in this case (if any), except where stated explicitly. The performance characteristics of the stain(s) cited in this report were developed and its performance characteristic determined by the Dermatopathology Laboratory at [facility], directed by Dr. Hunter Correa. These tests need not be, and therefore are not, approved by the [place] Food and Drug Administration. The tests are used for clinical purposes. Billing Codes Specimen Charges Stain Charges 46709 71221 51285 1 1 1 4 1:47 PM SALVATIONIST DERMATOPATHOLOGY LABORATORY Embedded Images 4 1:47 PM SALVATIONIST DERMATOPATHOLOGY LABORATORY Pathology/Cytology TISSUE SPECIMEN FROM SKIN / Unknown 10/08/2023 8:28 AM SALVATIONIST 10/09/2023 9:12 AM SALVATIONIST Miscellaneous samples (specimen) TISSUE SPECIMEN FROM SKIN / Unknown 10/08/2023 8:28 AM SALVATIONIST 10/09/2023 9:12 AM SALVATIONIST Miscellaneous samples (specimen) TISSUE SPECIMEN FROM SKIN / Unknown 10/08/2023 8:28 AM SALVATIONIST 10/09/2023 9:12 AM SALVATIONIST Anju Lyle MD LAB - PATHOLOGY/CYTOLOGY OR DERABLES Final Result DERMATOPATHOLOGY LABORATORY [facility] - Department of Dermatology [facility] Medicine [address] [place] [address], [address] [phone] documented in this encounter Visit Diagnoses Not on filedocumented in this encounter Care Teams Marine Pipefitter Relationship Specialty Start Date End Date August Garrett MD [address] [place] [address] PCP - General Family Medicine 08/10/16 04/03/24 August Garrett MD [address] [place] [address] PCP - General Family Medicine 04/04/24 [place] [id number] [address] [address] Orthopedic Surgery 08/10/16 documented as of this encounter
--- OUTSIDE RECORDS SUMMARY | 2025-05-05 12:28 | XMS_ITS | Encounter Summary ---
Author Organization [facility] Address [address] [place] [address] Care Team Providers Care Project Coordinator Name Role Phone Brian Bautista MD Unavailable [phone] August Garrett MD Primary Care Provider [phone] August Garrett MD Primary Care Provider [phone] Encounter Details Date Type Department Care Team (Late st Contact Info) Description 07/04/[address] [facility] DermPath Lab [address] [facility], [place] [address] Anju Lyle MD [address] 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 DermPath Lab Received: 07/04/2019 11:45 AM Pathologist: Tom Correa MD Specimen: Skin, right anterior shoulder 12:57 PM CDT DERMATOPATHOLOGY LABORATORY Clinical History R/O BCC, irritated. 12:57 PM CDT DERMATOPATHOLOGY LABORATORY Gross Description Specimen A: Received is one formalin filled container labeled with the patient's name and designated right anterior shoulder. The specimen consists of a shave measuring [id number]. Jar 0. [facility] Dermatopathology Laboratory performed the technical component [...] determined by the Dermatopathology Laboratory at [facility], directed by Dr. Hunter Correa. These tests need not be, and therefore are not, approved by the [place] Food and Drug Administration. The tests are used for clinical purposes. 12:57 PM CDT DERMATOPATHOLOGY LABORATORY at [address] [place] [address] Pathology/Cytolog y TISSUE SPECIMEN FROM SKIN / Unknown 07/04/2019 07/04/2019 11:45 AM CDT Anju Lyle MD LAB - PATHOLOGY/CYTOLOGY OR DERABLES Final Result DERMATOPATHOLOGY LABORATORY [facility] - Department of Dermatology [facility] [facility], 5th [place] [address], [facility] [phone] documented in this encounter Visit Diagnoses Not on filedocumented in this encounter Care Teams Project Coordinator Relationship Specialty Start Date End Date August Garrett MD [address] [place] [address] PCP - General Family Medicine 08/10/16 04/03/24 August Garrett MD [address] [place] [address] PCP - General Family Medicine 04/04/24 [place] [address] [address] Orthopedic Surgery 08/10/16 documented as of this encounter
--- OUTSIDE RECORDS SUMMARY | 2025-05-05 12:28 | XMS_ITS | Encounter Summary ---
Author Organization [facility] Healthcare Address [address] [place] [address] Care Team Providers Care Artificial Limb Fitter Name Role Phone August Garrett MD Primary Care Provider [phone] Encounter Details Date Type Department Care Team (Late st Contact Info) Description 07/24/2022 Treatment [facility] PATHOLOGY [address] [facility] [address] [place] [address] Manish Dejesus MD [facility] [address] [facility] [id number] [place] [address] Social History Tobacco Use Types Packs/Day Years [...] on file Legal Sex Male 12:44 AM RESIDENTIAL ASSISTANT Gender Identity Not on file Sexual Orientation [...] this patient. Contact Information: Please contact the [facility] Blood Bank with any questions. This report has been prepared by: Manish Dejesus MD Cosigned by Leslie Beebe MD PhD at 07/26/2022 4:21 PM RESIDENTIAL ASSISTANT DENTIAL ASSISTANT DENTIAL ASSISTANT DENTIAL ASSISTANT DENTIAL ASSISTANT Associated attestation - Leslie Beebe MD PhD - 07/26/2022 4:21 PM RESIDENTIAL ASSISTANT Attestation: I have personally reviewed the antibody result and agree with the interpretation contained in this written blood bank report. Leslie Beebe MD PhD documented in this encounter Plan of Treatment Not on file documented as of this encounter Visit Diagnoses Not on filedocumented in this encounter Care Teams Artificial Limb Fitter Relationship Specialty Start Date End Date August Garrett MD PCP - General 12/01/15 documented as of this encounter
--- OUTSIDE RECORDS SUMMARY | 2025-05-05 12:28 | XMS_ITS | Encounter Summary ---
Author Organization [facility] Address [address] [place] [address] Phone Care Team Providers Care Network Control Supervisor Name Role Phone August Garrett MD Primary Care Provider [phone] Encounter Details Date Type Department Care Team [...] on file Legal Sex Male 12:44 AM COLLECTION SUPERVISOR Gender Identity Not on file Sexual Orientation Not on file documented as of this encounter Plan of Treatment Not on file documented as of this encounter Procedures Procedure Name Priority Date/Time Associated Diagnosis Comments SCAN - RADIOLOGY/IMAGING 08/08/2023 8:02 AM COLLECTION SUPERVISOR documented in this encounter Results * SCAN - RADIOLOGY/IMAGING (08/08/2023 8:02 AM COLLECTION SUPERVISOR) Anatomical Region Laterality Modality Other us Provider Scanning Final Result documented in this encounter Visit Diagnoses Not on filedocumented in this encounter Care Teams Network Control Supervisor Relationship Specialty Start Date End Date August Garrett MD PCP - General 12/01/15 documented as of this encounter
--- OUTSIDE RECORDS SUMMARY | 2025-05-05 12:28 | XMS_ITS | Clinical Summary ---
Author Organization [facility] Address [address] [facility] [address] [place] [address] Care Team Providers Care Conceptor Name Role Phone Brian Bautista MD Unavailable August Garrett MD Primary Care Provider [phone] Source Comments [facility],non-owned Affiliates and Associated Physician Practices is amultiple site organization consisting of ambulatory clinics and hospital sitesin [place], [place], [place] and [place]. This disclosure is being madepursuant to the Care Everywhere program and may not contain all information available regarding this patient. Last updated 18.[facility] Allergies No known active allergies Medications * [...] on file Legal Sex Male 5:01 AM APPOINTMENT CLERK Gender Identity Not on file Sexual [...] 2005 ZOSTER VACCINE (1 of 2) 2005 SCREENING FOR DIABETES 05/16/2024 DEPRESSION SCREENING 09/03/2024 COVID-19 VACCINE (1 - season) 2025 INFLUENZA VACCINE (#1) 2025 2, 07/10/2017, 08/15/2014, [...] patient's age to complete this topic [place] [id number] [facility] MEDICARE [facility] Care Teams Conceptor Relationship Specialty Start Date End Date August Garrett MD [address] [place] [address] PCP - General Family Medicine 04/04/24 [place] [address] [place] [address] Orthopedic Surgery 08/10/16
--- OUTSIDE RECORDS SUMMARY | 2025-05-05 12:28 | XMS_ITS | Encounter Summary ---
Author Organization [facility] Address [address] [facility] [address] Care Team Providers Care Circular Saw Operator Name Role Phone Brian Bautista MD Unavailable [phone] August Garrett MD Primary Care Provider [phone] August Garrett MD Primary Care Provider [phone] Encounter Details Date Type Department Care Team (Late st Contact Info) Description 10/01/2019 Lab Requisition [facility] DermPath Lab [address] [facility] [place] [address] Anju Lyle MD [address] [facility] 3 [place] [address] Social History Tobacco Use Types Packs/Day Years Used Date Smoking Tobacco: Never Alcohol Use Standard Drinks/Week Comments Yes 0 (1 standard drink = 0.6 oz pur e alcohol) Sex and Gender Information Value Date Recorded Sex Assigned at Not on file Legal Sex Male 5:01 AM BULKING MACHINE OPERATOR Gender Identity Not on file Sexual Orientation Not on file documented as of this encounter Plan of Treatment Not on file documented as of this encounter Procedures Procedure Name Priority Date/Time Associated Diagnosis Comments DERMATOPATHOLOGY Routine 09/30/2019 12:0 0 AM BULKING MACHINE OPERATOR documented in this encounter Results * DERMATOPATHOLOGY (09/30/2019 12:00 AM BULKING MACHINE OPERATOR) Case Report Dermatopathology Report Case: [id number] Authorizing Provider: Anju Lyle MD Collected: 09/30/2019 12:00 AM Ordering Location: [facility] DermPath Lab Received: 10/01/2019 08:10 AM Pathologist: Tom Correa MD Specimen: Skin, left ant shoulder 0 4:12 PM [facility] DERMATOPATHOLOGY LABORATORY Amended Report Changed site from left ant shoulder to right ant shoulder. 0 4:12 PM [facility] DERMATOPATHOLOGY LABORATORY Final Diagnosis Specimen A. SKIN, right ant shoulder: DERMAL SCAR RESIDUAL BASAL CELL CARCINOMA NOT IDENTIFIED (L90.5) 0 4:12 PM [facility] DERMATOPATHOLOGY LABORATORY Amendment electronically signed by Tom Correa MD on 10/06/2019 at 1612 BULKING MACHINE OPERATOR at 1329 BULKING MACHINE OPERATOR Clinical History R/O BCC, biopsy proven. 0 4:12 PM [facility] DERMATOPATHOLOGY LABORATORY Gross Description Specimen A: Received is one formalin filled container labeled with the patient's name and designated right ant shoulder. The specimen consists of a non-oriented ellipse of skin measuring [id number]. The epidermal surface consists of a centrally located 5x5mm previous biopsy site. The margin is inked green. The 12 o'clock and 6 o'clock tips are submitted in cassette 1. The remainder of the ellipse is serially sectioned and submitted in cassettes 2-4. Jar 0. 0 4:12 PM [facility] DERMATOPATHOLOGY LABORATORY Microscopic Description Specimen A. SKIN, right ant shoulder: There are fibroblasts and collagen bundles oriented parallel to the skin surface. There are elongated blood vessels, some of which are oriented perpendicular to the skin surface. No basal cell carcinoma is identified. 0 4:12 PM [facility] DERMATOPATHOLOGY LABORATORY Disclaimer An external and internal [...] purposes. Billing Codes Specimen Charges Stain Charges 41896 1 0 4:12 PM [facility] DERMATOPATHOLOGY LABORATORY Embedded Images 0 4:12 PM [facility] DERMATOPATHOLOGY LABORATORY Pathology/Cytolog y TISSUE SPECIMEN FROM SKIN / Unknown 09/30/2019 10/01/2019 8:10 AM BULKING MACHINE OPERATOR Anju Lyle MD LAB - PATHOLOGY/CYTOLOGY OR DERABLES Edited Result - Final DERMATOPATHOLOGY LABORATORY [facility] - Department of Dermatology [address] [place] [address], [address] [phone] documented in this encounter Visit Diagnoses Not on filedocumented in this encounter Care Teams Circular Saw Operator Relationship Specialty Start Date End Date August Garrett MD [address] [place] [address] PCP - General Family Medicine 08/10/16 04/03/24 August Garrett MD [address] [place] [place] [address] PCP - General Family Medicine 04/04/24 [place] [address] [address] [address] Orthopedic Surgery 08/10/16 documented as of this encounter
--- OUTSIDE RECORDS SUMMARY | 2025-05-05 12:28 | XMS_ITS | Encounter Summary ---
Author Organization [facility] Address [address] [facility] [place] [address] Care Team Providers Care Portfolio Architect Name Role Phone Brian Bautista MD Unavailable [phone] August Garrett MD Primary Care Provider [phone] August Garrett MD Primary Care Provider [phone] Encounter Details Date Type Department Care Team (Late st Contact Info) Description 02/10/2020 Lab Requisition [facility] DermPath Lab [address] [facility], [place] [address] Anju Lyle MD [address] [facility] 3 [place] [address] Social History Tobacco Use Types Packs/Day Years Used Date Smoking Tobacco: Never Alcohol Use Standard Drinks/Week Comments Yes 0 (1 standard drink = 0.6 oz pur e alcohol) Sex and Gender Information Value Date Recorded Sex Assigned at Not on file 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 Sex 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 Gender Identity Not on file Sexual Orientation Not on file documented as of this encounter Plan of Treatment Not on file documented as of this encounter Procedures Procedure Name Priority Date/Time Associated Diagnosis Comments DERMATOPATHOLOGY Routine 02/10/2020 12:0 0 AM CDT documented in this encounter Results * DERMATOPATHOLOGY (02/10/2020 12:00 AM CDT) Case Report Dermatopathology Report Case: [id number] Authorizing Provider: Anju Lyle MD Collected: 02/10/2020 12:00 AM Ordering Location: [facility] DermPath Lab Received: 02/10/2020 11:22 AM [...] characteristic determined by the Dermatopathology Laboratory at [facility], directed by Dr. Hunter Correa. These tests need not be, and therefore are not, approved by the [place] Food and Drug Administration. The tests are used for clinical purposes. Billing Codes Specimen Charges Stain Charges 21833 1 0 1:52 PM CDT DERMATOPATHOLOGY LABORATORY Embedded Images 0 1:52 PM CDT DERMATOPATHOLOGY LABORATORY Pathology/Cytolog y TISSUE SPECIMEN FROM SKIN / Unknown 02/10/2020 02/10/2020 11:22 AM CDT us Anju Lyle MD LAB - PATHOLOGY/CYTOLOGY OR DERABLES Final Result DERMATOPATHOLOGY LABORATORY [facility] - Department of Dermatology [employer] [place]/[address] [phone] documented in this encounter Visit Diagnoses Not on filedocumented in this encounter Care Teams Portfolio Architect Relationship Specialty Start Date End Date August Garrett MD [address] [place] [address] PCP - General Family Medicine 08/10/16 04/03/24 August Garrett MD [address] [place] [address] PCP - General Family Medicine 04/04/24 [place] [address] [address] Orthopedic Surgery 08/10/16 documented as of this encounter
== END 2025-05-05 12:26 | disposition home or self-care (01) ==
LOC: ANHIMG 12:26
PROVIDERS: PCP Family Medicine; Visit Provider Physician Assistant Medical
DX: I65.23 Occlusion and stenosis of bilateral carotid arteries (principal); R42 Dizziness and giddiness
CPT/HCPCS: 93880

== ENCOUNTER 2025-06-06 08:06 | Emergency (ER) | payer MEDICARE, SELFPAY ==
--- NOTE | 2025-06-06 08:07 | ED.SKABFB ---
HPI - Skin/Abscess/Foreign Bdy General Chief complaint: Skin/Abscess/Foreign Body Stated complaint: blister,left arm Time Seen by Provider: 06/06/25 08:07 Source: patient Mode of arrival: ambulatory Limitations: no limitations History of Present Illness HPI narrative: Patient is a 69-year-old male who presents with redness, sores and slight itching for 3 days. Patient states he was doing yd work and trimmed branch. Tremor and fell and scraped his arm. States it is now red and warm to touch. Denies any fever, chills, nausea, vomiting, diarrhea. Related Data Home Medications ?Medication ?Instructions ?Recorded ?Confirmed ?Last Taken ?Type meloxicam 15 mg tablet mg PO DAILY 02/04/25 04/02/25 Unknown History Allergies Allergy/AdvReac Type Severity Reaction Status Date / Time No Known Allergies Allergy Verified 06/06/25 08:07 Review of Systems Review of Systems: All systems reviewed & are unremarkable except as noted in HPI and below Constitutional: Constitutional: Denies body ache(s), Denies chills, Denies fatigue, Denies fever(s), Denies headache(s), Denies malaise and Denies weakness Eyes: Eyes: Denies blurry vision, Denies irritation and Denies loss of vision ENT: Denies otalgia, Denies headache(s), Denies nasal discharge, Denies sinus pain and Denies sore throat Cardiovascular: Cardiovascular: Denies chest pain, Denies irregular heart rhythm and Denies dyspnea Respiratory: Respiratory: Denies dyspnea Gastrointestinal: Gastrointestinal: Denies abdominal pain, Denies melena, Denies hematochezia, Denies diarrhea, Denies nausea and Denies vomiting Musculoskeletal: Musculoskeletal: Denies back pain, Denies myalgias and Denies arthralgias Integumentary/Breasts: Skin/Breast: Denies pruritus, Reports erythema, Denies rash and Reports wounds Neurologic: Denies headache(s), Denies loss of vision and Denies weakness Psychiatric: Psychiatric: Reports no additional psychiatric complaints Endocrine: Endocrine: Denies fatigue PMFSH Past Medical History Medical History Dizziness Cubital tunnel syndrome, bilateral Bilateral carpal tunnel syndrome Frequent headaches Screening for measles Right wrist pain Lumbar pain Allergic rhinitis Hypertrophy of both inferior nasal turbinates Nasal septal deviation Nasal obstruction Cerumen impaction Foreign body Otitis externa Sinus congestion Fracture of distal phalanx of left middle finger Tennis elbow Acute viral sinusitis Head congestion BMI 31.0-31.9,adult History of stress test Closed fracture of radial styloid Acute sinusitis Screening for malignant neoplasm of prostate Nasal congestion Numbness and tingling Rotator cuff injury Sleep apnea Chronic pain of right knee Surgical History Surgical History History of right knee joint replacement Hx of rotator cuff surgery Family History Family History Mother Hypertension Father Family history of coronary artery disease Family history of throat cancer Sibling , colon cancer Pancreatic cancer Sibling No problems noted. Other Family history of malignant neoplasm Social History Social History Smoking status: Never smoker Second hand tobacco smoke exposure: Yes Alcohol intake: current Drinks per week: 2 Substance use: never Substance use type: does not use Do You Feel Safe in your Home?: Yes Lack of Transportation: No Lack of Food: Never True Current Housing: I Have Housing Concerned About Future Housing: No Difficulty Paying Gas/Electric Bills: No Difficulty Paying for Meds: No Currently Unemployed: No Education: Associate Degree Difficulty w/ Childcare or Family Care: No Living arrangements: with family Occupation/Education: retired Additional occupation/education comments: [employer] Gender identity (if verbalized by the patient): Male Comments At time of signature, agree with nursing past medical, surgical, social and family history. There is no relevant family history pertinent to the presenting complaint. Exam Const: General: cooperative, healthy appearing, comfortable, no acute distress and well nourished Nutritional Appearance: well nourished Orientation/consciousness: patient oriented x3 Limitations: no limitations HENMT: Head: normal to inspection, normocephalic and atraumatic Ears: hearing grossly normal bilaterally and external ears normal Face/Nose/Sinus: Normal external nose present, normal facial exam and face symmetric Face and sinus: normal facial exam and face symmetric Mouth: Yes lip normal Eyes: General: appearance normal, both eyes and all related structures Alignment and Position: alignment normal and position normal Periorbital: periorbital findings normal Eyelids: eyelids normal Pupils: Equal, round and reactive pupils present EOM: EOMs intact bilaterally Neck: Neck: normal visual inspection, full ROM and supple Chest: Chest palpation & inspection: normal inspection of the chest Resp: Effort & Inspection: normal respiratory effort and able to speak in complete sentences Auscultation: clear to auscultation bilaterally Cardio: Rate: regular rate Rhythm: regular rhythm Heart sounds: S1 normal heart sound present and S2 normal heart sound present GI: Inspection: normal to inspection Skin: General skin exam: normal color and no rashes or lesions noted Full body images:  1. Two skin tear areas 1 cm x 1.5 cm with surrounding erythema and warmth Neuro: General: patient oriented x3 and moves all extremities Cranial nerves: Yes Equal, round and reactive pupils present Speech: normal speech Gait exam (Neuro): Normal gait present Extrem: General: normal to inspection, full ROM and no edema Psych: Appearance: grossly normal and well kempt Mental Status: mental status grossly normal Speech and movement: Normal speech and movement present Affect: normal affect Attitude: cooperative Thought process: Normal thought process present Course Course Emergency Course: Patient is aware of diagnosis, understands and agrees to treatment plan. Anticipatory guidance given. Patient agrees to follow-up as directed and is aware of reasons to seek care at the emergency department. Portions of this record may have been created with voice recognition software Level of Care: Express Care Visit Vital Signs Vital signs: Reviewed MDM - Skin/Abscess/Foreign Bdy MDM Narrative Medical decision making narrative: Pt well hydrated appearing, in no respiratory distress, hemodynamically stable. Recommend supportive care. The patient is stable at time of discharge the clinical impression was discussed and the patient was given the opportunity to ask questions, which were addressed as completely as possible given the information available at present. Anticipatory guidance and return to care precautions were discussed and the importance of primary care follow-up was stressed and encouraged. The patient voiced understanding of the plan, indications to return, and the need for follow-up. Exam findings show no acute concerns or changes Patient is appropriate for outpatient treatment and follow-up. Differential Diagnosis Differential diagnosis: Likely viral exanthem, urticaria, herpes zoster, cellulitis, insect bites and contact dermatitis Medical Records Attestation: I reviewed the patient's medical records. Discharge Plan Discharge Clinical Impression: Cellulitis Qualifiers: Site of cellulitis: extremity Site of cellulitis of extremity: upper extremity Laterality: left Qualified Code(s): L03.114 - Cellulitis of left upper limb Patient Disposition: Home Condition: Stable Instructions: Cellulitis (ED) Additional Instructions: Please follow up with your Primary Care Doctor within 48-72 hours - call for an appointment. Rest and elevate affected area; apply moist heat 3-4 times daily for 10-15 minutes. Clean with soap and water only; Avoid using alcohol and peroxide. Elevate the affected area if possible Please take Antibiotics as directed. For pain, you may take: Tylenol 650-1000mg by mouth every 4-6 hours. Do not exceed 4000mg in 24 hours. Advil (Ibuprofen) 600 mg by mouth every 6 hours. Do not exceed 2400mg in 24 hours. 8 AM: Tylenol 11 AM: Ibuprofen 2 PM: Tylenol 5 PM: Ibuprofen 8 PM: Tylenol 11 PM: Ibuprofen 2 AM: Tylenol 5 AM: Ibuprofen If you experience any worsening redness, swelling, streaking (red lines), fever or chills please go to the ER Patient Language: Tunisian Prescriptions: New cephalexin 500 mg capsule 500 mg PO QID 7 Days Qty: 28 0RF mupirocin 2 % ointment 1 applic topical BID Qty: 15 0RF No Action meloxicam 15 mg tablet PO DAILY meclizine 25 mg tablet 25 mg PO BID PRN (Reason: dizziness) Qty: 30 0RF famotidine 20 mg tablet 20 mg PO DAILY Qty: 90 1RF atorvastatin 40 mg tablet See Rx Instructions .ROUTE .COMPLEX Qty: 90 0RF Dose Instruction: TAKE 1 TABLET BY MOUTH DAILY Rx Instructions: TAKE 1 TABLET BY MOUTH DAILY citalopram 40 mg tablet See Rx Instructions .ROUTE .COMPLEX Qty: 90 0RF Dose Instruction: TAKE 1 TABLET BY MOUTH DAILY Rx Instructions: TAKE 1 TABLET BY MOUTH DAILY Follow-up/Referrals: August Garrett MD [Primary Care Provider, Family Practice] - 3 Days Time of Disposition: 08:30
--- OUTSIDE RECORDS SUMMARY | 2025-06-06 08:08 | XMS_ITS | Encounter Summary ---
Author Organization [facility] Address [address] [address] Care Team Providers Care Harness Repairer Name Role Phone Brian Bautista MD Unavailable [phone] August Garrett MD Primary Care Provider [phone] August Garrett MD Primary Care Provider [phone] Encounter Details Date Type Department Care Team (Late Contact [facility]) Description 10/08/2023 Lab Requisition [facility] - DermPath Lab [address] [facility] [place] [address] Anju Lyle MD [address] [facility] [address] [place] [address] Social History Tobacco Use Types Packs/Day Years Used Date Smoking Tobacco: Never Alcohol Use Standard Drinks/Week Comments Yes 0 (1 standard drink = 0.6 oz pur e alcohol) Sex and Gender Information Value Date Recorded Sex Assigned at Not on file Legal Sex Male 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 Gender Identity Not on file Sexual Orientation Not on file documented as of this encounter Plan of Treatment Not on file documented as of this encounter Procedures Procedure Name Priority Date/Time Associated Diagnosis Comments DERMATOPATHOLOGY Routine 10/08/2023 8:28 AM PROGRAM THERAPIST documented in this encounter Results * DERMATOPATHOLOGY (10/08/2023 8:28 AM PROGRAM THERAPIST) Case Report Dermatopathology Report Case: [id number] Authorizing Provider: Anju Lyle MD Collected: 10/08/2023 08:28 AM Ordering Location: [facility] DermPath Lab Received: 10/09/2023 09:12 AM Pathologist: Yessica Figueroa MD Specimens: A) - Skin, central chest B) - Skin, right upper cheek C) - Skin, left sideburn 1:47 PM [facility] DERMATOPATHOLOGY LABORATORY Final Diagnosis Specimen A. SKIN, central chest: BASAL CELL CARCINOMA, NODULAR TYPE (C44.519) Specimen B. SKIN, right upper cheek: BASAL CELL CARCINOMA, NODULAR TYPE (C44.319) Specimen C. SKIN, left sideburn: SEBORRHEIC KERATOSIS, INFLAMED (L82.0) 1:47 PM [facility] DERMATOPATHOLOGY LABORATORY at 1347 PROGRAM THERAPIST Clinical History A-C: BCC 1:47 PM [facility] DERMATOPATHOLOGY LABORATORY Gross Description [...] measuring 8x6x1 mm. Jar 0. 1:47 PM [facility] DERMATOPATHOLOGY LABORATORY Microscopic Description [...] dermis that is focally lichenoid. 1:47 PM [facility] DERMATOPATHOLOGY LABORATORY Disclaimer An external and internal positive and negative controls are appropriate for the histochemical, immunohistochemical and immunofluorescence stain(s) in this case (if any), except where stated explicitly. The performance characteristics of the stain(s) cited in this report were developed and its performance characteristic determined by the Dermatopathology Laboratory at [facility], directed by Dr. Hunter Correa. These tests need not be, and therefore are not, approved by the [place] Food and Drug Administration. The tests are used for clinical purposes. Billing Codes Specimen Charges Stain Charges 86711 23529 54671 1 1 1 4 1:47 PM PROGRAM THERAPIST DERMATOPATHOLOGY LABORATORY Embedded Images 4 1:47 PM PROGRAM THERAPIST DERMATOPATHOLOGY LABORATORY Pathology/Cytology TISSUE SPECIMEN FROM SKIN / Unknown 10/08/2023 8:28 AM PROGRAM THERAPIST 10/09/2023 9:12 AM PROGRAM THERAPIST Miscellaneous samples (specimen) TISSUE SPECIMEN FROM SKIN / Unknown 10/08/2023 8:28 AM PROGRAM THERAPIST 10/09/2023 9:12 AM PROGRAM THERAPIST Miscellaneous samples (specimen) TISSUE SPECIMEN FROM SKIN / Unknown 10/08/2023 8:28 AM PROGRAM THERAPIST 10/09/2023 9:12 AM PROGRAM THERAPIST Anju Lyle MD LAB - PATHOLOGY/CYTOLOGY OR DERABLES Final Result DERMATOPATHOLOGY LABORATORY [facility] - Department of Dermatology [facility] Medicine [address] [place] [address], [address] [phone] documented in this encounter Visit Diagnoses Not on filedocumented in this encounter Care Teams Harness Repairer Relationship Specialty Start Date End Date August Garrett MD [address] [place] [address] PCP - General Family Medicine 08/10/16 04/03/24 August Garrett MD [address] [place] [address] PCP - General Family Medicine 04/04/24 [place] [address] [address] [address] Orthopedic Surgery 08/10/16 documented as of this encounter
--- OUTSIDE RECORDS SUMMARY | 2025-06-06 08:08 | XMS_ITS | Clinical Summary ---
Author Organization [facility] Address [facility] [place] [address] Care Team Providers Care Heel Seat Trimmer Name Role Phone Unavailable Primary Care Provider [...]
--- OUTSIDE RECORDS SUMMARY | 2025-06-06 08:08 | XMS_ITS | Clinical Summary ---
Author Organization [facility] Address [address] [facility] [place] [address] Care Team Providers Care Baseball Glove Stuffer Name Role Phone August Garrett MD Primary Care Provider [phone] Allergies No known active allergies Medications citalopram (CeleXA) 40 mg tabletIndicati ons:Anxiety with Depression Take 1 tablet (40 mg total) by mouth nightly 8 Active atorvastatin (LIPITOR) 40 mg tabletIndicati ons:hyperlipid emia Take 1 tablet (40 mg total) by mouth every morning Active multivitamin with minerals tabletIndicati ons:Vitamin Deficiency Prevention Take 1 tablet by mouth every morning Active famotidine (PEPCID) 20 mg tabletIndicati ons:Heartburn Take 1 tablet (20 mg total) by mouth every morning 0 Active acetaminophen 500 mg capsuleIndicat ions:Pain Take 2 capsules (1,000 mg total) by mouth every 6 (six) hours 90 tablet 2 Active aspirin 81 mg enteric coated tabletIndicati ons:Deep Vein Thrombosis Prevention Take 1 tablet (81 mg total) by mouth 2 (two) times a day for 14 days 28 tablet 2 Active docusate sodium (COLACE) 100 mg capsuleIndicat ions:constipat ion Take 1 capsule (100 mg total) by mouth 2 (two) times a day for 14 days 30 capsule 2 Active ciprofloxacin- dexAMETHasone (CIPRODEX) otic suspension SHAKE LIQUID AND INSTILL 5 DROPS INTO LEFT EAR EVERY 12 HOURS FOR 7 DAYS 4 Active predniSONE (DELTASONE) 10 mg tablet Active cyclobenzaprin e (FLEXERIL) 10 mg tablet Take 1 tablet (10 mg total) by mouth 3 (three) times a day as needed for muscle spasms 5 Active amoxicillin 500 mg tablet TAKE FOUR TS PO 1 HOUR B DAPP 5 Active gabapentin (NEURONTIN) 300 mg capsule TAKE 1 CAPSULE BY MOUTH EVERY DAY AT BEDTIME 5 Active meloxicam (MOBIC) 15 mg tablet Take 1 tablet (15 mg total) by mouth daily 30 tablet 2 5 Active ketoconazole (NIZORAL) 2 % cream APPLY EXTERNALLY DIRECTED TWICE DAILY 5 Active meclizine (ANTIVERT) 25 mg tablet TAKE 1 TABLET BY MOUTH TWICE DAILY NEEDED FOR DIZZINESS 5 Active meloxicam (MOBIC) 15 mg tablet Take 1 tablet (15 mg total) by mouth daily 30 tablet 5 08/16/20 25 Active meloxicam (MOBIC) 15 mg tablet Take 1 tablet (15 mg total) by mouth daily 30 tablet 2 5 05/18/20 25 Discontinu ed(Reorder ) Hospital, Clinic, or Other Facility Administered Medication Ordered Dose Route Frequency Start Date End Date Status BUPivacaine HCl (MARCAINE) 0.5 % (5 mg/mL) injection 6 mLIndications:Primar y osteoarthritis of left knee 6 mL OTHER One-Time Injection 05/18/2025 5 Ended triamcinolone (KENALOG) 40 mg/mL injection 80 mgIndications:Primar y osteoarthritis of left knee 80 mg intra-artic One-Time Injection 05/18/2025 5 Ended Active Problems Problem Noted Date Diagnosed Date Numbness of right hand 12/02/2024 LVH (left ventricular hypertrophy) 12/02/2024 Glenohumeral arthritis, left 08/08/2022 Anxiety 07/25/2022 Shoulder arthritis 05/24/2022 Overview (05/24/2022): Added automatically from request for surgery [id number] Localized, primary osteoarthritis of hand 2020 Pain in joint of right shoulder 01/03/2021 Overview (01/03/2021): Added automatically from request for surgery [id number] Biceps tendinitis of right upper extremity 01/03 Overview (01/03/2021): Added automatically from request for surgery [id number] Hyperlipidemia LDL goal <100 10/10/2019 KAREEN on [...] Encounters Date Type Department Care Team Description 05/18/2025 2:15 PM CDT Office Visit [facility] Medicine Orthopaedic Surgery [address] [place] [address] Medical Office Building [address] [place] [phone] Radha Guardado NP Therapeutic drug monitoring (Primary Dx); Primary osteoarthritis of left knee from Last 3 Months Immunizations Immunization Administration [...] on file Legal Sex Male 12:44 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 Gender Identity Not on file Sexual Orientation Not on file Obstetrics History Last Filed Vital Signs Vital Sign Reading Time Taken Comments Blood Pressure 120/74 12/02/2024 3:04 PM CDT Pulse 90 12/02/2024 3:04 PM CDT Temperature 36.3 C (97.4 F) 08/09/2022 8:06 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 Respiratory Rate 15 08/09/2022 8:06 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 Oxygen Saturation 92% 12/02/2024 3:04 PM CDT [...] Assessment 08/09/2023 08/09/2022 Influenza Vaccine (#1) 2025 4, 06/12/2022, 07/10/2017, Additional history exists Zoster Vaccine Completed 10/07/2018, 06/17/2018 Medical Devices Implanted Type Area Chain Person Device Identifier Shelf Expiration Date Model / Serial / Lot Rt Knee Knee [employer] Ar-2324 Bcm Swivelock 4.75mm 24.5mm Self Punch Vent Shoulder [place] Suture - [id number] Implanted:Qty: 1 on 03/03/2021 by Jayy Long MD at [facility] Right: Shoulder [employer] 12/01/2024 [id number] / / [id number] [employer] Ar-3670 Set Implant Arthrex Fibertak Biceps Sterile Latex Free - [id number] Implanted:Qty: 1 on 03/03/2021 by Jayy Long MD at [facility] Right: Shoulder [employer] 06/02/2025 AR-3670 / / [id number] [employer] Simplex P Radiopaque Full Dose Cement Bone Sterile 6191-1-010 - [id number] Implanted:Qty: 1 on 08/08/2022 by Jayy Long MD at [facility] [employer] 12/31/2024 6191-1-010 / / [id number] [employer] Union 2 Peg Monoblock Shoulder 4 Component Glenoid Sterile [id number] - [id number] Implanted:Qty: 1 on 08/08/2022 by Jayy Long MD at [facility] [employer] 01/01/2028 [id number] / / [id number] [employer] Humeral [place] Shoulder Sidus [id number] - [id number] Implanted:Qty: 1 on 08/08/2022 by Jayy Long MD at [facility] Left: Acromial Process [employer] 2031 [id number] / / [id number] [employer] Sidus Od48 Mm H17 Mm Stem Free Shoulder Head Humeral Sterile Latex Free [id number] - [id number] Implanted:Qty: 1 on 08/08/2022 by Jayy Long MD at [facility] Left: Shoulder [employer] 09/22/2031 [id number] / / [id number] Procedures Procedure Name Priority Date/Time Associated Diagnosis Comments ME ARTHROCENTESIS ASPIR&/INJ MAJOR JT/BURSA W/O US Routine 05/18/2025 2:15 PM CDT Primary osteoarthritis of left knee from Last 3 Months Results * ME ARTHROCENTESIS ASPIR&/INJ MAJOR JT/BURSA W/O US (05/18/2025 2:15 PM CDT) Narrative Radha Guardado NP - 05/18/2025 2:15 PM CDT Radha Guardado NP 05/19/2025 10:12 AM Large Joint Injection: L knee Performed by: Radha Guardado NP Authorized by: Radha Guardado NP Large Joint Injection/Aspiration: Consent Given by: Patient Site marked: the procedure site was marked Timeout: prior to procedure the correct patient, procedure, and site was verified Verbal consent obtained: Yes Written consent obtained: Yes Supporting Documentation: Indications: Pain Procedure Details: Location: Knee Site: L knee Prep: patient was prepped using a clean technique Needle Size: 21 G Approach: Anterolateral Ultrasound guided: No Fluroscopic guidance: No Medications: 6 mL BUPivacaine HCl 0.5 % (5 mg/mL); 80 mg triamcinolone 40 mg/mL Patient tolerance: Patient tolerated the procedure well with no immediate complications Radha Guardado STOCKROOM ATTENDANT IN CLINIC/BEDSIDE ORDERAB LES Final Result from Last 3 Months Insurance MEDICARE [facility] MEDICARE [facility] MEDICARE [facility] Advance Directives For more information, please contact: [phone] * Full Code (Latest Code Status on File) Date Activated Date Inactivated Comments 08/08/2022 1:46 PM 08/09/2022 3:11 PM Care Teams Baseball Glove Stuffer Relationship Specialty Start Date End Date August Garrett MD PCP - General 12/01/15
--- OUTSIDE RECORDS SUMMARY | 2025-06-06 08:08 | XMS_ITS | Encounter Summary ---
Author Organization [facility] Address [address] [place] [address] Care Team Providers Care Nuclear Medicine Physician Name Role Phone Brian Bautista MD Unavailable [phone] August Garrett MD Primary Care Provider [phone] August Garrett MD Primary Care Provider [phone] Encounter Details Date Type Department Care Team (Late st Contact Info) Description 10/01/2019 Lab Requisition [facility] DermPath Lab [address] [facility], [place] [address] Anju Lyle MD [address] [facility] 3 [place] [address] Social History Tobacco Use Types Packs/Day Years Used Date Smoking Tobacco: Never Alcohol Use Standard Drinks/Week Comments Yes 0 (1 standard drink = 0.6 oz pur e alcohol) Sex and Gender Information Value Date Recorded Sex Assigned at Not on file Legal Sex Male 5:01 AM TANKAGE GRINDER Gender Identity Not on file Sexual Orientation Not on file documented as of this encounter Plan of Treatment Not on file documented as of this encounter Procedures Procedure Name Priority Date/Time Associated Diagnosis Comments DERMATOPATHOLOGY Routine 09/30/2019 12:0 0 AM TANKAGE GRINDER documented in this encounter Results * DERMATOPATHOLOGY (09/30/2019 12:00 AM TANKAGE GRINDER) Case Report Dermatopathology Report Case: [id number] Authorizing Provider: Anju Lyle MD Collected: 09/30/2019 12:00 AM Ordering Location: [facility] DermPath Lab Received: 10/01/2019 08:10 AM Pathologist: Tom Correa MD Specimen: Skin, left ant shoulder 0 4:12 PM [facility] DERMATOPATHOLOGY LABORATORY Amended Report Changed site from left ant shoulder to right ant shoulder. 0 4:12 PM [facility] DERMATOPATHOLOGY LABORATORY Final Diagnosis Specimen A. SKIN, right ant shoulder: DERMAL SCAR RESIDUAL BASAL CELL CARCINOMA NOT IDENTIFIED (L90.5) 0 4:12 PM [facility] DERMATOPATHOLOGY LABORATORY Amendment electronically signed by Tom Correa MD on 10/06/2019 at 1612 TANKAGE GRINDER at 1329 TANKAGE GRINDER Clinical History R/O BCC, biopsy proven. 0 4:12 PM [facility] DERMATOPATHOLOGY LABORAT[facility] Gross Description Specimen A: Received is one formalin filled container labeled with the patient's name and designated right ant shoulder. The specimen consists of a non-oriented ellipse of skin measuring [id number]. The epidermal surface consists of a centrally located 5x5mm previous biopsy site. The margin is inked green. The 12 o'clock and 6 o'clock tips are submitted in cassette 1. The remainder of the ellipse is serially sectioned and submitted in cassettes 2-4. Jar 0. 0 4:12 PM [facility] DERMATOPATHOLOGY LABORATORY Microscopic Description Specimen A. SKIN, right ant shoulder: There are fibroblasts and collagen bundles oriented parallel to the skin surface. There are elongated blood vessels, some of which are oriented perpendicular to the skin surface. No basal cell carcinoma is identified. 0 4:12 PM [facility] DERMATOPATHOLOGY LABORATORY Disclaimer An external [...] purposes. Billing Codes Specimen Charges Stain Charges 55641 1 0 4:12 PM [facility] DERMATOPATHOLOGY LABORATORY Embedded Images 0 4:12 PM [facility] DERMATOPATHOLOGY LAB[facility]ATORY Pathology/Cytolog y TISSUE SPECIMEN FROM SKIN / Unknown 09/30/2019 10/01/2019 8:10 AM TANKAGE GRINDER Anju Lyle MD LAB - PATHOLOGY/CYTOLOGY OR DERABLES Edited Result - Final DERMATOPATHOLOGY LABORATORY [facility] - Department of Dermatology [address] [place] [address], [address] [phone] documented in this encounter Visit Diagnoses Not on filedocumented in this encounter Care Teams Nuclear Medicine Physician Relationship Specialty Start Date End Date August Garrett MD [address] [place] [address] PCP - General Family Medicine 08/10/16 04/03/24 August Garrett MD [address] [place] [address] PCP - General Family Medicine 04/04/24 [place] [address] [address] [address] Orthopedic Surgery 08/10/16 documented as of this encounter
--- OUTSIDE RECORDS SUMMARY | 2025-06-06 08:08 | XMS_ITS | Clinical Summary ---
Author Organization [facility] Address [address] [place] [address] Care Team Providers Care Steam Conditioning Operator Name Role Phone Brian Bautista MD Unavailable [phone] August Garrett MD Primary Care Provider [phone] Source Comments [facility],non-owned Affiliates and Associated Physician Practices is amultiple site organization consisting of ambulatory clinics and hospital sitesin [place], [place], [place] and [place]. This disclosure is being madepursuant to the Care Everywhere program and may not contain all information available regarding this patient. 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
--- OUTSIDE RECORDS SUMMARY | 2025-06-06 08:08 | XMS_ITS | Encounter Summary ---
Author Organization [facility] Address [address] [facility] [facility] [place] [address] Care Team Providers Care Property Clerk Name Role Phone Brian Bautista MD Unavailable [phone] August Garrett MD Primary Care Provider [phone] August Garrett MD Primary Care Provider [phone] Encounter Details Date Type Department Care Team (Late st Contact Info) Description 08/12/2020 Lab Requisition [facility] DermPath Lab [address] [facility], [place] [address] Anju Lyle MD [address] [facility] 3 [place] [address] Social History Tobacco Use Types Packs/Day Years Used Date Smoking Tobacco: Never Alcohol Use Standard Drinks/Week Comments Yes 0 (1 standard drink = 0.6 oz pur e alcohol) Sex and Gender Information Value Date Recorded Sex Assigned at Not on file Legal Sex Male 5:01 AM TECHNOLOGY INSTRUCTOR Gender Identity Not on file Sexual Orientation Not on file documented as of this encounter Plan of Treatment Not on file documented as of this encounter Procedures Procedure Name Priority Date/Time Associated Diagnosis Comments DERMATOPATHOLOGY Routine 08/12/2020 12:0 0 AM TECHNOLOGY INSTRUCTOR documented in this encounter Results * DERMATOPATHOLOGY (08/12/2020 12:00 AM TECHNOLOGY INSTRUCTOR) Case Report Dermatopathology Report Case: [id number] Authorizing Provider: Anju Lyle MD Collected: 08/12/2020 12:00 AM Ordering Location: [facility] DermPath Lab Received: 08/12/2020 11:24 AM Pathologist: Tom Correa MD Specimen: Skin, right FH scalp 0 4:02 PM TECHNOLOGY INSTRUCTOR DERMATOPATHOLOGY LABORATORY Final Diagnosis Specimen A. SKIN, right FH scalp: ACTINIC KERATOSIS, LICHENOID (L57.0) POST-INFLAMMATORY PIGMENT ALTERATION (L81.9) 0 4:02 PM [facility] at 1602 TECHNOLOGY INSTRUCTOR Clinical History R/O pig BCC, irregular color. 0 4:02 PM [facility] Gross Description Specimen A: Received is one formalin filled container labeled with the patient's name and designated right FH scalp. The specimen consists of a shave measuring [id number]. Jar 0. 0 4:02 PM [facility] [...] characteristic determined by the Dermatopathology Laboratory at [facility], directed by Dr. Hunter Correa. These tests need not be, and therefore are not, approved by the [place] Food and Drug Administration. The tests are used for clinical purposes. Billing Codes Specimen Charges Stain Charges 30756 1 0 4:02 PM TECHNOLOGY INSTRUCTOR DERMATOPATHOLOGY LABORATORY Embedded Images 0 4:02 PM [facility] Pathology/Cytolog y TISSUE SPECIMEN FROM SKIN / Unknown 08/12/2020 08/12/2020 11:24 AM TECHNOLOGY INSTRUCTOR Anju Lyle MD LAB - PATHOLOGY/CYTOLOGY OR DERABLES Final Result DERMATOPATHOLOGY LABORATORY [facility] - Department of Dermatology [facility] Medicine [address] [facility], 3rd Floor [address] [phone] documented in this encounter Visit Diagnoses Not on filedocumented in this encounter Care Teams Property Clerk Relationship Specialty Start Date End Date August Garrett MD [address] [place] [address] PCP - General Family Medicine 08/10/16 04/03/24 August Garrett MD [address] [place] [address] PCP - General Family Medicine 04/04/24 [place] [address] [address] [address] Orthopedic Surgery 08/10/16 documented as of this encounter
--- OUTSIDE RECORDS SUMMARY | 2025-06-06 08:08 | XMS_ITS | Encounter Summary ---
Author Organization [facility] Address [address] [place] [address] Care Team Providers Care Sail Cutter Name Role Phone Brian Bautista MD Unavailable [phone] August Garrett MD Primary Care Provider [phone] August Garrett MD Primary Care Provider [phone] Encounter Details Date Type Department Care Team (Late st Contact Info) Description 07/04/2019 Lab Requisition [facility] DermPath Lab [address] [facility], [place] [address] Anju Lyle MD [address] [facility] 3 [place] [address] Social History Tobacco Use Types Packs/Day Years Used Date Smoking Tobacco: Never Alcohol Use Standard Drinks/Week Comments Yes 0 (1 standard drink = 0.6 oz pur e alcohol) Sex and Gender Information Value Date Recorded Sex Assigned at Not on file Legal Sex Male 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 Gender Identity Not on file Sexual Orientation Not on file documented as of this encounter Plan of Treatment Not on file documented as of this encounter Procedures Procedure Name Priority Date/Time Associated Diagnosis Comments DERMATOPATH TECHNICAL REPORT Routine 07/04/2019 12:00 AM CDT documented in this encounter Results * DERMATOPATH TECHNICAL REPORT (07/04/2019 12:00 AM CDT) Case Report Dermatopathology Report Case: [id number] Authorizing Provider: Anju Lyle MD Collected: 07/04/2019 12:00 AM Ordering Location: [facility] DermPath Lab Received: 07/04/2019 11:45 AM Pathologist: Tom Correa MD Specimen: Skin, right anterior shoulder 12:57 PM [facility] DERMATOPATHOLOGY LABORATORY Clinical History R/O BCC, irritated. 12:57 PM [facility] DERMATOPATHOLOGY LABORATORY Gross Description Specimen A: Received is one formalin filled container labeled with the patient's name and designated right anterior shoulder. The specimen consists of a shave measuring [id number]. Jar 0. [facility] Dermatopathology Laboratory performed the technical component only. [...] characteristic determined by the Dermatopathology Laboratory at [facility], directed by Dr. Hunter Correa. These tests need not be, and therefore are not, approved by the [place] Food and Drug Administration. The tests are used for clinical purposes. 12:57 PM CDT DERMATOPATHOLOGY LABORATORY at [address] [place] [address] Pathology/Cytolog y TISSUE SPECIMEN FROM SKIN / Unknown 07/04/2019 07/04/2019 11:45 AM CDT Anju Lyle MD LAB - PATHOLOGY/CYTOLOGY OR DERABLES Final Result DERMATOPATHOLOGY LABORATORY [facility] - Department of Dermatology [facility] [facility], 5th [place] [address], [facility] [phone] documented in this encounter Visit Diagnoses Not on filedocumented in this encounter Care Teams Sail Cutter Relationship Specialty Start Date End Date August Garrett MD [address] [place] [address] PCP - General Family Medicine 08/10/16 04/03/24 August Garrett MD [address] [place] [address] PCP - General Family Medicine 04/04/24 [place] [address] [address] Orthopedic Surgery 08/10/16 documented as of this encounter
--- OUTSIDE RECORDS SUMMARY | 2025-06-06 08:08 | XMS_ITS | Encounter Summary ---
Author Organization [facility] Address [address] [place] [address] Phone Care Team Providers Care Credit Risk Modeler Name Role Phone August Garrett MD Primary Care Provider [phone] Encounter Details Date Type Department Care Team [...] on file Legal Sex Male 12:44 AM BRICK SIDING APPLICATOR Gender Identity Not on file Sexual Orientation Not on file documented as of this encounter Plan of Treatment Not on file documented as of this encounter Procedures Procedure Name Priority Date/Time Associated Diagnosis Comments SCAN - RADIOLOGY/IMAGING 08/08/2023 8:02 AM BRICK SIDING APPLICATOR documented in this encounter Results * SCAN - RADIOLOGY/IMAGING (08/08/2023 8:02 AM BRICK SIDING APPLICATOR) Anatomical Region Laterality Modality Other us Provider Scanning Final Result documented in this encounter Visit Diagnoses Not on filedocumented in this encounter Care Teams Credit Risk Modeler Relationship Specialty Start Date End Date August Garrett MD PCP - General 12/01/15 documented as of this encounter
--- OUTSIDE RECORDS SUMMARY | 2025-06-06 08:08 | XMS_ITS | Encounter Summary ---
Author Organization [facility] Address [address] [place] [address] Care Team Providers Care Electronic Assembler Group Leader Name Role Phone August Garrett MD Primary Care Provider [phone] Encounter Details Date Type Department Care Team (Late st Contact Info) Description 07/24/2022 Treatment [facility] PATH[facility]Y [address] [facility] 3rd [place] [address] Manish Dejesus MD [facility] [address] [facility] [phone] [place] [address] Social History Tobacco Use Types Packs/Day Years [...] on file Legal Sex Male 12:44 AM MILLER KILN DRIED SALT Gender Identity Not on file Sexual Orientation [...] this patient. Contact Information: Please contact the [facility] with any questions. This report has been prepared by: Manish Dejesus MD Cosigned by Leslie Beebe MD PhD at 07/26/2022 4:21 PM MILLER KILN DRIED SALT ER KILN DRIED SALT ER KILN DRIED SALT ER KILN DRIED SALT ER KILN DRIED SALT Associated attestation - Leslie Beebe MD PhD - 07/26/2022 4:21 PM MILLER KILN DRIED SALT Attestation: I have personally reviewed the antibody result and agree with the interpretation contained in this written blood bank report. Leslie Beebe MD PhD documented in this encounter Plan of Treatment Not on file documented as of this encounter Visit Diagnoses Not on filedocumented in this encounter Care Teams Electronic Assembler Group Leader Relationship Specialty Start Date End Date August Garrett MD PCP - General 12/01/15 documented as of this encounter
--- OUTSIDE RECORDS SUMMARY | 2025-06-06 08:08 | XMS_ITS | Encounter Summary ---
Author Organization [facility] Address [address] [facility] [place] [address] Care Team Providers Care Health Unit Coordinator Name Role Phone Brian Bautista MD Unavailable [phone] August Garrett MD Primary Care Provider August Garrett MD Primary Care Provider [phone] Encounter Details Date Type Department Care Team (Late st Contact Info) Description 02/10/2020 Lab Requisition [facility] Derm[facility] Lab [address] [facility] [place] [address] Anju Lyle MD [address] [facility] 3 DE[place] [address] Social History Tobacco Use Types Packs/Day Years Used Date Smoking Tobacco: Never Alcohol Use Standard Drinks/Week Comments Yes 0 (1 standard drink = 0.6 oz pur e alcohol) Sex and Gender Information Value Date Recorded Sex Assigned at Not on file Legal Sex Male 5:01 AM DIRECTOR OF EARLY CHILDHOOD EDUCATION Gender Identity Not on file Sexual Orientation Not on file documented as of this encounter Plan of Treatment Not on file documented as of this encounter Procedures Procedure Name Priority Date/Time Associated Diagnosis Comments DERMATOPATHOLOGY Routine 02/10/2020 12:0 0 AM CDT documented in this encounter Results * DERMATOPATHOLOGY (02/10/2020 12:00 AM CDT) Case Report Dermatopathology Report Case: [id number] Authorizing Provider: Anju Lyle MD Collected: 02/10/2020 12:00 AM Ordering Location: [facility] Lab Received: 02/10/2020 11:22 AM Pathologist: [...] characteristic determined by the Dermatopathology Laboratory at [facility], directed by Dr. Hunter Correa. These tests need not be, and therefore are not, approved by the [place] Food and Drug Administration. The tests are used for clinical purposes. Billing Codes Specimen Charges Stain Charges 98098 1 0 1:52 PM CDT DERMATOPATHOLOGY LABORATORY Embedded Images 0 1:52 PM CDT DERMATOPATHOLOGY LABORATORY Pathology/Cytolog y TISSUE SPECIMEN FROM SKIN / Unknown 02/10/2020 02/10/2020 11:22 AM CDT us Anju Lyle MD LAB - PATHOLOGY/CYTOLOGY OR DERABLES Final Result DERMATOPATHOLOGY LABORATORY [facility] - Department of Dermatology [employer] [place]/[address] [phone] documented in this encounter Visit Diagnoses Not on filedocumented in this encounter Care Teams Health Unit Coordinator Relationship Specialty Start Date End Date August Garrett MD [address] [place] [address] PCP - General Family Medicine 08/10/16 04/03/24 August Garrett MD [address] [place] [address] PCP - General Family Medicine 04/04/24 [place] [address] [address] Orthopedic Surgery 08/10/16 documented as of this encounter
[2025-06-06 08:15] VITALS: BP 134/74; PULSE 53; RESP 18; TEMP 36.2; O2SAT 97
== END 2025-06-06 08:32 | disposition home or self-care (01) ==
PROVIDERS: Emergency Provider Nurse Practitioner Family; PCP Family Medicine
DX: L03.114 Cellulitis of left upper limb (principal)
CPT/HCPCS: 99213; G0463